=== PATIENT | female | born 1940 | race Caucasian/White ===

== ENCOUNTER 2016-09-07 16:53 | Emergency (ER) | payer MEDICAID ==
[2016-09-07 17:18] VITALS: BP 137/66
--- NOTE | 2016-09-07 18:09 | ED ---
GI/ HPI - HPI Summary HPI Summary: 75 yr old female who missed two appointment with Dr Kaur on Wednesday and one appointment missed today with her as well. She presents here with complaint of loose stool for a month. No blood or black stool. She denies abdominal pain, fever, chills. She denies weakness. The patient complains of also having chronic spine pain for 50 years and she wants me to prescribe percocet. She states non of her doctors will give her percocet. She states the place she lives is purposely mis informing her of appointments because they hate her. In discussing the case with Dr Matthew control panel operator crude unit for Dr Kaur, he states the patient has schizophrenia, and that they are aware of the patient coming here. - History of Current Complaint Chief Complaint: UCGI Time Seen by Provider: 09/07/16 17:29 Stated Complaint: DIARRHEA - Allergy/Home Medications Allergies/Adverse Reactions: Allergies Allergy/AdvReac Type Severity Reaction Status Date / Time No Known Allergies Allergy Verified 09/07/16 17:06 Home Medications: Home Medications Acetaminophen TAB* [Tylenol TAB*] 2 tab PO BID 09/07/16 [History Confirmed 09/07] Amlodipine Besylate [Norvasc 2.5 mg tab] 1 tab PO DAILY 09/07/16 [History Confirmed 09/07/16] Amlodipine Besylate [Norvasc 2.5 mg tab] 1 tab PO QPM 09/07/16 [History Confirmed 09/07/16] Amlodipine Besylate [Norvasc 5 mg tab] 1 tab PO QPM 09/07/16 [History Confirmed 09/07/16] Aspirin [Aspirin 81 MG TAB] 1 tab PO DAILY 09/07/16 [History Confirmed 09/07/16] Atorvastatin* [Lipitor 20 MG*] 1 tab PO QAM 09/07/16 [History Confirmed 09/07/16 ] Dextromethorphan-Guaifenesin [Mucinex Dm Maximum Streng 60-1200 mg] 1 tab PO BID PRN 09/07/16 [History Confirmed 09/07/16] Divalproex ER TAB(*) [Depakote ER TAB(*)] 1 tab PO QPM 09/07/16 [History Confirmed 09/07/16] Escitalopram Oxalate [Lexapro] 1 tab PO QAM 09/07/16 [History Confirmed 09/07/16 ] Gabapentin CAP(*) [Neurontin 100 mg CAP(*)] 1 tab PO TID 09/07/16 [History Confirmed 09/07/16] Incontinence Supplies Disposab [Prevail Brief/Small] 1 udc TRANSDERM DAILY PRN 09/07/16 [History Confirmed 09/07/16] Incontinence Supplies Disposab [Underpads Extra Large] 1 pad TRANSDERM TID PRN 09/07/16 [History Confirmed 09/07/16] Latanoprost 0.005% OPTH (NF) [Xalatan 0.005% OPTH*] 1 drop BOTH EYES BEDTIME [History Confirmed 09/07/16] Magnesium Oxide TAB* [MagOx 400 TAB*] 1 tab PO QAM 09/07/16 [History Confirmed 09/07/16] Meloxicam(NF) [Mobic(NF)] 1 tab PO QAM 09/07/16 [History Confirmed 09/07/16] Nicotine PATCH 7 MG/24 HR* 1 patch TRANSDERM DAILY 09/07/16 [History Confirmed 09/07/16] Olanzapine [Zyprexa] 1 tab PO BEDTIME 09/07/16 [History Confirmed 09/07/16] Sennosides-Docusate Sodium [Isa-Colace 8.6-50 mg] 1 tab PO BID 09/07/16 [ History Confirmed 09/07/16] Timolol 0.25% OPHTH.SOLN* [Timoptic Ophth.soln 0.25%*] 1 drop BOTH EYES DAILY [History Confirmed 09/07/16] Tiotropium CAP.INH* [Spiriva CAP.INH*] 1 cap INH DAILY 09/07/16 [History Confirmed 09/07/16] Tolterodine Tartrate [Detrol LA] 1 tab PO QAM 09/07/16 [History Confirmed ] Venlafaxine EXT RELEASE CAP* [Effexor Xr CAP*] 1 tab PO DAILY 09/07/16 [History Confirmed 09/07/16] busPIRone TAB* [Buspar TAB*] 1 tab PO TID 09/07/16 [History Confirmed 09/07/16] PMH/Surg Hx/FS Hx/Imm Hx Previously Healthy: Yes Endocrine/Hematology History: Denies: Hx Diabetes, Hx Thyroid Disease Cardiovascular History: Denies: Hx Hypertension Respiratory History: Reports: Hx Chronic Obstructive Pulmonary Disease (COPD) Denies: Hx Asthma GI History: Denies: Hx Ulcer - Cancer History Cancer Type, Location and Year: BREAST CANCER 2016 - RIGHT SIDE MASTECTOMY - Surgical History Surgery Procedure, Year, and Place: 2016 MASTECTOMY Infectious Disease History: No Infectious Disease History: Reports: Hx Shingles - AT AGE 35 Denies: Hx Clostridium Difficile, Hx Hepatitis, Hx Human Immunodeficiency Virus (HIV), Hx of Known/Suspected MRSA, Hx Tuberculosis, Hx Known/Suspected VRE , Hx Known/Suspected VRSA, History Other Infectious Disease, Traveled Outside the [place] in Last 30 Days - Family History Known Family History: Positive: Unknown - patient does not know - Social History Alcohol Use: None Substance Use Type: Reports: None Smoking Status (MU): Heavy Every Day Tobacco Smoker Type: Cigarettes Amount Used/How Often: SMOKING SINCE AGE 23 YOA. SMOKES 1 PPD Review of Systems Constitutional: Negative Eyes: Negative ENT: Negative Cardiovascular: Negative Respiratory: Negative Positive: Diarrhea Positive: Other - chronic back pain Skin: Negative Neurological: Negative Psychological: Normal All Other Systems Reviewed And Are Negative: Yes Physical Exam Triage Information Reviewed: Yes Vital Signs On Initial Exam: Initial Vitals Temp Pulse Resp BP Pulse Ox 98.2 F 77 16 137/66 99 09/07/16 17:08 09/07/16 17:08 09/07/16 17:08 09/07/16 17:08 09/07/16 17:08 Vital Signs Reviewed: Yes Appearance: Positive: Well-Appearing, No Pain Distress, Well-Nourished Skin: Positive: Warm Head/Face: Positive: Normal Head/Face Inspection Eyes: Positive: Normal, EOMI ENT: Positive: Pharynx normal Neck: Positive: Supple Respiratory/Lung Sounds: Positive: Clear to Auscultation, Breath Sounds Present Cardiovascular: Positive: Normal, RRR. Negative: Murmur Abdomen Description: Positive: Nontender Musculoskeletal: Positive: Normal, Strength/ROM Intact Neurological: Positive: Normal, Sensory/Motor Intact, Alert, Oriented to Person Place, Time, CN Intact II-III Psychiatric: Positive: Normal Diagnostics - Vital Signs Vital Signs Temp Pulse Resp BP Pulse Ox 09/07/16 17:08 98.2 F 77 16 137/66 99 - Laboratory Lab Statement: Any lab studies that have been ordered have been reviewed, and results considered in the medical decision making process. GIGU Course/Dx - Course Course Of Treatment: 75 yr old female with schizophrenia and multiple complaints. Her PMD will call the patient and the place where she lives and arrange transport for the patient to their office for a follow up visit. - Diagnoses Provider Diagnoses: Diarrhea Discharge - Discharge Plan Condition: Good Disposition: HOME Patient Education Materials: Chronic Diarrhea (ED) Referrals: Non Staff,Doctor [Primary Care Provider] - Beverly Kaur MD [Medical Doctor] -
== END 2016-09-07 18:33 | disposition home or self-care (01) ==
LOC: UCCORT 16:53
DX: R19.7 Diarrhea, unspecified (principal); F20.9 Schizophrenia, unspecified; F17.210 Nicotine dependence, cigarettes, uncomplicated; Z79.82 Long term (current) use of aspirin; Z85.3 Personal history of malignant neoplasm of breast; M54.9 Dorsalgia, unspecified; G89.29 Other chronic pain
CPT/HCPCS: 99202; G0463

== ENCOUNTER 2017-08-29 18:06 | Inpatient (IN) | payer MEDICARE, MEDICAID ==
[2017-08-29] MEDS ORDERED: Acetaminophen TAB* 325 MG PO ONE (19:43)
[2017-08-29] MEDS ORDERED: LORazepam TAB(*) 1 MG PO ONE (19:46)
[2017-08-29] MEDS ORDERED: Haloperidol TAB* 5 MG PO ONE (19:47)
[2017-08-29] MEDS ORDERED: diPHENhydraMINE PO* 50 MG PO ONE (19:47)
--- OUTSIDE RECORDS SUMMARY | 2017-08-29 19:50 | XMS REPORT ---
:1940 External Reference #:[id number] Author Organization [facility] Address [address] [place] [id number] Phone [phone] Care Team Providers Name Role Phone Beverly Kaur M.D. Care Team Information Tube Test Technician Unavailable Jocelin Kern MD Primary Care Physician Unavailable Payers Type Date Identification Numbers Payment Provider Subscriber Medicare Primary Effective: Policy Number: [id number] Medicare Bernadette Trotter 2007 PayID: [id number] [address] [place] [address] Medigap Part B Policy Number: [id number] Medicaid Bernadette Trotter Group Name: 1 1 [address] PayID: [id number] [place] [address] Problems Date Description Provider Status Onset: 10/23/2011 Urinary incontinence Maribel Angeles M.D Active Onset: 06/15/2017 Incompetent urethral closure Muna Pierce M.D. Active mechanism Onset: 06/15/2017 Microscopic hematuria Muna Pierce M.D. Active Onset: 06/15/2017 Retention of urine Muna Pierce M.D. Active Onset: 06/15/2017 Mixed urinary incontinence Muna Pierce M.D. Active Onset: 07/29/2017 Female stress incontinence Muna Pierce M.D. Active Onset: 07/29/2017 Uninhibited neurogenic bladder Muna Pierce M.D. Active Onset: 06/15/2017 Nocturia Muna Pierce M.D. Active Onset: 06/15/2017 Atrophic vaginitis Muna Pierce M.D. Active Onset: 06/15/2017 Urge incontinence of urine Muna Pierce M.D. Active Onset: 06/15/2017 Nocturnal enuresis Muna Pierce M.D. 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 Hyperkalemia Active Onset: 01/28/2016 Obsessive-compulsive disorder Active Onset: 01/28/2016 Schizoaffective disorder, manic Active type Onset: 01/28/2016 Chronic obstructive lung disease Active Onset: 01/28/2016 Hypoxia Active Onset: 03/12/2016 History of right mastectomy Active Family History Date Family Member(s) Problem(s) Comments First Brother Prostate Cancer First Sister Breast Cancer Social History Type Date Description Comments Marital Status Occupation Patient is retired Cigarette Use 03/18/2017 currently smokes 1/2 Pack Daily Cigars Never Smoked Cigars Pipe Never Smoked A Pipe ETOH Use Patient denies alcohol use Allergies, Adverse Reactions, Alerts Date Description Reaction Status Severity Comments 10/23/2011 Navane active 10/23/2011 Naproxen active 10/23/2011 Propoxyphene active 12/27/2015 Hydrocodone Nausea And Vomiting active 10/23/2011 Apap active 12/27/2015 Methadone active 10/23/2011 Tetanus active 12/27/2015 Oxycodone active 12/27/2015 Tetanus Toxoids active Medications Medication Date Status Form Strength Qnty SIG Indications Ordering Provider Myrbetriq 06/15 Active Tablets ER 50mg 30tab 1 po qd R35.1 24HR s Muna Delarosa M.D. Estrace 06/15 Active Cream 0.1mg/GM 42.5u 1/4 Gram To N95.2 nits Periurethra Muna Delarosa M.D. Daily Tolterodine 12/04 Active Caps ER 4mg 30cap 1 by mouth Herson-Sha Tartrate ER 24HR s every day Maribel foster M.D Amlodipine 08/27 Active Tablets 5mg Take 5 mg Unknown Besylate by mouth daily Calcium 600 Active Tablets 600mg daily Unknown / Depakote ER Active Tablets ER 500mg bid Unknown 24HR Docusate Sodium Active Capsules 100mg 60cap 1 po bid Unknown /0000 s Buspirone HCL Active Unknown / Magnesium Oxide Active Unknown -MG Supplement Nicotine Active Unknown Transdermal / System Spiriva Active Unknown Respimat / Trazodone HCL Active Tablets 50mg Unknown / Aspirin Ec Low Active Tablets DR 81mg Take 81 mg Unknown Dose / by mouth daily Latanoprost Active Solution 0.005% Administer Unknown / 1 drop to both eyes nightly Olanzapine Active Tablets 5mg Take 5 mg Unknown /0000 by mouth nightly Oxybutynin Active Tablets 5mg Take 5 mg Unknown Chloride / by mouth 3 (three) times a day Lorazepam Active Tablets 0.5mg Take 0.5 mg Unknown /0000 by mouth every 4 (four) hours as needed for anxiety Atorvastatin Active Tablets 20mg Take 20 mg Unknown Calcium /0000 by mouth nightly Meloxicam Active Tablets 7.5mg Take 7.5 mg Unknown /0000 by mouth daily Nystatin Active Suspension [id number] Take Unknown /0000 t/ML 500,000 Units by mouth daily Sennosides-Docu Active Tablets 8.6-50mg Take 2 Unknown sate Sodium /0000 tablets by mouth nightly Timolol Maleate Active Solution 0.25% Administer Unknown /0000 1 drop to both eyes daily Venlafaxine HCL Active Caps ER 75mg Take 75 mg Unknown ER /0000 24HR by mouth daily Acetaminophen Active Tablets 500mg Take 2 Unknown Extra Strength /0000 tablets by mouth every 8 (eight) hours as needed for pain or fever Duloxetine HCL Active Caps DR 20mg Take 40 mg Unknown /0000 Part by mouth Gabapentin Active Capsules 300mg Take 300 mg Unknown /0000 by mouth Lactaid Fast Active Chewtabs 9000Unit Chew 1 Unknown Act /0000 tablet Pantoprazole Active Tablets DR 40mg Take 40 mg Unknown Sodium / by mouth Viibryd Active Tablets 20mg Take 1 Unknown tablet by mouth daily Polyethylene Active Powder 3350NF Take 17 g Unknown Glycol 3350 /0000 by mouth Albuterol Active Nebulizer (2.5mg/3M Inhale 2.5 Unknown Sulfate /0000 L) 0.083% mg Ventolin HFA Active Aerosol 108(90Bas Inhale 2 Unknown / e) puffs mcg/Act Ipratropium Active Solution 0.5-2.5(3 Inhale 3 mL Unknown [place]/Albuter /0000 )mg/3ML ol Sulfate Mirtazapine Active Tablets 7.5mg Take 7.5 mg Unknown / by mouth Nitrofurantoin 03/22 Hx Capsules 100mg 14cap 1 by mouth Simeon Monohyd Macro s twice a day Luzmaria foster M.D 06/15 Cephalexin 03/02 Hx Capsules 250mg 9caps 1 by mouth Simeon /2016 every 8 cristian, - hours for 3 Shaheen López Ciprofloxacin 11/16 Hx Tablets 250mg 2tabs 1 by mouth Rory, PO HCL /2016 after Jl Sherman - office 11/17 procedure and one in [address]. [address] Valadez Nystatin/Triamc 10/22 Hx Cream [id number]. 1tube apply twice Simeon inolone /2011 1Unit/GM- per day to cristian - % groin as Shaheen López 11/08 directed x 2 weeks Abilify Hx Tablets 30mg daily Unknown / - 11/08 Evista Hx Tablets 60mg Unknown - 11/08 Glucosamine/Cho Hx Capsules 500-400mg bid Unknown ndroitin / - 11/08 Inderal Hx Caps ER 10mg prn 24HR - 11/08 Lexapro Hx Tablets 20mg Unknown - 11/08 Lisinopril Hx Tablets 10mg Unknown - 11/08 Multi Vitamin Hx Capsules Unknown - 11/[address] 40mg Unknown - 11/08 Seroquel XR Hx Tablets ER 300mg Unknown 24HR - 11/08 Zocor Hx Tablets 40mg daily Unknown - 11/08 Olanzapine Hx - 01/15 Vital Signs Date Vital Result Comment 07/29/2017 BP Systolic 142 mmHg BP Diastolic 92 mmHg Post Void Residual ml 0 Bladder Scanner, Indication: med check 06/15/2017 Height 57 inches 4'9" Weight 180.00 lb Weight in kg's 81.648 BMI (Body Mass Index) 38.9 kg/m2 BP Systolic 130 mmHg BP Diastolic 82 mmHg Post Void Residual ml 0 Bladder Scan, Indication: incont 03/18/2017 Height 57 inches 4'9" BP Systolic 113 mmHg BP Diastolic 72 mmHg Heart Rate 79 /min Body Temperature 98.3 F PO Post Void Residual ml 54 Bladder Scan, Indication:frequency 03/02/2017 Height 57.01 inches 4'9.01" BMI (Body Mass Index) 35.49 kg/m2 03/02/2017 BP Systolic 152 mmHg BP Diastolic 83 mmHg Heart Rate 74 /min Respiratory Rate 16 /min Body Temperature 97.6 F 01/18/2017 Post Void Residual ml 63 Bladder Scan, Indication:frequency 11/09/2016 Height 57 inches 4'9" Weight 170.00 lb Weight in kg's 77.112 BMI (Body Mass Index) 36.8 kg/m2 BP Systolic 143 mmHg BP Diastolic 87 mmHg Heart Rate 81 /min Post Void Residual ml 14 Bladder Scan, Indication: retention 10/23/2011 Height 63 inches 5'3" Weight 170.00 lb Weight in kg's 77.112 BMI (Body Mass Index) 30.1 kg/m2 BP Systolic 155 mmHg BP Diastolic 92 mmHg Heart Rate 81 /min Results Test Date Test Result H/L Range Note 230 Ua Routine 07/29/2017 Ua Glucose Negative Ua Protein Negative Ua Nitrite Negative Ua Leuko Trace Ua Blood Negative Ua Color Not Entered Ua Ketones Trace Ua Clarity Not Entered Ua Specific [place] 1.025 1.003-1.030 Ua PH 6.0 5.0-7.5 Ua Bilirubin Negative Ua Urobilinogen 0.2 E.U./dL 0.0-1.0 230 Ua Routine 06/15/2017 Ua Glucose Negative Ua Protein Negative Ua Nitrite Negative Ua Leuko Small Ua Blood Negative Ua Color Not Entered Ua Ketones Negative Ua Clarity Not Entered Ua Specific [place] 1.015 1.003-1.030 Ua PH 6.5 5.0-7.5 Ua Bilirubin Negative Ua Urobilinogen 0.2 E.U./dL 0.0-1.0 Laboratory test finding 03/18/2017 Urine Culture SPECIMEN DESCRI> 1 230 Ua Routine 03/18/2017 Ua Glucose Negative Ua Protein Trace Ua Nitrite Negative Ua Leuko Trace Ua Blood Trace-intact Ua Color Not Entered Ua Ketones Trace Ua Clarity Not Entered Ua Specific [place] 1.015 1.003-1.030 Ua PH 6.0 5.0-7.5 Ua Bilirubin Small Ua Urobilinogen 0.2 E.U./dL 0.0-1.0 Ua RFX Micro & Culture II 02/25/2017 Urine Color YELLOW Yellow Urine Clarity CLEAR Clear Urine Glucose - Dipstick NEGATIVE mg/dL Negative Urine Bilirubin - Dipstick NEGATIVE Negative Urine Ketone TRACE mg/dL High Negative Urine Specific [place] <=1.005 Low 1.010-1.030 Urine Blood NEGATIVE Negative Urine PH 7.0 6.5-7.5 Urine Protein - Dipstick NEGATIVE mg/dL Negative Urine Urobilinogen - Dipstick 0.2 E.U./dL 0.2-1.0 Urine Nitrite - Dipstick NEGATIVE Negative Urine Leuk Esterase NEGATIVE Negative Urine Culture 02/25/2017 Urine Culture ENTEROCOCCUS CASE <SEE NOTE> 2 Quantity > 100,000 CFU/mL 3 Urine Culture URETHRAL DENIZ Quantity 10,000 - 50,000 <SEE NOTE> 4 Enterococcus Faecalis 02/25/2017 Penicillin G 8 Tetracycline >=16 Nitrofurantoin <=16 Ampicillin <=2 Amoxicillin <pending> Amoxicillin/Clavulanate <pending> Ampicillin/Sulbactam <pending> Ciprofloxacin >=8 Levofloxacin >=8 Piperacillin <pending> Vancomycin 1 CBC W/Diff 02/15/2017 Hemoglobin 12.4 Hematocrit 37.8 CMP 02/15/2017 BUN - Urea Nitrogen 26 Creatinine 0.9 Calcium 8.4 Alkaline Phosphatase 80 Ast (Sgot) 19 Potassium 5.0 Alt (SGPT) 28 230 Ua Routine 01/18/2017 Ua Glucose Negative Ua Protein Negative Ua Nitrite Negative Ua Leuko Small Ua Blood Negative Ua Color Not Entered Ua Ketones Trace Ua Clarity Not Entered Ua Specific [place] 1.020 1.003-1.030 Ua PH 5.5 5.0-7.5 Ua Bilirubin Small Ua Urobilinogen 1.0 E.U./dL 0.0-1.0 230 Ua Routine 12/04/2016 Ua Glucose Negative Ua Protein 30 mg/dL Ua Nitrite Negative Ua Leuko Small Ua Blood Negative Ua Color Not Entered Ua Ketones Negative Ua Clarity Not Entered Ua Specifici [place] >=1.030 1.003-1.030 Ua PH 5.0 5.0-7.5 Ua Bilirubin Negative Ua Urobilinogen 0.2 E.U./dL 0.0-1.0 230 Ua Routine 11/16/2016 Ua Glucose Negative Ua Protein Negative Ua Nitrite Negative Ua Leuko Moderate Ua Blood Trace-lysed Ua Color Not Entered Ua Ketones Negative Ua Clarity Not Entered Ua Specifici [place] <=1.005 1.003-1.030 Ua PH 6.0 5.0-7.5 Ua Bilirubin Negative Ua Urobilinogen 0.2 E.U./dL 0.0-1.0 Laboratory test finding 11/09/2016 Urine Culture SPECIMEN DESCRI> 5 230 Ua Routine 11/09/2016 Ua Glucose Negative Ua Protein 30 mg/dL Ua Nitrite Negative Ua Leuko Large Ua Blood Small Ua Color Not Entered Ua Ketones Trace Ua Clarity Not Entered Ua Specifici [place] 1.025 1.003-1.030 Ua PH 5.5 5.0-7.5 Ua Bilirubin Small Ua Urobilinogen 0.2 E.U./dL 0.0-1.0 Laboratory test finding 09/03/2016 Urine Culture Mixed Deniz CBC W/Diff 09/01/2016 Hemoglobin 13.7 Hematocrit 40.0 CMP 09/01/2016 BUN - Urea Nitrogen 21 Creatinine 0.9 #Ua Routine 11/02/2011 Ua Glucose Negative Ua Protein Negative Ua Nitrite Negative Ua Leuko Negative Ua Blood Trace-lysed Ua Color Not Entered Ua Ketones Negative Ua Clarity Not Entered Ua Specific [place] 1.010 Ua PH 7.0 Ua Bilirubin Negative Ua Urobilinogen 0.2 E.U./dL #Ua Routine 10/23/2011 Ua Glucose Negative Ua Protein Negative Ua Nitrite Negative Ua Leuko Negative Ua Blood Negative Ua Color Not Entered Ua Ketones Trace Ua Clarity Not Entered Ua Specific [place] 1.015 Ua PH >=9.0 Ua Bilirubin Negative Ua Urobilinogen 0.2 E.U./dL 1 SPECIMEN DESCRIPTION BLADDER URINE CULTURE RESULTS >100,000 CFU/ML ENTEROCOCCUS SPECIES >100,000 CFU/ML BETA HEMOLYTIC STREPTOCOCCI GROUP B ISOLATED NOTE: BETA HEMOLYTIC STREPTOCOCCI ARE STILL UNIFORMLY SUSCEPTIBLE TO PENICILLINS AND CEPHALOSPORINS. A SUSCEPTIBILITY WILL BE PERFORMED UPON REQUEST. REPORT STATUS FINAL 03/21/2017 ORGANISM ENTEROCOCCUS SPECIES METHOD MANISH AMPICILLIN <=2 SUSCEPTIBLE ISOLATES SUSCEPTIBLE TO AMPICILLIN ARE ALSO SUSCEPTIBLE TO AMOXICILLIN. CIPROFLOXACIN >=8 RESISTANT LEVOFLOXACIN >=8 RESISTANT NITROFURANTOIN <=16 SUSCEPTIBLE VANCOMYCIN 1 SUSCEPTIBLE ENTEROCOCCI ARE RESISTANT TO ALL CEPHALOSPORINS,CLINDAMYCIN, TRIMETHOPRIM/SULFA AND AMINOGLYCOSIDES (EXCEPT FOR HIGH-LEVEL RESISTANCE SCREENING), THESE ARE NOT REPORTED PER [facility] STANDARDS. 2 ENTEROCOCCUS FAECALIS 3 > 100,000 CFU/mL 4 10,000 - 50,000 CFU/mL 5 SPECIMEN DESCRIPTION BLADDER URINE CULTURE RESULTS MIXED UROGENITAL DENIZ; PLEASE SUBMIT A NEW SPEC IMEN IF CLINICALLY INDICATED. REPORT STATUS FINAL 11/10/2016 Procedures Date CPT Code Description Status Comment 07/29/2017 04425 Bladder Scan, Post Voiding Residual Urine Completed 06/15/2017 83531 Bladder Scan, Post Voiding Residual Urine Completed 03/18/2017 66021 Bladder Scan, Post Voiding Residual Urine Completed 03/02/2017 62309 Injection, Endoscopic Of Implant Material Into Completed The Submucosal-Hos 01/18/2017 02153 Bladder Scan, Post Voiding Residual Urine Completed 12/04/2016 43857 Cystourethroscopy, Separate Procedure Completed 12/04/2016 96127 Urodynamics, Voiding Pressure Studies Intra Completed Abdominal Prof Comp 12/04/2016 25902 Urodynamics, Electromyography Studies EMG Of Completed Anal Or Urethra pc 12/04/2016 83129 Complex Cystometrogram, With Voiding Pressure Completed Studies Prof Comp 11/16/2016 48054 Urodynamics, Voiding Pressure Studies Intra Completed Abdominal Tech Comp 11/16/2016 44030 Urodynamics, Electromyography Studies EMG Of Completed Anal Or Urethra TC 11/16/2016 54353 Complex Cystometrogram, With Voiding Pressure Completed Studies Tech Comp 11/09/2016 33936 Bladder Scan, Post Voiding Residual Urine Completed 11/09/2016 Colonoscopy Completed 2017 11/02/2011 61480 Cystourethroscopy, Separate Procedure Completed Encounters Type Date Location Provider CPT E/M Dx Office Visit 07/29/2017 1:15p [place]/ [place].M.Muna Alejandro, 20207 N39.3 Urology M.D. N36.42 N39.41 N31.0 Office Visit 06/15/2017 1:30p [place]/ [place].M.Muna Alejandro, [address]005 N36.42 Urology M.D. R31.29 R33.8 N39.41 N95.2 R35.1 Office Visit 03/18/2017 10:10a [facility] Maribel Baker, [address]/ A.M.P. M.D Urology R31.29 R33.8 Office Visit 01/18/2017 2:30p Maribel Liz, [address]/ A[facility]. M.D Urology N39.46 N39.44 Office Visit 11/09/2016 1:50p Maribel Liz, [address]/ A[facility]. M.D Urology N39.44 R31.29 R39.14 R33.8 Office Visit 11/02/2011 1:30p Maribel Liz, [address]/ A.M.P. M.D Urology 112.2 Office Visit 10/23/2011 11:10a Maribel Liz, [address]/ A.M.P. M.D Urology 788.0-1 112.2 Plan of Care Future Appointment(s):09/23/2017 1:00 pm - Shane Nurse at [place]/ A.M.PStefanie Sxmlwlv3309/30/2017 1:00 pm - Muna Pierce M.D. at [place]/ Kathrine Qgabjsg6207/29/2017 - Muna Pierce M.D.N39.3 Stress incontinence (female ) (male)Comments:We discussed UROD testing in detail and she was provided with literature to take home. She knows to stop all anticholinergics 5 days prior to the study and to come in with a 3 day bladder diary.Follow up:F/U at her convenience for UROD Since she comes a long distance I will see her the same day to discuss the dotacgphT38.42 Intrinsic sphincter deficiency (Isd)Comments: I am not comfortable treating her based on her previous urodynamic testing. It was documented that she had intrinsic sphincter deficiency however I could not get her to leak on exam. Her symptoms soundmuch more like urge incontinence and review of the urodynamics in my mind shows detrusor instability. She would be a good candidate for Botox if that's the case. I have told her we need to repeat her urodynamic testing before I can make any recommendations.N39.41 Urge incontinenceComments:I want to rule out DI on her URODN31.0 Uninhibited neuropathic bladder, not elsewhere classifiedComments:I believe she has NDO but want to document better with urodynamic testing.AllComments:Patient is instructed to contact us if any questions, concerns, or problems at any time prior to scheduled follow-up appointment.
[2017-08-29 20:08] LABS: ABS Basophils 0 10^3/ul (0-0.2); ABS Eosinophils 0.2 10^3/ul (0-0.6); ABS Lymphocytes 2.3 10^3/ul (1.0-4.8); ABS Monocytes 0.7 10^3/ul (0-0.8); ABS Neutrophils 4.1 10^3/ul (1.5-7.7); ABS Nucleated RBC 0 10^3/ul; Eosinophil % 2.8 % (0-6); Hematocrit 46 % (35-47); Hemoglobin 15.9 g/dl (12.0-16.0); Lymphocyte % 31.1 % (25-47); Mean Corpuscular HGB Conc 35 g/dl (31-36); Mean Corpuscular Hemoglobin 36 pg (27-31); Mean Corpuscular Volume 103 fL (80-97); Mean Platelet Volume 8.4 um3 (7.4-10.4); Nucleated Red Blood Cells % 0; Platelet Count 210 10^3/ul (150-450); Red Blood Count 4.41 10^6/ul (4.0-5.4); Red Cell Distribution Width 13 % (10.5-15); White Blood Count 7.3 10^3/ul (3.5-10.8)
[2017-08-29 20:24] LABS: EGFR Non-African American 71.1 (>60)
[2017-08-29] MEDS ORDERED: Nicotine Inhaler* 10 MG AMP ONE ×2 (20:30)
[2017-08-29] MEDS ORDERED: Mouth Piece, Nicotine* 1 EACH CARTRIDGE ONE (20:31)
[2017-08-29] MEDS: Nicotine Inhaler* 10 MG AMP INH PRN (20:35)
[2017-08-29] MEDS: Mouth Piece, Nicotine* 1 EACH CARTRIDGE INH PRN (20:35)
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
--- NOTE | 2017-08-30 05:32 | ED ---
Lexus Kevin Rebecca, scribed for Elisa Ang MD on 08/30/17 at 0116 . Progress - Progress Note Progress Note: Pt was signed out by Dr. Apple, pending dispo, awaiting MHE. - Consult/PCP Time Called: 23:30 Course/Dx - Course Course Of Treatment: Pt was signed out by Dr. Apple, pending dispo, awaiting MHE. Cleared for MHE at 2307. Upon completion of MHE and consultation with Dr. Roldan, it has been determined that the pt will be admitted with Dx of schizophrenia. - Diagnoses Provider Diagnoses: Schizophrenia Discharge - Sign-Out/Discharge Documenting (check all that apply): Discharge - Admitted, Receiving Sign-Out Receiving patient FROM: Aixa Apple - Discharge Plan Condition: Stable Disposition: [facility] Referrals: Non Staff,Doctor [Primary Care Provider] - The documentation as recorded by the Lexus christianson Rebecca accurately reflects the service I personally performed and the decisions made by , Elisa Ang MD.
[2017-08-30 10:14] LABS: Urine Appearance Clear; Urine Blood Negative (Negative); Urine Color Yellow; Urine Ketones Negative (Negative); Urine Protein Negative (Negative); Urine Specific Gravity 1.017 (1.010-1.030); Urine Urobilinogen Negative (Negative)
[2017-08-30] MEDS ORDERED: Haloperidol TAB* 5 MG PO PRN ×2 (16:44→16:47)
[2017-08-30] MEDS ORDERED: Albuterol HFA INHALER* 8 gm MDI INH PRN (17:13)
--- NOTE | 2017-08-30 17:22 | ED ---
Ilan Kevin Angela, scribed for Baldev Hoskins MD on 08/30/17 at 1713 . Progress - Progress Note Progress Note: This pt was signed out at shift change by Dr. Ang, pending disposition, awaiting MHE. Pt was evaluated by the mental health argon tester and her case was reviewed by Dr. Perry. Dr. Perry spoke with Dr. Roldan who states Dr. Rodlan never admitted the pt earlier. Dr. Perry recommends admission. Therefore pt will be admitted involuntarily, in stable condition, with schizoaffective disorder. Course/Dx - Diagnoses Provider Diagnoses: Schizoaffective disorder Discharge - Sign-Out/Discharge Documenting (check all that apply): Discharge - [place] [facility] [place] Discharge Plan Condition: Stable Disposition: [facility] Referrals: Non Staff,Doctor [Primary Care Provider] - The documentation as recorded by the Ilan christianson Angela accurately reflects the service I personally performed and the decisions made by , Baldev Hoskins MD.
[2017-08-30] MEDS: LORazepam TAB(*) 1 MG PO PRN (17:46)
[2017-08-30] MEDS: Latanoprost 0.005%* 2.5 ml BTL BOTH EYES SCH (22:01)
[2017-08-30] MEDS: QUEtiapine TAB* 100 MG PO SCH (22:01)
[2017-08-30] MEDS: Gabapentin CAP(*) 300 MG PO SCH (22:01)
[2017-08-30] MEDS: Atorvastatin* 20 MG TAB PO SCH (22:01)
[2017-08-30] MEDS: Nicotine Patch Removal NOTE PATCH OFF SCH (22:01)
[2017-08-30] MEDS: Divalproex DR TAB(*) 500 MG PO SCH (22:01)
[2017-08-30] MEDS: Estradiol VAG CM (NF) 1 APPLIC TUBE VAGINAL SCH (22:01)
[2017-08-30] MEDS: Timolol 0.5% OPTH.SOL* BTL BOTH EYES SCH (22:02)
[2017-08-30] MEDS: traZODone TAB* 50 MG TAB PO SCH (22:02)
[2017-08-31] MEDS: LORazepam TAB(*) 1 MG PO PRN (03:34)
[2017-08-31] MEDS ORDERED: Oxybutynin XL TAB* 5 MG PO SCH (09:00)
[2017-08-31] MEDS ORDERED: Spiriva Inhaler DEVICE* 1 EACH DEVICE INH ONE (09:00)
[2017-08-31] MEDS: Gabapentin CAP(*) 300 MG PO SCH ×3 (09:30→23:10)
[2017-08-31] MEDS: QUEtiapine TAB* 100 MG PO SCH ×3 (09:30→23:10)
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
[2017-08-31] MEDS: Nicotine PATCH 14 MG/24 HR* PATCH TRANSDERM SCH (13:14)
[2017-08-31] MEDS: Tiotropium CAP.INH* CAP.INH/18 MCG (USE ORDER SET !) INH SCH (13:16)
[2017-08-31] MEDS: Omeprazole CAP* 20 MG PO SCH (13:18)
[2017-08-31] MEDS: Magnesium Oxide TAB* 400 MG PO SCH (13:18)
[2017-08-31] MEDS: Aspirin EC TAB* 81 MG TAB.EC PO SCH (13:18)
[2017-08-31] MEDS: DULoxetine DR CAP* 60 MG CAP.DR PO SCH (13:19)
[2017-08-31] MEDS: amLODIPine TAB* 5 MG PO SCH (13:19)
[2017-08-31] MEDS ORDERED: oxyCODONE/Acetamin 5/325 MG* TAB PO ONE (17:01)
[2017-08-31] MEDS ORDERED: Acetaminophen TAB* 325 MG PO ONE (17:01)
[2017-08-31] MEDS: Nicotine Patch Removal NOTE PATCH OFF SCH (22:18)
[2017-08-31] MEDS ORDERED: Haloperidol TAB* 2 MG PO PRN (22:29)
[2017-08-31] MEDS: Divalproex DR TAB(*) 500 MG PO SCH (23:02)
[2017-08-31] MEDS: Latanoprost 0.005%* 2.5 ml BTL BOTH EYES SCH (23:02)
[2017-08-31] MEDS: Atorvastatin* 20 MG TAB PO SCH (23:02)
[2017-08-31] MEDS: Estradiol VAG CM (NF) 1 APPLIC TUBE VAGINAL SCH (23:02)
[2017-08-31] MEDS: Timolol 0.5% OPTH.SOL* BTL BOTH EYES SCH (23:02)
[2017-08-31] MEDS: traZODone TAB* 50 MG TAB PO SCH (23:03)
[2017-09-01] MEDS: Tiotropium CAP.INH* CAP.INH/18 MCG (USE ORDER SET !) INH SCH (08:17)
[2017-09-01] MEDS: Gabapentin CAP(*) 100 MG PO SCH ×3 (08:20→22:05)
[2017-09-01] MEDS: DULoxetine DR CAP* 60 MG CAP.DR PO SCH (08:20)
[2017-09-01] MEDS: Magnesium Oxide TAB* 400 MG PO SCH (08:20)
[2017-09-01] MEDS: Omeprazole CAP* 20 MG PO SCH (08:20)
[2017-09-01] MEDS: Aspirin EC TAB* 81 MG TAB.EC PO SCH (08:20)
[2017-09-01] MEDS: Oxybutynin XL TAB* 5 MG PO SCH (08:21)
[2017-09-01] MEDS: amLODIPine TAB* 5 MG PO SCH (08:21)
[2017-09-01] MEDS: Nicotine PATCH 14 MG/24 HR* PATCH TRANSDERM SCH (08:23)
[2017-09-01] MEDS ORDERED: ALPRAZolam TAB* 0.5 MG PO ONE (09:00)
--- NOTE | 2017-09-01 10:39 | PN ---
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 Patient's family would like her to return to [facility] where she has family supports. I also wonder whether separation from her brothers and daughter may have been causative factor in patient's mood dysregulation over past couple of years. Patient continues to have difficulty with bladder incontinence intermittently. Nursing staff notes reviewed. Patient has not been a behavioral management problem since admission to our unit. She is pleasant enough. tends to be highly anxious and worries about multiple issues. fairly impulsive and will interrupt conversation in order to ask a question of staff. has great difficlty delaying immediate gratification. Patient has good appetite. She does complain of lower back pain and does appear uncomfortable when ambulating. SHe relies on walker to ambulate which diminishes pain when she walks. Patient refused MRI of the head today she told me that she doesnt need it because she didnt have a stroke. SHe told me that the forgetfulness, and inability to retain or remember information is related to her being worried about so many things and feeling alot of stress. She tells me that certain days are better than others. She reports that she is sleeping wello She is not agitated. thought process reveals racing thoughts which is evident from her speech. she has grandiose delusons that she is wrting a book which is going to win an award. Patient is alert but not oriented at all today. she cannot tell me day, date, month, year, name of place. she knows that I am a doctor. Labs: none drawn yesterday Impression: schizoaffective disorder bipolar type. currently hypomanic rule out superimposed Major neurocognitive Disorder. etiology not yet clear. patient refused MRI. will try again tomorrow. Plan - Plan Medications: Current Medications Al Hydrox/Mg Hydrox/Simethicone (Maalox Plus*) 30 ml PO Q4H PRN PRN Reason: INDIGESTION Albuterol (Ventolin Hfa Inhaler*) 2 puff INH Q4H PRN PRN Reason: SOB/WHEEZING Amlodipine Besylate (Norvasc Tab*) 7.5 mg PO DAILY [facility] Last Admin: 09/01/17 08:21 Dose: 7.5 mg Aspirin (Aspirin Ec Tab*) 81 mg PO DAILY [facility] Last Admin: 09/01/17 08:20 Dose: 81 mg Atorvastatin Calcium (Lipitor*) 20 mg PO BEDTIME [facility] Last Admin: 08/31/17 23:02 Dose: 20 mg Device (Nicotine Mouth Piece*) 1 each INH .USE WITH NICOTROL PRN PRN Reason: CRAVING Last Admin: 09/01/17 14:44 Dose: 1 each Divalproex Sodium (Depakote Dr Tab(*)) 500 mg PO BEDTIME [facility] Last Admin: 08/31/17 23:02 Dose: 500 mg Duloxetine HCl (Cymbalta Cap*) 60 mg PO DAILY [facility] Last Admin: 09/01/17 08:20 Dose: 60 mg Estradiol (Estrace Vag Cm (Nf)) 1 applic VAGINAL BEDTIME [facility] Last Admin: 08/31/17 23:02 Dose: Not Given Gabapentin (Neurontin Cap(*)) 200 mg PO TID [facility] Last Admin: 09/01/17 14:17 Dose: 200 mg Haloperidol (Haldol Tab*) 2 mg PO Q4H PRN PRN Reason: agitation/psychosis Latanoprost (Xalatan 0.005%*) 1 drop BOTH EYES BEDTIME [facility] Last Admin: 08/31/17 23:02 Dose: Not Given Magnesium Oxide (Magox 400 Tab*) 400 mg PO DAILY [facility] Last Admin: 09/01/17 08:20 Dose: 400 mg Nicotine (Nicotine Inhaler*) 10 mg INH Q2H PRN PRN Reason: CRAVING Last Admin: 09/01/17 15:03 Dose: 10 mg Nicotine (Nicotine Patch 14 Mg/24 Hr*) 1 patch TRANSDERM DAILY [facility] Last Admin: 09/01/17 08:23 Dose: Not Given Omeprazole (Prilosec Cap*) 20 mg PO DAILY [facility] Last Admin: 09/01/17 08:20 Dose: 20 mg Oxybutynin Chloride (Ditropan Xl Tab*) 10 mg PO DAILY [facility] Last Admin: 09/01/17 08:21 Dose: 10 mg Pharmacy Profile Note (Nicotine Patch Removal Note*) 1 note PATCH OFF 2100 [facility] Last Admin: 08/31/17 22:18 Dose: Not Given Quetiapine Fumarate (Seroquel Xr Tab*) 200 mg PO DAILY@17 [facility] Timolol Maleate (Timoptic 0.5% Opth*) 1 drop BOTH EYES BEDTIME [facility] Last Admin: 08/31/17 23:02 Dose: Not Given Tiotropium [place] (Spiriva Cap.Inh*) 1 cap INH DAILY [facility] Last Admin: 09/01/17 08:17 Dose: 1 cap Trazodone HCl (Desyrel Tab*) 50 mg PO BEDTIME [facility] Last Admin: 08/31/17 23:03 Dose: 50 mg
--- NOTE | 2017-09-01 12:27 | RAD ---
INDICATION: Hypoxia COMPARISON: None TECHNIQUE: PA and lateral dual-energy views were obtained. FINDINGS: Bones/Soft Tissues: There are no acute bony findings. There is right chest wall surgery with right chest wall and axillary clips Cardiomediastinal: The cardiomediastinal silhouette is normal. Lungs: There are no infiltrates. Minimal linear change left lung base most consistent with platelike atelectasis or scarring Pleura: There are no pleural effusions. Other: There is partial eventration right hemidiaphragm IMPRESSION: NO ACTIVE CARDIOPULMONARY DISEASE.
[2017-09-01] MEDS: Mouth Piece, Nicotine* 1 EACH CARTRIDGE INH PRN (14:44)
[2017-09-01] MEDS: Nicotine Inhaler* 10 MG AMP INH PRN (15:03)
[2017-09-01] MEDS: Nicotine Patch Removal NOTE PATCH OFF SCH (19:43)
[2017-09-01] MEDS: QUEtiapine XR TAB* 200 MG PO SCH (21:52)
[2017-09-01] MEDS: traZODone TAB* 50 MG TAB PO SCH (21:52)
[2017-09-01] MEDS: Divalproex DR TAB(*) 500 MG PO SCH (21:52)
[2017-09-01] MEDS: Atorvastatin* 20 MG TAB PO SCH (21:52)
[2017-09-01] MEDS: Estradiol VAG CM (NF) 1 APPLIC TUBE VAGINAL SCH (22:00)
[2017-09-01] MEDS: Latanoprost 0.005%* 2.5 ml BTL BOTH EYES SCH (22:04)
[2017-09-01] MEDS: Timolol 0.5% OPTH.SOL* BTL BOTH EYES SCH (22:05)
[2017-09-02] MEDS: DULoxetine DR CAP* 60 MG CAP.DR PO SCH (07:47)
[2017-09-02] MEDS: Aspirin EC TAB* 81 MG TAB.EC PO SCH (07:47)
[2017-09-02] MEDS: Oxybutynin XL TAB* 5 MG PO SCH (07:47)
[2017-09-02] MEDS: Magnesium Oxide TAB* 400 MG PO SCH (07:47)
[2017-09-02] MEDS: Omeprazole CAP* 20 MG PO SCH (07:47)
[2017-09-02] MEDS: amLODIPine TAB* 5 MG PO SCH (07:48)
[2017-09-02] MEDS: Gabapentin CAP(*) 100 MG PO SCH ×3 (07:48→20:41)
[2017-09-02] MEDS: Tiotropium CAP.INH* CAP.INH/18 MCG (USE ORDER SET !) INH SCH (07:50)
[2017-09-02] MEDS: Nicotine PATCH 14 MG/24 HR* PATCH TRANSDERM SCH (07:51)
--- NOTE | 2017-09-02 11:28 | PN ---
Subjective - Subjective Subjective: Psychiatric Attending Progress Note: pleasant. attends groups. No evidence of aggression, agitation mood remains euthymic per nursing. once in a while makes an inflated statement about writing a book about mental illness. no evidence of perceptual disturbance or paranoia. Patient is not fully oriented, has impaired concentration and impaired short term memory. She requires assistance and supervision for self care. She is excessively talkative and occasionally a little giddy. She requires adult diapers for chronic urinary incontinence. She has fairly good insight Her judgment is impaired from chronic psychotic illness. She is adamant that she does not want to return to the longterm that sent her to ER. She [place] She eats and drinks independently and adequately. BP low tonight secondary to seroquel XR Vital Signs: Temp Pulse Resp BP Pulse Ox 97.3 F 97 14 96/62 93 09/02/17 20:00 09/02/17 20:00 09/02/17 20:41 09/02/17 20:00 09/02/17 20:00 Impression: SAD bipolar type currently with mild hypomania. patient's mental status is fairly stable. no evidence of homicidal or suicidal ideation or agitation since being admitted to [facility] Plan: lower SEroquel XR to 50 mg and change time from 5 pm to 9pm all other meds unchanged discharge plan is for patient to go to longterm/assisted living facility in [facility] which is where her family is located. Plan - Plan Treatment Plan: Name: ZAKIYA LESTER Birthdate: 1940 [id number] Medications: Current Medications Al Hydrox/Mg Hydrox/Simethicone (Maalox Plus*) 30 ml PO Q4H PRN PRN Reason: INDIGESTION Albuterol (Ventolin Hfa Inhaler*) 2 puff INH Q4H PRN PRN Reason: SOB/WHEEZING Amlodipine Besylate (Norvasc Tab*) 7.5 mg PO DAILY [facility] Last Admin: 09/02/17 07:48 Dose: 7.5 mg Aspirin (Aspirin Ec Tab*) 81 mg PO DAILY [facility] Last Admin: 09/02/17 07:47 Dose: 81 mg Atorvastatin Calcium (Lipitor*) 20 mg PO BEDTIME [facility] Last Admin: 09/02/17 20:41 Dose: 20 mg Device (Nicotine Mouth Piece*) 1 each INH .USE WITH NICOTROL PRN PRN Reason: CRAVING Last Admin: 09/02/17 16:38 Dose: 1 each Divalproex Sodium (Depakote Dr Tab(*)) 500 mg PO BEDTIME [facility] Last Admin: 09/02/17 20:42 Dose: 500 mg Duloxetine HCl (Cymbalta Cap*) 60 mg PO DAILY [facility] Last Admin: 09/02/17 07:47 Dose: 60 mg Estradiol (Estrace Vag Cm (Nf)) 1 applic VAGINAL BEDTIME [facility] Last Admin: 09/02/17 20:42 Dose: Not Given Gabapentin (Neurontin Cap(*)) 200 mg PO TID [facility] Last Admin: 09/02/17 20:41 Dose: 200 mg Haloperidol (Haldol Tab*) 2 mg PO Q4H PRN PRN Reason: agitation/psychosis Latanoprost (Xalatan 0.005%*) 1 drop BOTH EYES BEDTIME [facility] Last Admin: 09/02/17 21:05 Dose: Not Given Magnesium Oxide (Magox 400 Tab*) 400 mg PO DAILY [facility] Last Admin: 09/02/17 07:47 Dose: 400 mg Nicotine (Nicotine Inhaler*) 10 mg INH Q2H PRN PRN Reason: CRAVING Last Admin: 09/02/17 16:38 Dose: 10 mg Nicotine (Nicotine Patch 14 Mg/24 Hr*) 1 patch TRANSDERM DAILY [facility] Last Admin: 09/02/17 07:51 Dose: Not Given Omeprazole (Prilosec Cap*) 20 mg PO DAILY [facility] Last Admin: 09/02/17 07:47 Dose: 20 mg Oxybutynin Chloride (Ditropan Xl Tab*) 10 mg PO DAILY [facility] Last Admin: 09/02/17 07:47 Dose: 10 mg Pharmacy Profile Note (Nicotine Patch Removal Note*) 1 note PATCH OFF 2100 [facility] Last Admin: 09/02/17 20:42 Dose: Not Given Quetiapine Fumarate (Seroquel Xr Tab*) 50 mg PO DAILY@21 [facility] Timolol Maleate (Timoptic 0.5% Opth*) 1 drop BOTH EYES BEDTIME [facility] Last Admin: 09/02/17 21:06 Dose: Not Given Tiotropium [place] (Spiriva Cap.Inh*) 1 cap INH DAILY [facility] Last Admin: 09/02/17 07:50 Dose: 1 cap Trazodone HCl (Desyrel Tab*) 50 mg PO BEDTIME [facility] Last Admin: 09/02/17 21:06 Dose: 50 mg
[2017-09-02] MEDS: Nicotine Inhaler* 10 MG AMP INH PRN (16:38)
[2017-09-02] MEDS: Mouth Piece, Nicotine* 1 EACH CARTRIDGE INH PRN (16:38)
[2017-09-02] MEDS: QUEtiapine XR TAB* 200 MG PO SCH (17:35)
[2017-09-02] MEDS: Atorvastatin* 20 MG TAB PO SCH (20:41)
[2017-09-02] MEDS: Estradiol VAG CM (NF) 1 APPLIC TUBE VAGINAL SCH (20:42)
[2017-09-02] MEDS: Divalproex DR TAB(*) 500 MG PO SCH (20:42)
[2017-09-02] MEDS: Nicotine Patch Removal NOTE PATCH OFF SCH (20:42)
[2017-09-02] MEDS: Timolol 0.5% OPTH.SOL* BTL BOTH EYES SCH ×2 (20:43→21:06)
[2017-09-02] MEDS: Latanoprost 0.005%* 2.5 ml BTL BOTH EYES SCH ×2 (20:43→21:05)
[2017-09-02] MEDS: traZODone TAB* 50 MG TAB PO SCH (21:06)
[2017-09-03 07:17] LABS: EGFR Non-African American 61.2 (>60)
[2017-09-03] MEDS: Aspirin EC TAB* 81 MG TAB.EC PO SCH (09:08)
[2017-09-03] MEDS: Gabapentin CAP(*) 100 MG PO SCH ×3 (09:09→20:40)
[2017-09-03] MEDS: amLODIPine TAB* 5 MG PO SCH (09:10)
[2017-09-03] MEDS: Omeprazole CAP* 20 MG PO SCH (09:10)
[2017-09-03] MEDS: DULoxetine DR CAP* 60 MG CAP.DR PO SCH (09:10)
[2017-09-03] MEDS: Magnesium Oxide TAB* 400 MG PO SCH (09:10)
[2017-09-03] MEDS: Oxybutynin XL TAB* 5 MG PO SCH (09:12)
[2017-09-03] MEDS: Nicotine PATCH 14 MG/24 HR* PATCH TRANSDERM SCH (09:12)
[2017-09-03] MEDS: Nicotine Inhaler* 10 MG AMP INH PRN ×2 (09:17→16:24)
[2017-09-03] MEDS: Tiotropium CAP.INH* CAP.INH/18 MCG (USE ORDER SET !) INH SCH (09:18)
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
[2017-09-03] MEDS: Atorvastatin* 20 MG TAB PO SCH (20:39)
[2017-09-03] MEDS: Divalproex DR TAB(*) 500 MG PO SCH (20:40)
[2017-09-03] MEDS: Estradiol VAG CM (NF) 1 APPLIC TUBE VAGINAL SCH (20:40)
[2017-09-03] MEDS: Nicotine Patch Removal NOTE PATCH OFF SCH (20:41)
[2017-09-03] MEDS: Latanoprost 0.005%* 2.5 ml BTL BOTH EYES SCH (20:41)
[2017-09-03] MEDS: Timolol 0.5% OPTH.SOL* BTL BOTH EYES SCH (20:42)
[2017-09-03] MEDS: traZODone TAB* 50 MG TAB PO SCH (20:42)
[2017-09-03] MEDS ORDERED: QUEtiapine XR TAB* 50 MG PO SCH (21:00)
[2017-09-04] MEDS: Tiotropium CAP.INH* CAP.INH/18 MCG (USE ORDER SET !) INH SCH (09:34)
[2017-09-04] MEDS: Oxybutynin XL TAB* 5 MG PO SCH (09:36)
[2017-09-04] MEDS: Nicotine PATCH 14 MG/24 HR* PATCH TRANSDERM SCH (09:36)
[2017-09-04] MEDS: Omeprazole CAP* 20 MG PO SCH (09:37)
[2017-09-04] MEDS: DULoxetine DR CAP* 60 MG CAP.DR PO SCH (09:37)
[2017-09-04] MEDS: amLODIPine TAB* 5 MG PO SCH (09:37)
[2017-09-04] MEDS: Magnesium Oxide TAB* 400 MG PO SCH (09:37)
[2017-09-04] MEDS: Aspirin EC TAB* 81 MG TAB.EC PO SCH (09:37)
[2017-09-04] MEDS: Gabapentin CAP(*) 100 MG PO SCH ×3 (09:38→21:22)
[2017-09-04] MEDS: Nicotine Inhaler* 10 MG AMP INH PRN (10:42)
[2017-09-04 17:26] LABS: ABS Basophils 0.1 10^3/ul (0-0.2); ABS Eosinophils 0.2 10^3/ul (0-0.6); ABS Lymphocytes 2.5 10^3/ul (1.0-4.8); ABS Monocytes 0.6 10^3/ul (0-0.8); ABS Neutrophils 3.4 10^3/ul (1.5-7.7); ABS Nucleated RBC 0 10^3/ul; Eosinophil % 3.2 % (0-6); Hematocrit 43 % (35-47); Hemoglobin 14.5 g/dl (12.0-16.0); Lymphocyte % 37.1 % (25-47); Mean Corpuscular HGB Conc 34 g/dl (31-36); Mean Corpuscular Hemoglobin 35 pg (27-31); Mean Corpuscular Volume 104 fL (80-97); Mean Platelet Volume 9.3 um3 (7.4-10.4); Nucleated Red Blood Cells % 0.1; Platelet Count 183 10^3/ul (150-450); Red Blood Count 4.12 10^6/ul (4.0-5.4); Red Cell Distribution Width 13 % (10.5-15); White Blood Count 6.9 10^3/ul (3.5-10.8)
[2017-09-04 17:43] LABS: EGFR Non-African American 66.3 (>60)
[2017-09-04] MEDS: Atorvastatin* 20 MG TAB PO SCH (21:22)
[2017-09-04] MEDS: Divalproex DR TAB(*) 500 MG PO SCH (21:22)
[2017-09-04] MEDS: QUEtiapine XR TAB* 50 MG PO SCH (21:23)
[2017-09-04] MEDS: Latanoprost 0.005%* 2.5 ml BTL BOTH EYES SCH (21:23)
[2017-09-04] MEDS: Nicotine Patch Removal NOTE PATCH OFF SCH (21:23)
[2017-09-04] MEDS: Timolol 0.5% OPTH.SOL* BTL BOTH EYES SCH (21:23)
[2017-09-04] MEDS: Estradiol VAG CM (NF) 1 APPLIC TUBE VAGINAL SCH (21:24)
[2017-09-05] MEDS: amLODIPine TAB* 5 MG PO SCH (10:12)
[2017-09-05] MEDS: Oxybutynin XL TAB* 5 MG PO SCH (10:12)
[2017-09-05] MEDS: Aspirin EC TAB* 81 MG TAB.EC PO SCH (10:12)
[2017-09-05] MEDS: Gabapentin CAP(*) 100 MG PO SCH ×3 (10:13→21:54)
[2017-09-05] MEDS: Omeprazole CAP* 20 MG PO SCH (10:13)
[2017-09-05] MEDS: Tiotropium CAP.INH* CAP.INH/18 MCG (USE ORDER SET !) INH SCH (10:13)
[2017-09-05] MEDS: DULoxetine DR CAP* 60 MG CAP.DR PO SCH (10:14)
[2017-09-05] MEDS: Magnesium Oxide TAB* 400 MG PO SCH (10:14)
[2017-09-05] MEDS: Nicotine PATCH 14 MG/24 HR* PATCH TRANSDERM SCH (10:14)
--- NOTE | 2017-09-05 20:50 | PN ---
Subjective - Subjective Date of Service: 09/05/17 Service Type: 03675 Hosp care 15 min low complexity Subjective: Was in bed asleep but woke up easily. Then talked with pressured speech. Somewhat grandiose wit a plan to write a book. Was having mild issues with one of the peers she say but unable to identify who that person was. She wanted to continue the conversation about her plans. Denies SI, HI or psychosis. Tolerated her med adjustment well. Objective - Appearance Appearance: Obese Dysmorphic Features: No Hygiene: Mal-odorous Grooming: Disheveled - Behavior Psychomotor Activities: Abnormal-Increased Exhibits Abnormal Movement: No - Attitude and Relatedness Attitude and Relatedness: Cooperative Eye Contact: Good - Speech Quality: Pressured Latencies: Short Quantity: Appropriate - Mood Patient's Decription of Mood: "Good" - Affect Observed Affect: Euphoric Affect Consistent with: Euphoria - Thought Process Patient's Thought Process: Coherent, Loose Associations Thought Content: No Passive Wish, No Suicidal Planning, No Homicidal Ideation, No Paranoid Ideation - Sensorium Experiencing Hallucinations: No, Sensorium is Clear Type of Hallucinations: Visual: No, Auditory: No, Command: No - Level of Consciousness Level of Consciousness: Alert Orientation: Yes Intact, Yes Orientated to Time, Yes Orientated to Place, Yes Orientated to Person - Impulse Control Impulse Control: Intact - Insight and Judgement Insight and Judgement: Fair - Group Participation Particating in Group Activities: No - Medication Management Medication Management Adherence: Yes Assessment - Assessment Merits Inpatient Hospitalization: For Immediate Safety, For Stabilization, Pending Safe DC Plan Clinical Impression: Still hypomanic and will need more time on the unit. Plan - Plan Treatment Plan: Name: ZAKIYA LESTER Birthdate: 1940 [id number] Continued Medication Management: Continue Outpt Medication Medications: Current Medications Al Hydrox/Mg Hydrox/Simethicone (Maalox Plus*) 30 ml PO Q4H PRN PRN Reason: INDIGESTION Albuterol (Ventolin Hfa Inhaler*) 2 puff INH Q4H PRN PRN Reason: SOB/WHEEZING Amlodipine Besylate (Norvasc Tab*) 7.5 mg PO DAILY [facility] Last Admin: 09/05/17 10:12 Dose: 7.5 mg Aspirin (Aspirin Ec Tab*) 81 mg PO DAILY [facility] Last Admin: 09/05/17 10:12 Dose: 81 mg Atorvastatin Calcium (Lipitor*) 20 mg PO BEDTIME [facility] Last Admin: 09/04/17 21:22 Dose: 20 mg Device (Nicotine Mouth Piece*) 1 each INH .USE WITH NICOTROL PRN PRN Reason: CRAVING Last Admin: 09/02/17 16:38 Dose: 1 each Divalproex Sodium (Depakote Dr Tab(*)) 500 mg PO BEDTIME [facility] Last Admin: 09/04/17 21:22 Dose: 500 mg Duloxetine HCl (Cymbalta Cap*) 60 mg PO DAILY [facility] Last Admin: 09/05/17 10:14 Dose: 60 mg Estradiol (Estrace Vag Cm (Nf)) 1 applic VAGINAL BEDTIME [facility] Last Admin: 09/04/17 21:24 Dose: Not Given Gabapentin (Neurontin Cap(*)) 200 mg PO TID [facility] Last Admin: 09/05/17 14:02 Dose: 200 mg Haloperidol (Haldol Tab*) 2 mg PO Q4H PRN PRN Reason: agitation/psychosis Last Admin: 09/03/17 23:55 Dose: 2 mg Latanoprost (Xalatan 0.005%*) 1 drop BOTH EYES BEDTIME [facility] Last Admin: 09/04/17 21:23 Dose: Not Given Magnesium Oxide (Magox 400 Tab*) 400 mg PO DAILY [facility] Last Admin: 09/05/17 10:14 Dose: 400 mg Nicotine (Nicotine Inhaler*) 10 mg INH Q2H PRN PRN Reason: CRAVING Last Admin: 09/04/17 10:42 Dose: 10 mg Nicotine (Nicotine Patch 14 Mg/24 Hr*) 1 patch TRANSDERM DAILY [facility] Last Admin: 09/05/17 10:14 Dose: Not Given Omeprazole (Prilosec Cap*) 20 mg PO DAILY [facility] Last Admin: 09/05/17 10:13 Dose: 20 mg Oxybutynin Chloride (Ditropan Xl Tab*) 10 mg PO DAILY [facility] Last Admin: 09/05/17 10:12 Dose: 10 mg Pharmacy Profile Note (Nicotine Patch Removal Note*) 1 note PATCH OFF 2100 [facility] Last Admin: 09/04/17 21:23 Dose: Not Given Quetiapine Fumarate (Seroquel Xr Tab*) 100 mg PO DAILY@21 [facility] Last Admin: 09/04/17 21:23 Dose: 100 mg Timolol Maleate (Timoptic 0.5% Opth*) 1 drop BOTH EYES BEDTIME [facility] Last Admin: 09/04/17 21:23 Dose: Not Given Tiotropium [place] (Spiriva Cap.Inh*) 1 cap INH DAILY [facility] Last Admin: 09/05/17 10:13 Dose: 1 cap Trazodone HCl (Desyrel Tab*) 50 mg PO BEDTIME PRN PRN Reason: SLEEP - Discharge Plan Discharge Plan: Outpatient Follow Up Outpatient Program: [facility]
[2017-09-05] MEDS: Divalproex DR TAB(*) 500 MG PO SCH (21:53)
[2017-09-05] MEDS: Atorvastatin* 20 MG TAB PO SCH (21:53)
[2017-09-05] MEDS: Estradiol VAG CM (NF) 1 APPLIC TUBE VAGINAL SCH (21:54)
[2017-09-05] MEDS: Timolol 0.5% OPTH.SOL* BTL BOTH EYES SCH ×2 (21:56→22:50)
[2017-09-05] MEDS: Latanoprost 0.005%* 2.5 ml BTL BOTH EYES SCH ×2 (21:56→22:50)
[2017-09-05] MEDS: Nicotine Patch Removal NOTE PATCH OFF SCH (21:57)
[2017-09-05] MEDS: QUEtiapine XR TAB* 50 MG PO SCH (22:01)
[2017-09-06] MEDS: traZODone TAB* 50 MG TAB PO PRN (00:40)
[2017-09-06] MEDS: Magnesium Oxide TAB* 400 MG PO SCH (11:22)
[2017-09-06] MEDS: Gabapentin CAP(*) 100 MG PO SCH ×3 (11:22→20:43)
[2017-09-06] MEDS: Oxybutynin XL TAB* 5 MG PO SCH (11:22)
[2017-09-06] MEDS: Aspirin EC TAB* 81 MG TAB.EC PO SCH (11:23)
[2017-09-06] MEDS: amLODIPine TAB* 5 MG PO SCH (11:23)
[2017-09-06] MEDS: DULoxetine DR CAP* 60 MG CAP.DR PO SCH (11:24)
[2017-09-06] MEDS: Omeprazole CAP* 20 MG PO SCH (11:24)
[2017-09-06] MEDS: Tiotropium CAP.INH* CAP.INH/18 MCG (USE ORDER SET !) INH SCH (11:24)
[2017-09-06] MEDS: Nicotine PATCH 14 MG/24 HR* PATCH TRANSDERM SCH (11:25)
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
[2017-09-06] MEDS: QUEtiapine XR TAB* 50 MG PO SCH (20:42)
[2017-09-06] MEDS: Divalproex DR TAB(*) 500 MG PO SCH (20:42)
[2017-09-06] MEDS: Atorvastatin* 20 MG TAB PO SCH (20:42)
[2017-09-06] MEDS: Nicotine Patch Removal NOTE PATCH OFF SCH (20:46)
[2017-09-06] MEDS: Latanoprost 0.005%* 2.5 ml BTL BOTH EYES SCH (21:18)
[2017-09-06] MEDS: Estradiol VAG CM (NF) 1 APPLIC TUBE VAGINAL SCH (21:18)
[2017-09-06] MEDS: Timolol 0.5% OPTH.SOL* BTL BOTH EYES SCH (21:19)
[2017-09-07] MEDS: amLODIPine TAB* 5 MG PO SCH (09:33)
[2017-09-07] MEDS: Aspirin EC TAB* 81 MG TAB.EC PO SCH (09:33)
[2017-09-07] MEDS: Oxybutynin XL TAB* 5 MG PO SCH (09:33)
[2017-09-07] MEDS: Gabapentin CAP(*) 100 MG PO SCH ×3 (09:34→20:05)
[2017-09-07] MEDS: Magnesium Oxide TAB* 400 MG PO SCH (09:34)
[2017-09-07] MEDS: DULoxetine DR CAP* 60 MG CAP.DR PO SCH (09:34)
[2017-09-07] MEDS: Omeprazole CAP* 20 MG PO SCH (09:34)
[2017-09-07] MEDS: Tiotropium CAP.INH* CAP.INH/18 MCG (USE ORDER SET !) INH SCH (09:35)
[2017-09-07] MEDS: Nicotine PATCH 14 MG/24 HR* PATCH TRANSDERM SCH (09:36)
--- NOTE | 2017-09-07 11:11 | PN ---
Subjective - Subjective Date of Service: 09/07/17 Service Type: [id number] Hosp care 15 min low complexity Subjective: Bernadette remains somewhat irritable, mostly because she is eager to return to the [place] area to be near family. I checked her VPA level, which was subtherapeutic at 41, and she is agreeable with increasing the Depakote dose to 1000mg nightly. She continues to deny SI or HI and shows no evidence of agitated behavior. Objective - Appearance Appearance: Obese Dysmorphic Features: No Hygiene: Mal-odorous Grooming: Fairly Well Kept - Behavior Psychomotor Activities: Normal Exhibits Abnormal Movement: No - Attitude and Relatedness Attitude and Relatedness: Cooperative Eye Contact: Fair - Speech Quality: Unpressured Latencies: Normal Quantity: Appropriate - Mood Patient's Decription of Mood: "Irritable" - Affect Observed Affect: Fair Affect Consistent with: Euthymia - Thought Process Patient's Thought Process: Coherent Thought Content: No Passive Wish, No Suicidal Planning, No Homicidal Ideation, No Paranoid Ideation - Sensorium Experiencing Hallucinations: No, Sensorium is Clear Type of Hallucinations: Visual: No, Auditory: No, Command: No - Level of Consciousness Level of Consciousness: Alert Orientation: Yes Intact, Yes Orientated to Time, Yes Orientated to Place, Yes Orientated to Person - Impulse Control Impulse Control: Tenuous - Insight and Judgement Insight and Judgement: Fair - Group Participation Particating in Group Activities: Yes - Medication Management Medication Management Adherence: Yes Assessment - Assessment Merits Inpatient Hospitalization: Consolidate Improvements, Pending Safe DC Plan Inpatient DSM-V Dx: F25.0 Clinical Impression: 76 y.o. single, white female with a history of schizoaffective disorder, bipolar type, sent by [facility] due to assaultive and agitated behavior towards staff. Plan - Plan Treatment Plan: Name: BERNADETTE LESTER Birthdate: 1940 [id number] The patient is improving on a regimen of Depakote, duloxetine, gabapentin, quetiapine and prn trazodone. PT and OT assessments have been completed and she is pending placement in an assisted living facility somewhere near her family in [place], [place]. Since her VPA level is low (41), we will increase depakote to 1000mg PO qhs. Continued Medication Management: Different Medication Medications: Current Medications Al Hydrox/Mg Hydrox/Simethicone (Maalox Plus*) 30 ml PO Q4H PRN PRN Reason: INDIGESTION Albuterol (Ventolin Hfa Inhaler*) 2 puff INH Q4H PRN PRN Reason: SOB/WHEEZING Amlodipine Besylate (Norvasc Tab*) 7.5 mg PO DAILY [facility] Last Admin: 09/07/17 09:33 Dose: 7.5 mg Aspirin (Aspirin Ec Tab*) 81 mg PO DAILY [facility] Last Admin: 09/07/17 09:33 Dose: 81 mg Atorvastatin Calcium (Lipitor*) 20 mg PO BEDTIME [facility] Last Admin: 09/06/17 20:42 Dose: 20 mg Device (Nicotine Mouth Piece*) 1 each INH .USE WITH NICOTROL PRN PRN Reason: CRAVING Last Admin: 09/02/17 16:38 Dose: 1 each Divalproex Sodium (Depakote Dr Tab(*)) 1,000 mg PO BEDTIME [facility] Duloxetine HCl (Cymbalta Cap*) 60 mg PO DAILY [facility] Last Admin: 09/07/17 09:34 Dose: 60 mg Estradiol (Estrace Vag Cm (Nf)) 1 applic VAGINAL BEDTIME [facility] Last Admin: 09/06/17 21:18 Dose: Not Given Gabapentin (Neurontin Cap(*)) 200 mg PO TID [facility] Last Admin: 09/07/17 09:34 Dose: 200 mg Haloperidol (Haldol Tab*) 2 mg PO Q4H PRN PRN Reason: agitation/psychosis Last Admin: 09/03/17 23:55 Dose: 2 mg Latanoprost (Xalatan 0.005%*) 1 drop BOTH EYES BEDTIME [facility] Last Admin: 09/06/17 21:18 Dose: Not Given Magnesium Oxide (Magox 400 Tab*) 400 mg PO DAILY [facility] Last Admin: 09/07/17 09:34 Dose: 400 mg Nicotine (Nicotine Inhaler*) 10 mg INH Q2H PRN PRN Reason: CRAVING Last Admin: 09/04/17 10:42 Dose: 10 mg Nicotine (Nicotine Patch 14 Mg/24 Hr*) 1 patch TRANSDERM DAILY [facility] Last Admin: 09/07/17 09:36 Dose: Not Given Omeprazole (Prilosec Cap*) 20 mg PO DAILY [facility] Last Admin: 04/17/18 09:34 Dose: 20 mg Oxybutynin Chloride (Ditropan Xl Tab*) 10 mg PO DAILY [facility] Last Admin: 09/07/17 09:33 Dose: 10 mg Pharmacy Profile Note (Nicotine Patch Removal Note*) 1 note PATCH OFF 2100 [facility] Last Admin: 09/06/17 20:46 Dose: 1 note Quetiapine Fumarate (Seroquel Xr Tab*) 100 mg PO DAILY@21 [facility] Last Admin: 09/06/17 20:42 Dose: 100 mg Timolol Maleate (Timoptic 0.5% Opth*) 1 drop BOTH EYES BEDTIME [facility] Last Admin: 09/06/17 21:19 Dose: Not Given Tiotropium [place] (Spiriva Cap.Inh*) 1 cap INH DAILY [facility] Last Admin: 09/07/17 09:35 Dose: 1 cap Trazodone HCl (Desyrel Tab*) 50 mg PO BEDTIME PRN PRN Reason: SLEEP Last Admin: 09/06/17 00:40 Dose: 50 mg - Discharge Plan Discharge Plan: Outpatient Follow Up Lab Results - Lab Results Lab Results: 09/04/17 09/04/17 17:14 17:14 WBC 6.9 RBC 4.12 Hgb 14.5 Hct 43 MCV 104 H MCH 35 H MCHC 34 RDW 13 Plt Count 183 MPV 9.3 Neut % (Auto) 49.4 Lymph % (Auto) 37.1 [place] % (Auto) 9.3 H Eos % (Auto) 3.2 Baso % (Auto) 1.0 Absolute Neuts (auto) 3.4 Absolute Lymphs (auto) 2.5 Absolute Monos (auto) 0.6 Absolute Eos (auto) 0.2 Absolute Basos (auto) 0.1 Absolute Nucleated RBC 0 Nucleated RBC % 0.1 Sodium 137 L Potassium 5.2 H Chloride 100 L Carbon Dioxide 34 H Anion Gap 3 BUN 25 H Creatinine 0.84 Est GFR ( Amer) 85.2 Est GFR (Non-Af Amer) 66.3 BUN/Creatinine Ratio 29.8 H Glucose 153 H Calcium 9.4 Total Bilirubin 0.30 AST 21 ALT 18 Alkaline Phosphatase 105 H Total Protein 6.7 Albumin 3.8 Globulin 2.9 Albumin/Globulin Ratio 1.3 Valproic Acid 41.0 L
[2017-09-07] MEDS: Divalproex DR TAB(*) 500 MG PO SCH (20:04)
[2017-09-07] MEDS: QUEtiapine XR TAB* 50 MG PO SCH (20:05)
[2017-09-07] MEDS: Atorvastatin* 20 MG TAB PO SCH (20:05)
[2017-09-07] MEDS: Estradiol VAG CM (NF) 1 APPLIC TUBE VAGINAL SCH (20:06)
[2017-09-07] MEDS: Latanoprost 0.005%* 2.5 ml BTL BOTH EYES SCH (20:06)
[2017-09-07] MEDS: Timolol 0.5% OPTH.SOL* BTL BOTH EYES SCH (20:07)
[2017-09-07] MEDS: Nicotine Patch Removal NOTE PATCH OFF SCH (20:07)
[2017-09-08] MEDS: Gabapentin CAP(*) 100 MG PO SCH ×3 (09:27→20:02)
[2017-09-08] MEDS: Oxybutynin XL TAB* 5 MG PO SCH (09:27)
[2017-09-08] MEDS: DULoxetine DR CAP* 60 MG CAP.DR PO SCH (09:27)
[2017-09-08] MEDS: amLODIPine TAB* 5 MG PO SCH (09:28)
[2017-09-08] MEDS: Tiotropium CAP.INH* CAP.INH/18 MCG (USE ORDER SET !) INH SCH (09:28)
[2017-09-08] MEDS: Omeprazole CAP* 20 MG PO SCH (09:28)
[2017-09-08] MEDS: Magnesium Oxide TAB* 400 MG PO SCH (09:28)
[2017-09-08] MEDS: Aspirin EC TAB* 81 MG TAB.EC PO SCH (09:28)
[2017-09-08] MEDS: Nicotine PATCH 14 MG/24 HR* PATCH TRANSDERM SCH (09:29)
--- NOTE | 2017-09-08 12:21 | PN ---
Subjective - Subjective Date of Service: 09/08/17 Service Type: [id number] Hosp care 15 min low complexity Subjective: Bernadette remains irritable, but in control. She is frustrated with the process of finding placement for her in her preferred community of [place], [place]. "I'm not going anywhere I can't smoke." She declines the offer of multiple different forms of nicotine replacement. She denies SI or HI. Objective - Appearance Appearance: Obese Dysmorphic Features: No Hygiene: Normal Grooming: Fairly Well Kept - Behavior Psychomotor Activities: Normal Exhibits Abnormal Movement: No - Attitude and Relatedness Attitude and Relatedness: Irritable Eye Contact: Fair - Speech Quality: Unpressured Latencies: Normal Quantity: Appropriate - Mood Patient's Decription of Mood: "Irritable" - Affect Observed Affect: Fair Affect Consistent with: Euthymia - Thought Process Patient's Thought Process: Coherent Thought Content: No Passive Wish, No Suicidal Planning, No Homicidal Ideation, No Paranoid Ideation - Sensorium Experiencing Hallucinations: No, Sensorium is Clear Type of Hallucinations: Visual: No, Auditory: No, Command: No - Level of Consciousness Level of Consciousness: Alert Orientation: Yes Intact, Yes Orientated to Time, Yes Orientated to Place, Yes Orientated to Person - Impulse Control Impulse Control: Tenuous - Insight and Judgement Insight and Judgement: Fair - Group Participation Particating in Group Activities: No - Medication Management Medication Management Adherence: Yes Assessment - Assessment Merits Inpatient Hospitalization: Consolidate Improvements, Pending Safe DC Plan Inpatient DSM-V Dx: F25.0 Clinical Impression: 76 y.o. single, white female with a history of schizoaffective disorder, bipolar type, sent by [facility] due to assaultive and agitated behavior towards staff. Plan - Plan Treatment Plan: Name: BERNADETTE LESTER Birthdate: 1940 [id number] The patient is improving on a regimen of Depakote, duloxetine, gabapentin, quetiapine and prn trazodone. PT and OT assessments have been completed and she is pending placement in an assisted living facility somewhere near her family in [place], [place]. Since her VPA level is low (41), we have increased her depakote to 1000mg PO qhs. Continued Medication Management: Different Medication Medications: Current Medications Al Hydrox/Mg Hydrox/Simethicone (Maalox Plus*) 30 ml PO Q4H PRN PRN Reason: INDIGESTION Albuterol (Ventolin Hfa Inhaler*) 2 puff INH Q4H PRN PRN Reason: SOB/WHEEZING Amlodipine Besylate (Norvasc Tab*) 7.5 mg PO DAILY [facility] Last Admin: 09/08/17 09:28 Dose: 7.5 mg Aspirin (Aspirin Ec Tab*) 81 mg PO DAILY [facility] Last Admin: 09/08/17 09:28 Dose: 81 mg Atorvastatin Calcium (Lipitor*) 20 mg PO BEDTIME [facility] Last Admin: 09/07/17 20:05 Dose: 20 mg Device (Nicotine Mouth Piece*) 1 each INH .USE WITH NICOTROL PRN PRN Reason: CRAVING Last Admin: 09/02/17 16:38 Dose: 1 each Divalproex Sodium (Depakote Dr Tab(*)) 1,000 mg PO BEDTIME [facility] Last Admin: 09/07/17 20:04 Dose: 1,000 mg Duloxetine HCl (Cymbalta Cap*) 60 mg PO DAILY [facility] Last Admin: 09/08/17 09:27 Dose: 60 mg Estradiol (Estrace Vag Cm (Nf)) 1 applic VAGINAL BEDTIME [facility] Last Admin: 09/07/17 20:06 Dose: Not Given Gabapentin (Neurontin Cap(*)) 200 mg PO TID [facility] Last Admin: 09/08/17 09:27 Dose: 200 mg Haloperidol (Haldol Tab*) 2 mg PO Q4H PRN PRN Reason: agitation/psychosis Last Admin: 09/03/17 23:55 Dose: 2 mg Latanoprost (Xalatan 0.005%*) 1 drop BOTH EYES BEDTIME [facility] Last Admin: 09/07/17 20:06 Dose: Not Given Magnesium Oxide (Magox 400 Tab*) 400 mg PO DAILY [facility] Last Admin: 09/08/17 09:28 Dose: 400 mg Nicotine (Nicotine Inhaler*) 10 mg INH Q2H PRN PRN Reason: CRAVING Last Admin: 09/04/17 10:42 Dose: 10 mg Nicotine (Nicotine Patch 14 Mg/24 Hr*) 1 patch TRANSDERM DAILY [facility] Last Admin: 09/08/17 09:29 Dose: Not Given Omeprazole (Prilosec Cap*) 20 mg PO DAILY [facility] Last Admin: 09/08/17 09:28 Dose: 20 mg Oxybutynin Chloride (Ditropan Xl Tab*) 10 mg PO DAILY [facility] Last Admin: 09/08/17 09:27 Dose: 10 mg Pharmacy Profile Note (Nicotine Patch Removal Note*) 1 note PATCH OFF 2100 [facility] Last Admin: 09/07/17 20:07 Dose: Not Given Quetiapine Fumarate (Seroquel Xr Tab*) 100 mg PO DAILY@21 [facility] Last Admin: 09/07/17 20:05 Dose: 100 mg Timolol Maleate (Timoptic 0.5% Opth*) 1 drop BOTH EYES BEDTIME [facility] Last Admin: 09/07/17 20:07 Dose: Not Given Tiotropium [place] (Spiriva Cap.Inh*) 1 cap INH DAILY [facility] Last Admin: 09/08/17 09:28 Dose: 1 cap Trazodone HCl (Desyrel Tab*) 50 mg PO BEDTIME PRN PRN Reason: SLEEP Last Admin: 09/06/17 00:40 Dose: 50 mg - Discharge Plan Discharge Plan: Inpatient Hospitalization
[2017-09-08] MEDS: Divalproex DR TAB(*) 500 MG PO SCH (20:01)
[2017-09-08] MEDS: QUEtiapine XR TAB* 50 MG PO SCH (20:02)
[2017-09-08] MEDS: Atorvastatin* 20 MG TAB PO SCH (20:03)
[2017-09-08] MEDS: Latanoprost 0.005%* 2.5 ml BTL BOTH EYES SCH (21:31)
[2017-09-08] MEDS: Estradiol VAG CM (NF) 1 APPLIC TUBE VAGINAL SCH (21:31)
[2017-09-08] MEDS: Timolol 0.5% OPTH.SOL* BTL BOTH EYES SCH (21:32)
[2017-09-08] MEDS: Nicotine Patch Removal NOTE PATCH OFF SCH (21:32)
[2017-09-09] MEDS: Gabapentin CAP(*) 100 MG PO SCH ×3 (10:29→20:09)
[2017-09-09] MEDS: Oxybutynin XL TAB* 5 MG PO SCH (10:29)
[2017-09-09] MEDS: Omeprazole CAP* 20 MG PO SCH (10:29)
[2017-09-09] MEDS: amLODIPine TAB* 5 MG PO SCH (10:30)
[2017-09-09] MEDS: Magnesium Oxide TAB* 400 MG PO SCH (10:30)
[2017-09-09] MEDS: DULoxetine DR CAP* 60 MG CAP.DR PO SCH (10:30)
[2017-09-09] MEDS: Aspirin EC TAB* 81 MG TAB.EC PO SCH (10:30)
[2017-09-09] MEDS: Tiotropium CAP.INH* CAP.INH/18 MCG (USE ORDER SET !) INH SCH (10:32)
[2017-09-09] MEDS: Nicotine PATCH 14 MG/24 HR* PATCH TRANSDERM SCH (10:33)
[2017-09-09] MEDS: Atorvastatin* 20 MG TAB PO SCH (20:09)
[2017-09-09] MEDS: Divalproex DR TAB(*) 500 MG PO SCH (20:09)
[2017-09-09] MEDS: Latanoprost 0.005%* 2.5 ml BTL BOTH EYES SCH (20:11)
[2017-09-09] MEDS: Nicotine Patch Removal NOTE PATCH OFF SCH (20:11)
[2017-09-09] MEDS: Timolol 0.5% OPTH.SOL* BTL BOTH EYES SCH (20:12)
[2017-09-09] MEDS: QUEtiapine XR TAB* 50 MG PO SCH (20:13)
[2017-09-10] MEDS: traZODone TAB* 50 MG TAB PO PRN (00:25)
[2017-09-10] MEDS: amLODIPine TAB* 5 MG PO SCH (09:41)
[2017-09-10] MEDS: Gabapentin CAP(*) 100 MG PO SCH ×3 (09:42→20:55)
[2017-09-10] MEDS: DULoxetine DR CAP* 60 MG CAP.DR PO SCH (09:42)
[2017-09-10] MEDS: Aspirin EC TAB* 81 MG TAB.EC PO SCH (09:42)
[2017-09-10] MEDS: Magnesium Oxide TAB* 400 MG PO SCH (09:43)
[2017-09-10] MEDS: Omeprazole CAP* 20 MG PO SCH (09:43)
[2017-09-10] MEDS: Nicotine PATCH 14 MG/24 HR* PATCH TRANSDERM SCH (09:44)
[2017-09-10] MEDS: Tiotropium CAP.INH* CAP.INH/18 MCG (USE ORDER SET !) INH SCH (09:44)
[2017-09-10] MEDS: Oxybutynin XL TAB* 5 MG PO SCH (09:44)
--- NOTE | 2017-09-10 14:03 | PN ---
Subjective - Subjective Date of Service: 09/10/17 Service Type: 10592 Hosp care 15 min low complexity Subjective: Bernadette has no new complaints today and denies SI or HI. She remains fixated on leaving to a new housing arrangement in [place], [place]. Objective - Appearance Appearance: Obese Dysmorphic Features: No Hygiene: Normal Grooming: Fairly Well Kept - Behavior Psychomotor Activities: Normal Exhibits Abnormal Movement: No - Attitude and Relatedness Attitude and Relatedness: Cooperative Eye Contact: Fair - Speech Quality: Unpressured Latencies: Normal Quantity: Appropriate - Mood Patient's Decription of Mood: "Okay" - Affect Observed Affect: Fair Affect Consistent with: Euthymia - Thought Process Patient's Thought Process: Coherent Thought Content: No Passive Wish, No Suicidal Planning, No Homicidal Ideation, No Paranoid Ideation - Sensorium Experiencing Hallucinations: No, Sensorium is Clear Type of Hallucinations: Visual: No, Auditory: No, Command: No - Level of Consciousness Level of Consciousness: Alert Orientation: Yes Intact, Yes Orientated to Time, Yes Orientated to Place, Yes Orientated to Person - Impulse Control Impulse Control: Tenuous - Insight and Judgement Insight and Judgement: Fair - Group Participation Particating in Group Activities: No - Medication Management Medication Management Adherence: Yes Assessment - Assessment Merits Inpatient Hospitalization: Consolidate Improvements, Pending Safe DC Plan Inpatient DSM-V Dx: F25.0 Clinical Impression: 76 y.o. single, white female with a history of schizoaffective disorder, bipolar type, sent by [facility] due to assaultive and agitated behavior towards staff. Plan - Plan Treatment Plan: Name: BERNADETTE LESTER Birthdate: 1940 [id number] The patient is improving on a regimen of Depakote, duloxetine, gabapentin, quetiapine and prn trazodone. PT and OT assessments have been completed and she is pending placement in an assisted living facility somewhere near her family in [place], [place]. Since her VPA level is low (41), we have increased her depakote to 1000mg PO qhs. Continued Medication Management: Different Medication Medications: Current Medications Al Hydrox/Mg Hydrox/Simethicone (Maalox Plus*) 30 ml PO Q4H PRN PRN Reason: INDIGESTION Albuterol (Ventolin Hfa Inhaler*) 2 puff INH Q4H PRN PRN Reason: SOB/WHEEZING Amlodipine Besylate (Norvasc Tab*) 7.5 mg PO DAILY [facility] Last Admin: 09/10/17 09:41 Dose: 7.5 mg Aspirin (Aspirin Ec Tab*) 81 mg PO DAILY [facility] Last Admin: 09/10/17 09:42 Dose: 81 mg Atorvastatin Calcium (Lipitor*) 20 mg PO BEDTIME [facility] Last Admin: 09/09/17 20:09 Dose: 20 mg Device (Nicotine Mouth Piece*) 1 each INH .USE WITH NICOTROL PRN PRN Reason: CRAVING Last Admin: 09/02/17 16:38 Dose: 1 each Divalproex Sodium (Depakote Dr Tab(*)) 1,000 mg PO BEDTIME [facility] Last Admin: 09/09/17 20:09 Dose: 1,000 mg Duloxetine HCl (Cymbalta Cap*) 60 mg PO DAILY [facility] Last Admin: 09/10/17 09:42 Dose: 60 mg Gabapentin (Neurontin Cap(*)) 200 mg PO TID [facility] Last Admin: 09/10/17 13:52 Dose: 200 mg Haloperidol (Haldol Tab*) 2 mg PO Q4H PRN PRN Reason: agitation/psychosis Last Admin: 09/03/17 23:55 Dose: 2 mg Latanoprost (Xalatan 0.005%*) 1 drop BOTH EYES BEDTIME [facility] Last Admin: 09/09/17 20:11 Dose: Not Given Magnesium Oxide (Magox 400 Tab*) 400 mg PO DAILY [facility] Last Admin: 09/10/17 09:43 Dose: 400 mg Nicotine (Nicotine Inhaler*) 10 mg INH Q2H PRN PRN Reason: CRAVING Last Admin: 09/04/17 10:42 Dose: 10 mg Nicotine (Nicotine Patch 14 Mg/24 Hr*) 1 patch TRANSDERM DAILY [facility] Last Admin: 09/10/17 09:44 Dose: Not Given Omeprazole (Prilosec Cap*) 20 mg PO DAILY [facility] Last Admin: 09/10/17 09:43 Dose: 20 mg Oxybutynin Chloride (Ditropan Xl Tab*) 10 mg PO DAILY [facility] Last Admin: 09/10/17 09:44 Dose: 10 mg Pharmacy Profile Note (Nicotine Patch Removal Note*) 1 note PATCH OFF 2100 [facility] Last Admin: 09/09/17 20:11 Dose: Not Given Quetiapine Fumarate (Seroquel Xr Tab*) 100 mg PO DAILY@21 [facility] Last Admin: 09/09/17 20:13 Dose: 100 mg Timolol Maleate (Timoptic 0.5% Opth*) 1 drop BOTH EYES BEDTIME [facility] Last Admin: 09/09/17 20:12 Dose: Not Given Tiotropium [place] (Spiriva Cap.Inh*) 1 cap INH DAILY [facility] Last Admin: 09/10/17 09:44 Dose: 1 cap Trazodone HCl (Desyrel Tab*) 50 mg PO BEDTIME PRN PRN Reason: SLEEP Last Admin: 09/10/17 00:25 Dose: 50 mg - Discharge Plan Discharge Plan: Inpatient Hospitalization
[2017-09-10] MEDS: Divalproex DR TAB(*) 500 MG PO SCH (20:55)
[2017-09-10] MEDS: Atorvastatin* 20 MG TAB PO SCH (20:55)
[2017-09-10] MEDS: Latanoprost 0.005%* 2.5 ml BTL BOTH EYES SCH (20:56)
[2017-09-10] MEDS: QUEtiapine XR TAB* 50 MG PO SCH (20:57)
[2017-09-10] MEDS: Timolol 0.5% OPTH.SOL* BTL BOTH EYES SCH (20:58)
[2017-09-10] MEDS: Nicotine Patch Removal NOTE PATCH OFF SCH (23:30)
[2017-09-11] MEDS: traZODone TAB* 50 MG TAB PO PRN
[2017-09-11] MEDS: amLODIPine TAB* 5 MG PO SCH (10:30)
[2017-09-11] MEDS: DULoxetine DR CAP* 60 MG CAP.DR PO SCH (10:30)
[2017-09-11] MEDS: Gabapentin CAP(*) 100 MG PO SCH ×3 (10:31→20:27)
[2017-09-11] MEDS: Aspirin EC TAB* 81 MG TAB.EC PO SCH (10:31)
[2017-09-11] MEDS: Magnesium Oxide TAB* 400 MG PO SCH (10:31)
[2017-09-11] MEDS: Omeprazole CAP* 20 MG PO SCH (10:32)
[2017-09-11] MEDS: Tiotropium CAP.INH* CAP.INH/18 MCG (USE ORDER SET !) INH SCH (10:33)
[2017-09-11] MEDS: Oxybutynin XL TAB* 5 MG PO SCH (10:33)
[2017-09-11] MEDS: Nicotine PATCH 14 MG/24 HR* PATCH TRANSDERM SCH (10:35)
[2017-09-11] MEDS: Atorvastatin* 20 MG TAB PO SCH (20:28)
[2017-09-11] MEDS: Timolol 0.5% OPTH.SOL* BTL BOTH EYES SCH (20:28)
[2017-09-11] MEDS: Divalproex DR TAB(*) 500 MG PO SCH (20:28)
[2017-09-11] MEDS: Latanoprost 0.005%* 2.5 ml BTL BOTH EYES SCH (20:29)
[2017-09-11] MEDS: Nicotine Patch Removal NOTE PATCH OFF SCH (20:29)
[2017-09-11] MEDS: QUEtiapine XR TAB* 50 MG PO SCH (20:30)
[2017-09-12] MEDS: Oxybutynin XL TAB* 5 MG PO SCH (10:24)
[2017-09-12] MEDS: amLODIPine TAB* 5 MG PO SCH (10:24)
[2017-09-12] MEDS: Gabapentin CAP(*) 100 MG PO SCH ×3 (10:25→20:51)
[2017-09-12] MEDS: Omeprazole CAP* 20 MG PO SCH (10:26)
[2017-09-12] MEDS: Magnesium Oxide TAB* 400 MG PO SCH (10:26)
[2017-09-12] MEDS: Aspirin EC TAB* 81 MG TAB.EC PO SCH (10:26)
[2017-09-12] MEDS: DULoxetine DR CAP* 60 MG CAP.DR PO SCH (10:26)
[2017-09-12] MEDS: Nicotine PATCH 14 MG/24 HR* PATCH TRANSDERM SCH (10:27)
[2017-09-12] MEDS: Tiotropium CAP.INH* CAP.INH/18 MCG (USE ORDER SET !) INH SCH (10:28)
[2017-09-12 14:57] LABS: Urine Appearance Clear; Urine Blood Negative (Negative); Urine Color Yellow; Urine Ketones Trace (Negative); Urine Protein Negative (Negative); Urine Urobilinogen Negative (Negative)
[2017-09-12] MEDS: Divalproex DR TAB(*) 500 MG PO SCH (20:51)
[2017-09-12] MEDS: Atorvastatin* 20 MG TAB PO SCH (20:51)
[2017-09-12] MEDS: traZODone TAB* 50 MG TAB PO PRN (20:52)
[2017-09-12] MEDS: QUEtiapine XR TAB* 50 MG PO SCH (20:54)
[2017-09-12] MEDS: Latanoprost 0.005%* 2.5 ml BTL BOTH EYES SCH (20:56)
[2017-09-12] MEDS: Timolol 0.5% OPTH.SOL* BTL BOTH EYES SCH (20:57)
[2017-09-12] MEDS: Nicotine Patch Removal NOTE PATCH OFF SCH (20:57)
[2017-09-12] MEDS: Ciprofloxacin TAB* 500 MG PO SCH (22:52)
[2017-09-12] MEDS: Al Hydrox/Mg Hydrox/Simet LIQ* 30 ML UDC PO PRN (22:52)
[2017-09-12] MEDS: Phenazopyridine TAB* 100 MG PO PRN (22:52)
--- NOTE | 2017-09-13 10:09 | PN ---
Subjective - Subjective Subjective: Psychiatric Attending Progress note: Met with patient for 25 minute interview today. She tells me that she has lower back pain which is chronic. It was reported by nursing that she was complaining of urinary frequency and dysuria yesterday. patient denies today that she is having burning either today or yesterday. she also reports that she has chronic urinary frequency. urine culture taken last night prior to starting antibiotics was negative for growth. MSE: patient was well related, calm, without agitation or slowing speech was normal rate and volume. not pressured. thought process was goal directed. thought content showed no evidence of delusions, hallucinations, paranoia or thought disorder today. alert and oriented to month, year, person and place. patient remembered my name after having not seen me in 10 full days. insight and judgment improved since seeing her 10 days ago. mood euthymic affect full range today. Impression: schizoaffective bipolar type current unspecified Plan: d/c ciprofloxacin and pyridium as c and s is negative. continue psych. meds unchanged VPA level in AM awaiting placement Assessment - Assessment Inpatient DSM-V Dx: F25.0 Plan - Plan Treatment Plan: Name: ZAKIYA LESTER Birthdate: 1940 [id number] Medications: Current Medications Al Hydrox/Mg Hydrox/Simethicone (Maalox Plus*) 30 ml PO Q4H PRN PRN Reason: INDIGESTION Last Admin: 09/12/17 22:52 Dose: 30 ml Albuterol (Ventolin Hfa Inhaler*) 2 puff INH Q4H PRN PRN Reason: SOB/WHEEZING Amlodipine Besylate (Norvasc Tab*) 7.5 mg PO DAILY [facility] Last Admin: 09/13/17 10:49 Dose: 7.5 mg Aspirin (Aspirin Ec Tab*) 81 mg PO DAILY [facility] Last Admin: 09/13/17 10:50 Dose: 81 mg Atorvastatin Calcium (Lipitor*) 20 mg PO BEDTIME [facility] Last Admin: 09/12/17 20:51 Dose: 20 mg Device (Nicotine Mouth Piece*) 1 each INH .USE WITH NICOTROL PRN PRN Reason: CRAVING Last Admin: 09/02/17 16:38 Dose: 1 each Divalproex Sodium (Depakote Dr Tab(*)) 1,000 mg PO BEDTIME [facility] Last Admin: 09/12/17 20:51 Dose: 1,000 mg Duloxetine HCl (Cymbalta Cap*) 60 mg PO DAILY [facility] Last Admin: 09/13/17 10:50 Dose: 60 mg Gabapentin (Neurontin Cap(*)) 200 mg PO TID [facility] Last Admin: 09/13/17 14:31 Dose: 200 mg Haloperidol (Haldol Tab*) 2 mg PO Q4H PRN PRN Reason: agitation/psychosis Last Admin: 09/03/17 23:55 Dose: 2 mg Latanoprost (Xalatan 0.005%*) 1 drop BOTH EYES BEDTIME [facility] Last Admin: 09/12/17 20:56 Dose: Not Given Magnesium Oxide (Magox 400 Tab*) 400 mg PO DAILY [facility] Last Admin: 09/13/17 10:50 Dose: 400 mg Nicotine (Nicotine Inhaler*) 10 mg INH Q2H PRN PRN Reason: CRAVING Last Admin: 09/04/17 10:42 Dose: 10 mg Nicotine (Nicotine Patch 14 Mg/24 Hr*) 1 patch TRANSDERM DAILY [facility] Last Admin: 09/13/17 10:48 Dose: Not Given Omeprazole (Prilosec Cap*) 20 mg PO DAILY [facility] Last Admin: 09/13/17 10:48 Dose: 20 mg Oxybutynin Chloride (Ditropan Xl Tab*) 10 mg PO DAILY [facility] Last Admin: 09/13/17 10:58 Dose: 10 mg Pharmacy Profile Note (Nicotine Patch Removal Note*) 1 note PATCH OFF 2100 [facility] Last Admin: 09/12/17 20:57 Dose: Not Given Quetiapine Fumarate (Seroquel Xr Tab*) 100 mg PO DAILY@21 [facility] Last Admin: 09/12/17 20:54 Dose: 100 mg Timolol Maleate (Timoptic 0.5% Opth*) 1 drop BOTH EYES BEDTIME [facility] Last Admin: 09/12/17 20:57 Dose: Not Given Tiotropium [place] (Spiriva Cap.Inh*) 1 cap INH DAILY [facility] Last Admin: 09/13/17 10:37 Dose: 1 cap Trazodone HCl (Desyrel Tab*) 50 mg PO BEDTIME PRN PRN Reason: SLEEP Last Admin: 09/12/17 20:52 Dose: 50 mg
[2017-09-13] MEDS: Tiotropium CAP.INH* CAP.INH/18 MCG (USE ORDER SET !) INH SCH (10:37)
[2017-09-13] MEDS: Gabapentin CAP(*) 100 MG PO SCH ×3 (10:47→20:35)
[2017-09-13] MEDS: Ciprofloxacin TAB* 500 MG PO SCH (10:48)
[2017-09-13] MEDS: Nicotine PATCH 14 MG/24 HR* PATCH TRANSDERM SCH (10:48)
[2017-09-13] MEDS: Omeprazole CAP* 20 MG PO SCH (10:48)
[2017-09-13] MEDS: amLODIPine TAB* 5 MG PO SCH (10:49)
[2017-09-13] MEDS: Magnesium Oxide TAB* 400 MG PO SCH (10:50)
[2017-09-13] MEDS: DULoxetine DR CAP* 60 MG CAP.DR PO SCH (10:50)
[2017-09-13] MEDS: Aspirin EC TAB* 81 MG TAB.EC PO SCH (10:50)
[2017-09-13] MEDS: Oxybutynin XL TAB* 5 MG PO SCH (10:58)
[2017-09-13] MEDS: Phenazopyridine TAB* 100 MG PO PRN (17:12)
[2017-09-13] MEDS: Atorvastatin* 20 MG TAB PO SCH (20:35)
[2017-09-13] MEDS: QUEtiapine XR TAB* 50 MG PO SCH (20:36)
[2017-09-13] MEDS: Divalproex DR TAB(*) 500 MG PO SCH (20:36)
[2017-09-13] MEDS: Latanoprost 0.005%* 2.5 ml BTL BOTH EYES SCH (22:13)
[2017-09-13] MEDS: Nicotine Patch Removal NOTE PATCH OFF SCH (22:13)
[2017-09-13] MEDS: Timolol 0.5% OPTH.SOL* BTL BOTH EYES SCH (22:13)
[2017-09-14] MEDS: Omeprazole CAP* 20 MG PO SCH (09:48)
[2017-09-14] MEDS: Oxybutynin XL TAB* 5 MG PO SCH (09:48)
[2017-09-14] MEDS: Magnesium Oxide TAB* 400 MG PO SCH (09:49)
[2017-09-14] MEDS: amLODIPine TAB* 5 MG PO SCH (09:49)
[2017-09-14] MEDS: DULoxetine DR CAP* 60 MG CAP.DR PO SCH (09:49)
[2017-09-14] MEDS: Gabapentin CAP(*) 100 MG PO SCH ×3 (09:49→20:54)
[2017-09-14] MEDS: Tiotropium CAP.INH* CAP.INH/18 MCG (USE ORDER SET !) INH SCH (09:50)
[2017-09-14] MEDS: Aspirin EC TAB* 81 MG TAB.EC PO SCH (09:50)
[2017-09-14] MEDS: Nicotine PATCH 14 MG/24 HR* PATCH TRANSDERM SCH (09:50)
[2017-09-14] MEDS ORDERED: Fluconazole 100 MG TAB* TAB PO ONE (17:00)
[2017-09-14] MEDS: LACTASE ENZYME 3000 UNIT PO SCH (18:24)
[2017-09-14] MEDS: Nystatin CREAM* 15 GM TUBE TOPICAL PRN (18:26)
[2017-09-14] MEDS: Atorvastatin* 20 MG TAB PO SCH (20:54)
[2017-09-14] MEDS: QUEtiapine XR TAB* 50 MG PO SCH (20:55)
[2017-09-14] MEDS: Divalproex DR TAB(*) 500 MG PO SCH (20:55)
[2017-09-14] MEDS: Timolol 0.5% OPTH.SOL* BTL BOTH EYES SCH (21:01)
[2017-09-14] MEDS: Latanoprost 0.005%* 2.5 ml BTL BOTH EYES SCH (21:01)
[2017-09-14] MEDS: Nicotine Patch Removal NOTE PATCH OFF SCH (21:02)
[2017-09-15] MEDS: traZODone TAB* 50 MG TAB PO PRN ×2 (00:45→20:41)
[2017-09-15] MEDS: Tiotropium CAP.INH* CAP.INH/18 MCG (USE ORDER SET !) INH SCH (08:19)
[2017-09-15] MEDS: Nicotine PATCH 14 MG/24 HR* PATCH TRANSDERM SCH (09:50)
[2017-09-15] MEDS: Omeprazole CAP* 20 MG PO SCH (09:50)
[2017-09-15] MEDS: Aspirin EC TAB* 81 MG TAB.EC PO SCH (09:50)
[2017-09-15] MEDS: Magnesium Oxide TAB* 400 MG PO SCH (09:50)
[2017-09-15] MEDS: Oxybutynin XL TAB* 5 MG PO SCH (09:50)
[2017-09-15] MEDS: DULoxetine DR CAP* 60 MG CAP.DR PO SCH (09:50)
[2017-09-15] MEDS: amLODIPine TAB* 5 MG PO SCH (09:50)
[2017-09-15] MEDS: LACTASE ENZYME 3000 UNIT PO SCH ×3 (09:50→16:41)
[2017-09-15] MEDS: Gabapentin CAP(*) 100 MG PO SCH ×3 (09:51→20:38)
--- NOTE | 2017-09-15 10:07 | PN ---
Subjective - Subjective Subjective: Psychiatric Attending Progress Note: appears to more tired during the day. attending fewer groups and more seclusive. 02 saturation was in 70 to 80 range while napping earlier today but when awoken and fully alert sitting up, 02 sat went up to 95 %. patient continues to be intermittently irritable, expressing that she is inpatient to be discharged to community placement closer to her family. Objective - Appearance Appearance: Obese Dysmorphic Features: No Hygiene: Normal Grooming: Fairly Well Kept - Behavior Psychomotor Activities: Normal Exhibits Abnormal Movement: No - Attitude and Relatedness Attitude and Relatedness: Needy Eye Contact: Fair - Speech Quality: Unpressured Latencies: Normal Quantity: Copious - Mood Patient's Decription of Mood: "Irritable" - Affect Observed Affect: Labile Affect Consistent with: Euphoria - Thought Process Patient's Thought Process: Circumstantial, Over Inclusive Thought Content: No Passive Wish, No Suicidal Planning, No Homicidal Ideation, No Paranoid Ideation - not presently - Sensorium Experiencing Hallucinations: Yes - intermittently can be seen responding to internal stimuli (not daily) Type of Hallucinations: Visual: No, Auditory: Yes, Command: No - Level of Consciousness Level of Consciousness: Alert Orientation: Yes Orientated to Time, Yes Orientated to Place, Yes Orientated to Person, No Intact - oriented to month, year, person and place only - Impulse Control Impulse Control: Impaired - Insight and Judgement Insight and Judgement: Fair - Group Participation Particating in Group Activities: Yes - Medication Management Medication Management Adherence: Yes Assessment - Assessment Clinical Impression: schizoaffective disorder bipolar type. current episode unspecified patient may be experiencing increased sedation possibly related to increase in depakote DR to 1000 mg recently Plan - Plan Treatment Plan: will d/c Depakote DR 1000 mg qhs Start Depakote ER 750 mg QHS Get VPA tonight prior to evening dose all other meds unchanged. awaiting placement
[2017-09-15] MEDS: Nystatin CREAM* 15 GM TUBE TOPICAL PRN ×2 (16:44→21:12)
[2017-09-15] MEDS: Atorvastatin* 20 MG TAB PO SCH (20:37)
[2017-09-15] MEDS: Divalproex ER TAB(*) 250 MG PO SCH (20:37)
[2017-09-15] MEDS: Nicotine Patch Removal NOTE PATCH OFF SCH (21:02)
[2017-09-15] MEDS: Latanoprost 0.005%* 2.5 ml BTL BOTH EYES SCH (21:02)
[2017-09-15] MEDS: Timolol 0.5% OPTH.SOL* BTL BOTH EYES SCH (21:02)
[2017-09-15] MEDS: QUEtiapine XR TAB* 50 MG PO SCH (21:58)
[2017-09-16] MEDS: Magnesium Oxide TAB* 400 MG PO SCH (09:26)
[2017-09-16] MEDS: Tiotropium CAP.INH* CAP.INH/18 MCG (USE ORDER SET !) INH SCH (09:26)
[2017-09-16] MEDS: amLODIPine TAB* 5 MG PO SCH (09:27)
[2017-09-16] MEDS: DULoxetine DR CAP* 60 MG CAP.DR PO SCH (09:27)
[2017-09-16] MEDS: Gabapentin CAP(*) 100 MG PO SCH ×3 (09:27→20:02)
[2017-09-16] MEDS: Omeprazole CAP* 20 MG PO SCH (09:27)
[2017-09-16] MEDS: Oxybutynin XL TAB* 5 MG PO SCH (09:27)
[2017-09-16] MEDS: Aspirin EC TAB* 81 MG TAB.EC PO SCH (09:27)
[2017-09-16] MEDS: LACTASE ENZYME 3000 UNIT PO SCH ×3 (09:27→17:04)
[2017-09-16] MEDS: Nicotine PATCH 14 MG/24 HR* PATCH TRANSDERM SCH (09:31)
[2017-09-16] MEDS ORDERED: Albuterol HFA INHALER* 8 gm MDI INH PRN (15:14)
[2017-09-16] MEDS: Albuterol HFA INHALER* 8 gm MDI INH SCH (20:01)
[2017-09-16] MEDS: Atorvastatin* 20 MG TAB PO SCH (20:01)
[2017-09-16] MEDS: QUEtiapine XR TAB* 50 MG PO SCH ×2 (20:02→20:07)
[2017-09-16] MEDS: Divalproex ER TAB(*) 250 MG PO SCH (20:02)
[2017-09-16] MEDS: Nystatin CREAM* 15 GM TUBE TOPICAL PRN (20:04)
[2017-09-16] MEDS: Latanoprost 0.005%* 2.5 ml BTL BOTH EYES SCH (20:45)
[2017-09-16] MEDS: Timolol 0.5% OPTH.SOL* BTL BOTH EYES SCH (20:45)
[2017-09-16] MEDS: Nicotine Patch Removal NOTE PATCH OFF SCH (20:45)
[2017-09-17] MEDS: Nicotine PATCH 14 MG/24 HR* PATCH TRANSDERM SCH (09:28)
[2017-09-17] MEDS: amLODIPine TAB* 5 MG PO SCH (09:29)
[2017-09-17] MEDS: LACTASE ENZYME 3000 UNIT PO SCH ×3 (09:29→16:50)
[2017-09-17] MEDS: Aspirin EC TAB* 81 MG TAB.EC PO SCH (09:30)
[2017-09-17] MEDS: Gabapentin CAP(*) 100 MG PO SCH ×3 (09:30→21:07)
[2017-09-17] MEDS: Magnesium Oxide TAB* 400 MG PO SCH (09:30)
[2017-09-17] MEDS: DULoxetine DR CAP* 60 MG CAP.DR PO SCH (09:30)
[2017-09-17] MEDS: Omeprazole CAP* 20 MG PO SCH (09:32)
[2017-09-17] MEDS: Oxybutynin XL TAB* 5 MG PO SCH (09:32)
[2017-09-17] MEDS: Tiotropium CAP.INH* CAP.INH/18 MCG (USE ORDER SET !) INH SCH (09:32)
--- NOTE | 2017-09-17 11:10 | PN ---
Subjective - Subjective Subjective: Psychiatric Attending progress note: Bernadette is attending groups. Patient is performing her ADL's inclulding showering on her own. she has good appetite and is sleeping through the night Patient complained to nurses earlier of burning with urination and buring in the area of introitus unrelated to micturition. Patient had single dose of diflucan on 09/14/2017 which would treat fungal infection. Urine C and S completed several days ago showed no growth. likelihood is that patient has urethritis rather than urinary track infection. patient denies vaginal discharge. Per nursing patient's mood has been much more stable this week no verbal agression, irritability or signs of tatiana evident. Start Pyridium 200 mg TID x 3 days for probable urethritis. Objective - Appearance Appearance: Obese Dysmorphic Features: No Hygiene: Normal Grooming: Fairly Well Kept - Behavior Psychomotor Activities: Normal Exhibits Abnormal Movement: No - Attitude and Relatedness Attitude and Relatedness: Needy Eye Contact: Good - Speech Quality: Unpressured Latencies: Normal Quantity: Copious - Mood Patient's Decription of Mood: "Fine" - Affect Observed Affect: Expansive Affect Consistent with: Euthymia - Thought Process Patient's Thought Process: Coherent Thought Content: No Passive Wish, No Suicidal Planning, No Homicidal Ideation - Sensorium Experiencing Hallucinations: No, Sensorium is Clear Type of Hallucinations: Visual: No, Auditory: No, Command: No - Level of Consciousness Level of Consciousness: Alert Orientation: Yes Intact, Yes Orientated to Time, Yes Orientated to Place, Yes Orientated to Person - Impulse Control Impulse Control: Impaired - Insight and Judgement Insight and Judgement: Poor - Group Participation Particating in Group Activities: Yes - Medication Management Medication Management Adherence: Yes Assessment - Assessment Inpatient DSM-V Dx: F25.0 Clinical Impression: schizoaffective disorder bipolar type. current episode unspecified patient is currently euthymic with very low frequency of grandiose thought and some degree of lability. she is mostly however stable. she is not danger to self or others. She is medication compliant Plan - Plan Treatment Plan: Valproic acid level currently at 64 on 750 mg QHS of depakote ER. this is therpeutic and patient is no longer experiencing excessive sedation She is sleeping through the night. 02 saturation has consistently been in mid 90's for past several days parameters written for nursing with regard to steps to be taken if patient desaturates below 85% continue medicaitons unchanged several post discharge placement options are being explored by nursing home social worker Almaz Delcid
[2017-09-17] MEDS: Phenazopyridine TAB* 100 MG PO SCH ×2 (16:50→21:11)
[2017-09-17] MEDS: Atorvastatin* 20 MG TAB PO SCH (21:09)
[2017-09-17] MEDS: Divalproex ER TAB(*) 250 MG PO SCH (21:10)
[2017-09-17] MEDS: QUEtiapine XR TAB* 50 MG PO SCH (21:11)
[2017-09-17] MEDS: Latanoprost 0.005%* 2.5 ml BTL BOTH EYES SCH (21:12)
[2017-09-17] MEDS: Timolol 0.5% OPTH.SOL* BTL BOTH EYES SCH (21:12)
[2017-09-17] MEDS: Albuterol HFA INHALER* 8 gm MDI INH SCH (21:13)
[2017-09-17] MEDS: Nicotine Patch Removal NOTE PATCH OFF SCH (23:02)
[2017-09-18] MEDS: LACTASE ENZYME 3000 UNIT PO SCH ×3 (09:22→16:59)
[2017-09-18] MEDS: amLODIPine TAB* 5 MG PO SCH (09:22)
[2017-09-18] MEDS: Omeprazole CAP* 20 MG PO SCH (09:23)
[2017-09-18] MEDS: Magnesium Oxide TAB* 400 MG PO SCH (09:23)
[2017-09-18] MEDS: DULoxetine DR CAP* 60 MG CAP.DR PO SCH (09:23)
[2017-09-18] MEDS: Gabapentin CAP(*) 100 MG PO SCH ×3 (09:24→20:03)
[2017-09-18] MEDS: Aspirin EC TAB* 81 MG TAB.EC PO SCH (09:24)
[2017-09-18] MEDS: Oxybutynin XL TAB* 5 MG PO SCH (09:25)
[2017-09-18] MEDS: Nicotine PATCH 14 MG/24 HR* PATCH TRANSDERM SCH (09:25)
[2017-09-18] MEDS: Phenazopyridine TAB* 100 MG PO SCH ×3 (09:27→21:03)
[2017-09-18] MEDS: Tiotropium CAP.INH* CAP.INH/18 MCG (USE ORDER SET !) INH SCH (09:28)
[2017-09-18] MEDS: Albuterol HFA INHALER* 8 gm MDI INH SCH (20:02)
[2017-09-18] MEDS: Divalproex ER TAB(*) 250 MG PO SCH (20:02)
[2017-09-18] MEDS: Atorvastatin* 20 MG TAB PO SCH (20:02)
[2017-09-18] MEDS: QUEtiapine XR TAB* 50 MG PO SCH (20:03)
[2017-09-18] MEDS: Latanoprost 0.005%* 2.5 ml BTL BOTH EYES SCH (21:01)
[2017-09-18] MEDS: Timolol 0.5% OPTH.SOL* BTL BOTH EYES SCH (21:01)
[2017-09-18] MEDS: Nicotine Patch Removal NOTE PATCH OFF SCH (21:01)
[2017-09-19] MEDS: traZODone TAB* 50 MG TAB PO PRN ×2 (00:15→23:25)
[2017-09-19] MEDS: Nystatin CREAM* 15 GM TUBE TOPICAL PRN ×2 (00:15→23:30)
[2017-09-19] MEDS: LACTASE ENZYME 3000 UNIT PO SCH ×3 (09:23→16:52)
[2017-09-19] MEDS: Omeprazole CAP* 20 MG PO SCH (09:24)
[2017-09-19] MEDS: amLODIPine TAB* 5 MG PO SCH (09:24)
[2017-09-19] MEDS: DULoxetine DR CAP* 60 MG CAP.DR PO SCH (09:25)
[2017-09-19] MEDS: Gabapentin CAP(*) 100 MG PO SCH ×3 (09:25→20:33)
[2017-09-19] MEDS: Aspirin EC TAB* 81 MG TAB.EC PO SCH (09:25)
[2017-09-19] MEDS: Oxybutynin XL TAB* 5 MG PO SCH (09:26)
[2017-09-19] MEDS: Nicotine PATCH 14 MG/24 HR* PATCH TRANSDERM SCH (09:26)
[2017-09-19] MEDS: Phenazopyridine TAB* 100 MG PO SCH ×3 (09:26→20:33)
[2017-09-19] MEDS: Magnesium Oxide TAB* 400 MG PO SCH (09:26)
[2017-09-19] MEDS: Tiotropium CAP.INH* CAP.INH/18 MCG (USE ORDER SET !) INH SCH (09:27)
[2017-09-19] MEDS: Divalproex ER TAB(*) 250 MG PO SCH (20:32)
[2017-09-19] MEDS: Albuterol HFA INHALER* 8 gm MDI INH SCH (20:32)
[2017-09-19] MEDS: Atorvastatin* 20 MG TAB PO SCH (20:34)
[2017-09-19] MEDS: QUEtiapine XR TAB* 50 MG PO SCH ×2 (20:48→23:25)
[2017-09-19] MEDS: Nicotine Patch Removal NOTE PATCH OFF SCH (20:48)
[2017-09-19] MEDS: Timolol 0.5% OPTH.SOL* BTL BOTH EYES SCH (20:48)
[2017-09-19] MEDS: Latanoprost 0.005%* 2.5 ml BTL BOTH EYES SCH (20:48)
[2017-09-20] MEDS: DULoxetine DR CAP* 60 MG CAP.DR PO SCH (09:34)
[2017-09-20] MEDS: Omeprazole CAP* 20 MG PO SCH (09:34)
[2017-09-20] MEDS: Aspirin EC TAB* 81 MG TAB.EC PO SCH (09:35)
[2017-09-20] MEDS: amLODIPine TAB* 5 MG PO SCH (09:35)
[2017-09-20] MEDS: Magnesium Oxide TAB* 400 MG PO SCH (09:36)
[2017-09-20] MEDS: Nicotine PATCH 14 MG/24 HR* PATCH TRANSDERM SCH (09:36)
[2017-09-20] MEDS: Phenazopyridine TAB* 100 MG PO SCH (09:37)
[2017-09-20] MEDS: Oxybutynin XL TAB* 5 MG PO SCH (09:37)
[2017-09-20] MEDS: Tiotropium CAP.INH* CAP.INH/18 MCG (USE ORDER SET !) INH SCH (09:37)
[2017-09-20] MEDS: Gabapentin CAP(*) 100 MG PO SCH ×3 (09:38→22:08)
--- NOTE | 2017-09-20 10:13 | PN ---
Subjective - Subjective Subjective: Psychiatric attending Progress Note patient reports that urinary burning and vaginal discomfort has resolved since taking 3 day course of Pyridium. tends to sleep later in morning. attends groups. no behavioral managment issues for the most part cooperative with staff. Patient sleeps through the night and she is tolerating current dosage of Seroquel. Her depakote is now therapeutic. currently on 750 mg QHS. bilingual patient support caseworker has been in touch with family and has been calling various programs. She is very close to solidifying housing for Bernadette. Objective - Appearance Appearance: Obese Dysmorphic Features: No Hygiene: Normal Grooming: Fairly Well Kept - Behavior Psychomotor Activities: Normal Exhibits Abnormal Movement: No - Attitude and Relatedness Attitude and Relatedness: Superficially Cooperative Eye Contact: Fair - Speech Quality: Unpressured Latencies: Normal Quantity: Copious - Mood Patient's Decription of Mood: "Okay" - Affect Observed Affect: Labile Affect Consistent with: Euthymia - Thought Process Patient's Thought Process: Coherent, Circumstantial Thought Content: No Passive Wish, No Suicidal Planning, No Homicidal Ideation, No Paranoid Ideation - Sensorium Experiencing Hallucinations: No, Sensorium is Clear Type of Hallucinations: Visual: No, Auditory: No, Command: No - Level of Consciousness Level of Consciousness: Alert Orientation: Yes Orientated to Time, Yes Orientated to Place, Yes Orientated to Person, No Intact - not to date or day of the week - Impulse Control Impulse Control: Tenuous - Insight and Judgement Insight and Judgement: Poor - Group Participation Particating in Group Activities: Yes - Medication Management Medication Management Adherence: Yes Assessment - Assessment Inpatient DSM-V Dx: F25.0 Clinical Impression: schizoaffective disorder bipolar type. current episode unspecified patient is currently euthymic with very low frequency of grandiose thought and some degree of lability. she is mostly however stable. she is not danger to self or others. She is medication compliant Plan - Plan Treatment Plan: Valproic acid level currently at 64 on 750 mg QHS of depakote ER. this is therpeutic and patient is no longer experiencing excessive sedation She is sleeping through the night. 02 saturation has consistently been in mid 90's for past several days parameters written for nursing with regard to steps to be taken if patient desaturates below 85% continue medicaitons unchanged several post discharge placement options are being explored by outreach and education social worker Almaz Delcid Medications: Current Medications Acetaminophen (Tylenol Tab*) 650 mg PO Q4H PRN PRN Reason: PAIN Al Hydrox/Mg Hydrox/Simethicone (Maalox Plus*) 30 ml PO Q4H PRN PRN Reason: INDIGESTION Last Admin: 09/12/17 22:52 Dose: 30 ml Albuterol (Ventolin Hfa Inhaler*) 2 puff INH BEDTIME [facility] Last Admin: 09/19/17 20:32 Dose: 2 puff Albuterol (Ventolin Hfa Inhaler*) 2 puff INH Q4H PRN PRN Reason: SOB/WHEEZING Amlodipine Besylate (Norvasc Tab*) 7.5 mg PO DAILY [facility] Last Admin: 09/20/17 09:35 Dose: 7.5 mg Aspirin (Aspirin Ec Tab*) 81 mg PO DAILY [facility] Last Admin: 09/20/17 09:35 Dose: 81 mg Atorvastatin Calcium (Lipitor*) 20 mg PO BEDTIME [facility] Last Admin: 09/19/17 20:34 Dose: 20 mg Device (Nicotine Mouth Piece*) 1 each INH .USE WITH NICOTROL PRN PRN Reason: CRAVING Last Admin: 09/02/17 16:38 Dose: 1 each Divalproex Sodium (Depakote Er Tab(*)) 750 mg PO BEDTIME [facility] Last Admin: 09/19/17 20:32 Dose: 750 mg Duloxetine HCl (Cymbalta Cap*) 60 mg PO DAILY [facility] Last Admin: 09/20/17 09:34 Dose: 60 mg Gabapentin (Neurontin Cap(*)) 200 mg PO TID [facility] Last Admin: 09/20/17 09:38 Dose: 200 mg Haloperidol (Haldol Tab*) 2 mg PO Q4H PRN PRN Reason: agitation/psychosis Last Admin: 09/03/17 23:55 Dose: 2 mg Lactase (Lactaid Fast Act (Nf)) 3,000 unit PO TID WITH MEALS [facility] Last Admin: 09/19/17 16:52 Dose: 3,000 unit Latanoprost (Xalatan 0.005%*) 1 drop BOTH EYES BEDTIME [facility] Last Admin: 09/19/17 20:48 Dose: Not Given Magnesium Oxide (Magox 400 Tab*) 400 mg PO DAILY [facility] Last Admin: 09/20/17 09:36 Dose: 400 mg Nicotine (Nicotine Inhaler*) 10 mg INH Q2H PRN PRN Reason: CRAVING Last Admin: 09/04/17 10:42 Dose: 10 mg Nicotine (Nicotine Patch 14 Mg/24 Hr*) 1 patch TRANSDERM DAILY [facility] Last Admin: 09/20/17 09:36 Dose: Not Given Nystatin (Nystatin Cream*) 1 applic TOPICAL BID PRN PRN Reason: YEAST INFECTION Last Admin: 09/19/17 23:30 Dose: 1 apply Omeprazole (Prilosec Cap*) 20 mg PO DAILY [facility] Last Admin: 09/20/17 09:34 Dose: 20 mg Oxybutynin Chloride (Ditropan Xl Tab*) 10 mg PO DAILY [facility] Last Admin: 09/20/17 09:37 Dose: 10 mg Pharmacy Profile Note (Nicotine Patch Removal Note*) 1 note PATCH OFF 2100 [facility] Last Admin: 09/19/17 20:48 Dose: Not Given Quetiapine Fumarate (Seroquel Xr Tab*) 100 mg PO DAILY@21 [facility] Last Admin: 09/19/17 23:25 Dose: 100 mg Timolol Maleate (Timoptic 0.5% Opth*) 1 drop BOTH EYES BEDTIME [facility] Last Admin: 09/19/17 20:48 Dose: Not Given Tiotropium [place] (Spiriva Cap.Inh*) 1 cap INH DAILY [facility] Last Admin: 09/20/17 09:37 Dose: 1 cap Trazodone HCl (Desyrel Tab*) 50 mg PO BEDTIME PRN PRN Reason: SLEEP Last Admin: 09/19/17 23:25 Dose: 50 mg
[2017-09-20] MEDS: LACTASE ENZYME 3000 UNIT PO SCH ×3 (10:35→19:02)
[2017-09-20] MEDS: Nicotine Patch Removal NOTE PATCH OFF SCH (21:43)
[2017-09-20] MEDS: Latanoprost 0.005%* 2.5 ml BTL BOTH EYES SCH (22:01)
[2017-09-20] MEDS: Timolol 0.5% OPTH.SOL* BTL BOTH EYES SCH (22:01)
[2017-09-20] MEDS: Atorvastatin* 20 MG TAB PO SCH (22:08)
[2017-09-20] MEDS: QUEtiapine XR TAB* 50 MG PO SCH (22:08)
[2017-09-20] MEDS: Albuterol HFA INHALER* 8 gm MDI INH SCH (22:08)
[2017-09-20] MEDS: Divalproex ER TAB(*) 250 MG PO SCH (22:08)
[2017-09-21] MEDS: Tiotropium CAP.INH* CAP.INH/18 MCG (USE ORDER SET !) INH SCH (09:54)
[2017-09-21] MEDS: Aspirin EC TAB* 81 MG TAB.EC PO SCH (09:54)
[2017-09-21] MEDS: DULoxetine DR CAP* 60 MG CAP.DR PO SCH (09:54)
[2017-09-21] MEDS: Gabapentin CAP(*) 100 MG PO SCH ×3 (09:54→20:14)
[2017-09-21] MEDS: amLODIPine TAB* 5 MG PO SCH (09:54)
[2017-09-21] MEDS: Magnesium Oxide TAB* 400 MG PO SCH (09:55)
[2017-09-21] MEDS: Omeprazole CAP* 20 MG PO SCH (09:55)
[2017-09-21] MEDS: Oxybutynin XL TAB* 5 MG PO SCH (09:56)
[2017-09-21] MEDS: Nicotine PATCH 14 MG/24 HR* PATCH TRANSDERM SCH (09:57)
[2017-09-21] MEDS: LACTASE ENZYME 3000 UNIT PO SCH ×3 (09:58→16:59)
[2017-09-21] MEDS: Albuterol HFA INHALER* 8 gm MDI INH SCH (20:14)
[2017-09-21] MEDS: Divalproex ER TAB(*) 250 MG PO SCH (20:15)
[2017-09-21] MEDS: Atorvastatin* 20 MG TAB PO SCH (20:15)
[2017-09-21] MEDS: Nicotine Patch Removal NOTE PATCH OFF SCH (20:45)
[2017-09-21] MEDS: Latanoprost 0.005%* 2.5 ml BTL BOTH EYES SCH (20:45)
[2017-09-21] MEDS: Timolol 0.5% OPTH.SOL* BTL BOTH EYES SCH (20:45)
[2017-09-21] MEDS: QUEtiapine XR TAB* 50 MG PO SCH (20:45)
[2017-09-22] MEDS: Acetaminophen TAB* 325 MG PO PRN
[2017-09-22] MEDS: Omeprazole CAP* 20 MG PO SCH (08:32)
[2017-09-22] MEDS: Tiotropium CAP.INH* CAP.INH/18 MCG (USE ORDER SET !) INH SCH (08:32)
[2017-09-22] MEDS: Magnesium Oxide TAB* 400 MG PO SCH (08:32)
[2017-09-22] MEDS: Aspirin EC TAB* 81 MG TAB.EC PO SCH (08:32)
[2017-09-22] MEDS: LACTASE ENZYME 3000 UNIT PO SCH ×3 (08:33→16:53)
[2017-09-22] MEDS: Gabapentin CAP(*) 100 MG PO SCH ×3 (08:33→21:04)
[2017-09-22] MEDS: DULoxetine DR CAP* 60 MG CAP.DR PO SCH (08:33)
[2017-09-22] MEDS: Oxybutynin XL TAB* 5 MG PO SCH (08:33)
[2017-09-22] MEDS: amLODIPine TAB* 5 MG PO SCH (08:33)
[2017-09-22] MEDS: Nicotine PATCH 14 MG/24 HR* PATCH TRANSDERM SCH (08:35)
--- NOTE | 2017-09-22 12:16 | PN ---
Subjective - Subjective Subjective: Psychiatric progress note: patient offers no complaints. cooperative with nursing attending selected groups. has not been agressive. mood has been stable. no signs of tatiana at present. patiently awaiting placement Objective - Appearance Appearance: Well Developed/Nourished Dysmorphic Features: No Hygiene: Normal Grooming: Fairly Well Kept - Behavior Psychomotor Activities: Normal Exhibits Abnormal Movement: No - Attitude and Relatedness Attitude and Relatedness: Cooperative - Speech Quality: Unpressured Latencies: Normal Quantity: Appropriate - Mood Patient's Decription of Mood: "Good" - Affect Observed Affect: Labile - Thought Process Patient's Thought Process: Tangential, Circumstantial Thought Content: No Passive Wish, No Suicidal Planning, No Homicidal Ideation, No Paranoid Ideation - Sensorium Type of Hallucinations: Visual: No, Auditory: No - Level of Consciousness Level of Consciousness: Alert Orientation: Yes Orientated to Time, Yes Orientated to Place, Yes Orientated to Person, No Intact - Impulse Control Impulse Control: Tenuous - Insight and Judgement Insight and Judgement: Poor - Group Participation Particating in Group Activities: Yes - Medication Management Medication Management Adherence: Yes Assessment - Assessment Clinical Impression: schizoaffective disorder bipolar type. current episode unspecified patient is currently euthymic with very low frequency of grandiose thought and some degree of lability. she is not danger to self or others. She is medication compliant. she is awaiting placement Plan - Plan Treatment Plan: Valproic acid level currently at 64 on 750 mg QHS of depakote ER. this is therpeutic and patient is no longer experiencing excessive sedation She is sleeping through the night. continue medicaitons unchanged several post discharge placement options are being explored by social service agency director Almaz Delcid Medications: Current Medications Acetaminophen (Tylenol Tab*) 650 mg PO Q4H PRN PRN Reason: PAIN Last Admin: 09/22/17 00:00 Dose: 650 mg Al Hydrox/Mg Hydrox/Simethicone (Maalox Plus*) 30 ml PO Q4H PRN PRN Reason: INDIGESTION Last Admin: 09/12/17 22:52 Dose: 30 ml Albuterol (Ventolin Hfa Inhaler*) 2 puff INH BEDTIME [facility] Last Admin: 09/21/17 20:14 Dose: 2 puff Albuterol (Ventolin Hfa Inhaler*) 2 puff INH Q4H PRN PRN Reason: SOB/WHEEZING Amlodipine Besylate (Norvasc Tab*) 7.5 mg PO DAILY [facility] Last Admin: 09/22/17 08:33 Dose: 7.5 mg Aspirin (Aspirin Ec Tab*) 81 mg PO DAILY [facility] Last Admin: 09/22/17 08:32 Dose: 81 mg Atorvastatin Calcium (Lipitor*) 20 mg PO BEDTIME [facility] Last Admin: 09/21/17 20:15 Dose: 20 mg Device (Nicotine Mouth Piece*) 1 each INH .USE WITH NICOTROL PRN PRN Reason: CRAVING Last Admin: 09/02/17 16:38 Dose: 1 each Divalproex Sodium (Depakote Er Tab(*)) 750 mg PO BEDTIME [facility] Last Admin: 09/21/17 20:15 Dose: 750 mg Duloxetine HCl (Cymbalta Cap*) 60 mg PO DAILY [facility] Last Admin: 09/22/17 08:33 Dose: 60 mg Gabapentin (Neurontin Cap(*)) 200 mg PO TID [facility] Last Admin: 09/22/17 08:33 Dose: 200 mg Haloperidol (Haldol Tab*) 2 mg PO Q4H PRN PRN Reason: agitation/psychosis Last Admin: 09/03/17 23:55 Dose: 2 mg Lactase (Lactaid Fast Act (Nf)) 3,000 unit PO TID WITH MEALS [facility] Last Admin: 09/22/17 08:33 Dose: 3,000 unit Latanoprost (Xalatan 0.005%*) 1 drop BOTH EYES BEDTIME [facility] Last Admin: 09/21/17 20:45 Dose: Not Given Magnesium Oxide (Magox 400 Tab*) 400 mg PO DAILY [facility] Last Admin: 09/22/17 08:32 Dose: 400 mg Nicotine (Nicotine Inhaler*) 10 mg INH Q2H PRN PRN Reason: CRAVING Last Admin: 09/04/17 10:42 Dose: 10 mg Nicotine (Nicotine Patch 14 Mg/24 Hr*) 1 patch TRANSDERM DAILY [facility] Last Admin: 09/22/17 08:35 Dose: Not Given Nystatin (Nystatin Cream*) 1 applic TOPICAL BID PRN PRN Reason: YEAST INFECTION Last Admin: 09/19/17 23:30 Dose: 1 apply Omeprazole (Prilosec Cap*) 20 mg PO DAILY [facility] Last Admin: 09/22/17 08:32 Dose: 20 mg Oxybutynin Chloride (Ditropan Xl Tab*) 10 mg PO DAILY [facility] Last Admin: 09/22/17 08:33 Dose: 10 mg Pharmacy Profile Note (Nicotine Patch Removal Note*) 1 note PATCH OFF 2100 [facility] Last Admin: 09/21/17 20:45 Dose: Not Given Quetiapine Fumarate (Seroquel Xr Tab*) 100 mg PO DAILY@21 [facility] Last Admin: 09/21/17 20:45 Dose: Not Given Timolol Maleate (Timoptic 0.5% Opth*) 1 drop BOTH EYES BEDTIME [facility] Last Admin: 09/21/17 20:45 Dose: Not Given Tiotropium [place] (Spiriva Cap.Inh*) 1 cap INH DAILY [facility] Last Admin: 09/22/17 08:32 Dose: 1 cap Trazodone HCl (Desyrel Tab*) 50 mg PO BEDTIME PRN PRN Reason: SLEEP Last Admin: 09/22/17 00:00 Dose: 50 mg
[2017-09-22] MEDS: Albuterol HFA INHALER* 8 gm MDI INH SCH (21:04)
[2017-09-22] MEDS: Atorvastatin* 20 MG TAB PO SCH (21:04)
[2017-09-22] MEDS: Divalproex ER TAB(*) 250 MG PO SCH (21:05)
[2017-09-22] MEDS: QUEtiapine XR TAB* 50 MG PO SCH (21:07)
[2017-09-22] MEDS: traZODone TAB* 50 MG TAB PO PRN ×2 (21:07)
[2017-09-22] MEDS: Latanoprost 0.005%* 2.5 ml BTL BOTH EYES SCH (21:10)
[2017-09-22] MEDS: Nicotine Patch Removal NOTE PATCH OFF SCH (21:10)
[2017-09-22] MEDS: Timolol 0.5% OPTH.SOL* BTL BOTH EYES SCH (21:10)
[2017-09-23] MEDS: Acetaminophen TAB* 325 MG PO PRN (00:48)
[2017-09-23] MEDS: Nystatin CREAM* 15 GM TUBE TOPICAL PRN (00:50)
[2017-09-23] MEDS: Omeprazole CAP* 20 MG PO SCH (08:10)
[2017-09-23] MEDS: DULoxetine DR CAP* 60 MG CAP.DR PO SCH (08:10)
[2017-09-23] MEDS: amLODIPine TAB* 5 MG PO SCH (08:11)
[2017-09-23] MEDS: Aspirin EC TAB* 81 MG TAB.EC PO SCH (08:11)
[2017-09-23] MEDS: Gabapentin CAP(*) 100 MG PO SCH ×3 (08:11→20:04)
[2017-09-23] MEDS: Magnesium Oxide TAB* 400 MG PO SCH (08:12)
[2017-09-23] MEDS: Nicotine PATCH 14 MG/24 HR* PATCH TRANSDERM SCH (08:12)
[2017-09-23] MEDS: Oxybutynin XL TAB* 5 MG PO SCH (08:13)
[2017-09-23] MEDS: Tiotropium CAP.INH* CAP.INH/18 MCG (USE ORDER SET !) INH SCH (08:13)
[2017-09-23] MEDS: LACTASE ENZYME 3000 UNIT PO SCH ×3 (08:14→19:09)
[2017-09-23] MEDS: Atorvastatin* 20 MG TAB PO SCH (20:04)
[2017-09-23] MEDS: Divalproex ER TAB(*) 250 MG PO SCH (20:04)
[2017-09-23] MEDS: traZODone TAB* 50 MG TAB PO PRN (20:06)
[2017-09-23] MEDS: Timolol 0.5% OPTH.SOL* BTL BOTH EYES SCH (20:07)
[2017-09-23] MEDS: Nicotine Patch Removal NOTE PATCH OFF SCH (20:07)
[2017-09-23] MEDS: Latanoprost 0.005%* 2.5 ml BTL BOTH EYES SCH (20:07)
[2017-09-23] MEDS: Albuterol HFA INHALER* 8 gm MDI INH SCH (20:07)
[2017-09-23] MEDS: QUEtiapine XR TAB* 50 MG PO SCH ×2 (21:04→23:40)
[2017-09-24] MEDS: Nystatin CREAM* 15 GM TUBE TOPICAL PRN (00:40)
[2017-09-24] MEDS: LACTASE ENZYME 3000 UNIT PO SCH ×3 (10:20→17:04)
[2017-09-24] MEDS: Gabapentin CAP(*) 100 MG PO SCH ×3 (10:20→20:26)
--- NOTE | 2017-09-24 10:29 | PN ---
Subjective - Subjective Subjective: Psychiatric Attending Progress Note: Patient remains fairly stable from psychiatric standpoint. She continues to perseverate about discharge. She receives updates daily from social work with regard to application status at various facilities. patient does not meet shelter level of care criteria and qualifies only for assisted living. She is able to perform ADL's. She ambulates independently although she often uses walker due to back pain which is exacerbated by ambulation. She is forgetful and has mild thought disroder. she could not prepare her own meals and rquires suervised medication due to her cognitive impairments. Objective - Appearance Appearance: Obese Dysmorphic Features: No Hygiene: Normal Grooming: Disheveled - Behavior Psychomotor Activities: Normal Exhibits Abnormal Movement: No - Attitude and Relatedness Attitude and Relatedness: Needy Eye Contact: Fair - Speech Quality: Unpressured Latencies: Normal Quantity: Copious - Mood Patient's Decription of Mood: "Anxious" - Affect Observed Affect: Labile Affect Consistent with: Euthymia - Thought Process Patient's Thought Process: Disorganized Thought Content: No Passive Wish, No Suicidal Planning, No Homicidal Ideation, No Paranoid Ideation - Sensorium Type of Hallucinations: Visual: No, Auditory: No, Command: No - Level of Consciousness Level of Consciousness: Alert Orientation: Yes Orientated to Time, Yes Orientated to Place, Yes Orientated to Person, No Intact - knows month and year but not date and day of week - Impulse Control Impulse Control: Tenuous - Insight and Judgement Insight and Judgement: Poor - Group Participation Particating in Group Activities: Yes - Medication Management Medication Management Adherence: Yes Assessment - Assessment Inpatient DSM-V Dx: F25.0 Clinical Impression: schizoaffective disorder bipolar type. current episode unspecified patient is currently euthymic with very low frequency of grandiose thought and some degree of lability. she is not danger to self or others. She is medication compliant. she is awaiting placement Plan - Plan Treatment Plan: Valproic acid level currently at 64 on 750 mg QHS of depakote ER. this is therpeutic and patient is no longer experiencing excessive sedation She is sleeping through the night. continue medicaitons unchanged several post discharge placement options are being explored by public health social worker Almaz Delcid Medications: Current Medications Acetaminophen (Tylenol Tab*) 650 mg PO Q4H PRN PRN Reason: PAIN Last Admin: 09/23/17 00:48 Dose: 650 mg Al Hydrox/Mg Hydrox/Simethicone (Maalox Plus*) 30 ml PO Q4H PRN PRN Reason: INDIGESTION Last Admin: 09/12/17 22:52 Dose: 30 ml Albuterol (Ventolin Hfa Inhaler*) 2 puff INH BEDTIME [facility] Last Admin: 09/23/17 20:07 Dose: Not Given Albuterol (Ventolin Hfa Inhaler*) 2 puff INH Q4H PRN PRN Reason: SOB/WHEEZING Amlodipine Besylate (Norvasc Tab*) 7.5 mg PO DAILY [facility] Last Admin: 09/23/17 08:11 Dose: 7.5 mg Aspirin (Aspirin Ec Tab*) 81 mg PO DAILY [facility] Last Admin: 09/23/17 08:11 Dose: 81 mg Atorvastatin Calcium (Lipitor*) 20 mg PO BEDTIME [facility] Last Admin: 09/23/17 20:04 Dose: 20 mg Device (Nicotine Mouth Piece*) 1 each INH .USE WITH NICOTROL PRN PRN Reason: CRAVING Last Admin: 09/02/17 16:38 Dose: 1 each Divalproex Sodium (Depakote Er Tab(*)) 750 mg PO BEDTIME [facility] Last Admin: 09/23/17 20:04 Dose: 750 mg Duloxetine HCl (Cymbalta Cap*) 60 mg PO DAILY [facility] Last Admin: 09/23/17 08:10 Dose: 60 mg Gabapentin (Neurontin Cap(*)) 200 mg PO TID [facility] Last Admin: 09/24/17 10:20 Dose: Not Given Haloperidol (Haldol Tab*) 2 mg PO Q4H PRN PRN Reason: agitation/psychosis Last Admin: 09/03/17 23:55 Dose: 2 mg Lactase (Lactaid Fast Act (Nf)) 3,000 unit PO TID WITH MEALS [facility] Last Admin: 09/24/17 10:20 Dose: Not Given Latanoprost (Xalatan 0.005%*) 1 drop BOTH EYES BEDTIME [facility] Last Admin: 09/23/17 20:07 Dose: Not Given Magnesium Oxide (Magox 400 Tab*) 400 mg PO DAILY [facility] Last Admin: 09/23/17 08:12 Dose: 400 mg Nicotine (Nicotine Inhaler*) 10 mg INH Q2H PRN PRN Reason: CRAVING Last Admin: 09/04/17 10:42 Dose: 10 mg Nicotine (Nicotine Patch 14 Mg/24 Hr*) 1 patch TRANSDERM DAILY [facility] Last Admin: 09/23/17 08:12 Dose: Not Given Nystatin (Nystatin Cream*) 1 applic TOPICAL BID PRN PRN Reason: YEAST INFECTION Last Admin: 09/24/17 00:40 Dose: 1 apply Omeprazole (Prilosec Cap*) 20 mg PO DAILY [facility] Last Admin: 09/23/17 08:10 Dose: 20 mg Oxybutynin Chloride (Ditropan Xl Tab*) 10 mg PO DAILY [facility] Last Admin: 09/23/17 08:13 Dose: 10 mg Pharmacy Profile Note (Nicotine Patch Removal Note*) 1 note PATCH OFF 2100 [facility] Last Admin: 09/23/17 20:07 Dose: Not Given Quetiapine Fumarate (Seroquel Xr Tab*) 100 mg PO DAILY@21 [facility] Last Admin: 09/23/17 23:40 Dose: 100 mg Timolol Maleate (Timoptic 0.5% Opth*) 1 drop BOTH EYES BEDTIME [facility] Last Admin: 09/23/17 20:07 Dose: Not Given Tiotropium [place] (Spiriva Cap.Inh*) 1 cap INH DAILY [facility] Last Admin: 09/23/17 08:13 Dose: 1 cap Trazodone HCl (Desyrel Tab*) 50 mg PO BEDTIME PRN PRN Reason: SLEEP Last Admin: 09/23/17 20:06 Dose: 50 mg
[2017-09-24] MEDS: amLODIPine TAB* 5 MG PO SCH (10:30)
[2017-09-24] MEDS: DULoxetine DR CAP* 60 MG CAP.DR PO SCH (10:31)
[2017-09-24] MEDS: Nicotine PATCH 14 MG/24 HR* PATCH TRANSDERM SCH (10:31)
[2017-09-24] MEDS: Aspirin EC TAB* 81 MG TAB.EC PO SCH (10:31)
[2017-09-24] MEDS: Magnesium Oxide TAB* 400 MG PO SCH (10:31)
[2017-09-24] MEDS: Oxybutynin XL TAB* 5 MG PO SCH (10:32)
[2017-09-24] MEDS: Omeprazole CAP* 20 MG PO SCH (10:32)
[2017-09-24] MEDS: Tiotropium CAP.INH* CAP.INH/18 MCG (USE ORDER SET !) INH SCH (10:33)
[2017-09-24] MEDS: Albuterol HFA INHALER* 8 gm MDI INH SCH (20:25)
[2017-09-24] MEDS: Divalproex ER TAB(*) 250 MG PO SCH (20:26)
[2017-09-24] MEDS: Atorvastatin* 20 MG TAB PO SCH (20:26)
[2017-09-24] MEDS: Latanoprost 0.005%* 2.5 ml BTL BOTH EYES SCH (22:10)
[2017-09-24] MEDS: QUEtiapine XR TAB* 50 MG PO SCH (22:10)
[2017-09-24] MEDS: Nicotine Patch Removal NOTE PATCH OFF SCH (22:10)
[2017-09-24] MEDS: Timolol 0.5% OPTH.SOL* BTL BOTH EYES SCH (22:10)
[2017-09-25] MEDS: LACTASE ENZYME 3000 UNIT PO SCH ×3 (08:12→16:55)
[2017-09-25] MEDS: DULoxetine DR CAP* 60 MG CAP.DR PO SCH (09:34)
[2017-09-25] MEDS: amLODIPine TAB* 5 MG PO SCH (09:34)
[2017-09-25] MEDS: Tiotropium CAP.INH* CAP.INH/18 MCG (USE ORDER SET !) INH SCH (09:35)
[2017-09-25] MEDS: Aspirin EC TAB* 81 MG TAB.EC PO SCH (09:36)
[2017-09-25] MEDS: Gabapentin CAP(*) 100 MG PO SCH ×3 (09:37→20:59)
[2017-09-25] MEDS: Omeprazole CAP* 20 MG PO SCH (09:38)
[2017-09-25] MEDS: Magnesium Oxide TAB* 400 MG PO SCH (09:38)
[2017-09-25] MEDS: Nicotine PATCH 14 MG/24 HR* PATCH TRANSDERM SCH (09:38)
[2017-09-25] MEDS: Oxybutynin XL TAB* 5 MG PO SCH (09:39)
[2017-09-25] MEDS: Albuterol HFA INHALER* 8 gm MDI INH SCH (20:58)
[2017-09-25] MEDS: Atorvastatin* 20 MG TAB PO SCH (20:59)
[2017-09-25] MEDS: Divalproex ER TAB(*) 250 MG PO SCH (21:00)
[2017-09-25] MEDS: Timolol 0.5% OPTH.SOL* BTL BOTH EYES SCH (21:05)
[2017-09-25] MEDS: Latanoprost 0.005%* 2.5 ml BTL BOTH EYES SCH (21:05)
[2017-09-25] MEDS: Nicotine Patch Removal NOTE PATCH OFF SCH (21:05)
[2017-09-25] MEDS: QUEtiapine XR TAB* 50 MG PO SCH (21:05)
[2017-09-26] MEDS: LACTASE ENZYME 3000 UNIT PO SCH ×3 (08:43→16:56)
[2017-09-26] MEDS: Nicotine PATCH 14 MG/24 HR* PATCH TRANSDERM SCH (09:37)
[2017-09-26] MEDS: Tiotropium CAP.INH* CAP.INH/18 MCG (USE ORDER SET !) INH SCH (09:38)
[2017-09-26] MEDS: DULoxetine DR CAP* 60 MG CAP.DR PO SCH (09:48)
[2017-09-26] MEDS: Gabapentin CAP(*) 100 MG PO SCH ×3 (09:48→20:08)
[2017-09-26] MEDS: Aspirin EC TAB* 81 MG TAB.EC PO SCH (09:49)
[2017-09-26] MEDS: Magnesium Oxide TAB* 400 MG PO SCH (09:49)
[2017-09-26] MEDS: Omeprazole CAP* 20 MG PO SCH (09:49)
[2017-09-26] MEDS: amLODIPine TAB* 5 MG PO SCH (09:50)
[2017-09-26] MEDS: Oxybutynin XL TAB* 5 MG PO SCH (09:51)
[2017-09-26] MEDS: Albuterol HFA INHALER* 8 gm MDI INH SCH (20:08)
[2017-09-26] MEDS: Atorvastatin* 20 MG TAB PO SCH (20:08)
[2017-09-26] MEDS: Divalproex ER TAB(*) 250 MG PO SCH (20:08)
[2017-09-26] MEDS: Nicotine Patch Removal NOTE PATCH OFF SCH (20:09)
[2017-09-26] MEDS: traZODone TAB* 50 MG TAB PO PRN (20:10)
[2017-09-26] MEDS: QUEtiapine XR TAB* 50 MG PO SCH (20:11)
[2017-09-26] MEDS: Latanoprost 0.005%* 2.5 ml BTL BOTH EYES SCH (20:11)
[2017-09-26] MEDS: Timolol 0.5% OPTH.SOL* BTL BOTH EYES SCH (20:12)
[2017-09-27] MEDS: LACTASE ENZYME 3000 UNIT PO SCH ×3 (08:38→16:54)
[2017-09-27] MEDS: amLODIPine TAB* 5 MG PO SCH (10:35)
[2017-09-27] MEDS: Magnesium Oxide TAB* 400 MG PO SCH (10:35)
[2017-09-27] MEDS: Oxybutynin XL TAB* 5 MG PO SCH (10:36)
[2017-09-27] MEDS: DULoxetine DR CAP* 60 MG CAP.DR PO SCH (10:36)
[2017-09-27] MEDS: Omeprazole CAP* 20 MG PO SCH (10:37)
[2017-09-27] MEDS: Aspirin EC TAB* 81 MG TAB.EC PO SCH (10:37)
[2017-09-27] MEDS: Gabapentin CAP(*) 100 MG PO SCH ×3 (10:37→20:22)
[2017-09-27] MEDS: Tiotropium CAP.INH* CAP.INH/18 MCG (USE ORDER SET !) INH SCH (10:38)
[2017-09-27] MEDS: Nicotine PATCH 14 MG/24 HR* PATCH TRANSDERM SCH (10:45)
--- NOTE | 2017-09-27 11:31 | PN ---
Subjective - Subjective Subjective: Psychiatric Attending Progress Note: Patient had uneventful weekend on the unit. She has been sleeping and eating normally. She is highly focused on discharge and returning to "[place]" so she can be near her family Vitals: Vital Signs: Temp Pulse Resp BP Pulse Ox 97.7 F 79 16 143/72 96 09/27/17 07:35 09/27/17 07:35 09/27/17 14:20 09/27/17 07:35 09/27/17 07:35 Objective - Appearance Appearance: Obese Dysmorphic Features: No Hygiene: Normal Grooming: Disheveled - Behavior Psychomotor Activities: Abnormal-Increased Exhibits Abnormal Movement: No - Attitude and Relatedness Attitude and Relatedness: Needy Eye Contact: Fair - Speech Quality: Unpressured Latencies: Normal Quantity: Copious - Mood Patient's Decription of Mood: sad because I miss my daughter - Affect Observed Affect: Labile - Thought Process Patient's Thought Process: Coherent Thought Content: No Passive Wish, No Suicidal Planning, No Homicidal Ideation - Sensorium Experiencing Hallucinations: No, Sensorium is Clear Type of Hallucinations: Visual: No, Auditory: No, Command: No - Level of Consciousness Level of Consciousness: Alert Orientation: Yes Orientated to Time, Yes Orientated to Place, Yes Orientated to Person, No Intact - not to day of week or date, knows month and y ear - Impulse Control Impulse Control: Intact - Insight and Judgement Insight and Judgement: Fair - Group Participation Particating in Group Activities: Yes - Medication Management Medication Management Adherence: Yes Assessment - Assessment Inpatient DSM-V Dx: F25.0 Clinical Impression: schizoaffective disorder bipolar type. current episode unspecified patient is currently euthymic with very low frequency of grandiose thought and some degree of lability. she is not danger to self or others. She is medication compliant. she is awaiting placement Plan - Plan Treatment Plan: Valproic acid level currently at 64 on 750 mg QHS of depakote ER. this is therpeutic and patient is no longer experiencing excessive sedation She is sleeping through the night. continue medicaitons unchanged several post discharge placement options are being explored by social worker psychiatric Almaz Delcid Medications: Current Medications Acetaminophen (Tylenol Tab*) 650 mg PO Q4H PRN PRN Reason: PAIN Last Admin: 09/23/17 00:48 Dose: 650 mg Al Hydrox/Mg Hydrox/Simethicone (Maalox Plus*) 30 ml PO Q4H PRN PRN Reason: INDIGESTION Last Admin: 09/12/17 22:52 Dose: 30 ml Albuterol (Ventolin Hfa Inhaler*) 2 puff INH BEDTIME [facility] Last Admin: 09/26/17 20:08 Dose: 2 puff Albuterol (Ventolin Hfa Inhaler*) 2 puff INH Q4H PRN PRN Reason: SOB/WHEEZING Amlodipine Besylate (Norvasc Tab*) 7.5 mg PO DAILY [facility] Last Admin: 09/27/17 10:35 Dose: 7.5 mg Aspirin (Aspirin Ec Tab*) 81 mg PO DAILY [facility] Last Admin: 09/27/17 10:37 Dose: 81 mg Atorvastatin Calcium (Lipitor*) 20 mg PO BEDTIME [facility] Last Admin: 09/26/17 20:08 Dose: 20 mg Device (Nicotine Mouth Piece*) 1 each INH .USE WITH NICOTROL PRN PRN Reason: CRAVING Last Admin: 09/02/17 16:38 Dose: 1 each Divalproex Sodium (Depakote Er Tab(*)) 750 mg PO BEDTIME [facility] Last Admin: 09/26/17 20:08 Dose: 750 mg Duloxetine HCl (Cymbalta Cap*) 60 mg PO DAILY [facility] Last Admin: 09/27/17 10:36 Dose: 60 mg Gabapentin (Neurontin Cap(*)) 200 mg PO TID [facility] Last Admin: 09/27/17 10:37 Dose: 200 mg Haloperidol (Haldol Tab*) 2 mg PO Q4H PRN PRN Reason: agitation/psychosis Last Admin: 09/03/17 23:55 Dose: 2 mg Lactase (Lactaid Fast Act (Nf)) 3,000 unit PO TID WITH MEALS [facility] Last Admin: 09/27/17 08:38 Dose: Not Given Latanoprost (Xalatan 0.005%*) 1 drop BOTH EYES BEDTIME [facility] Last Admin: 09/26/17 20:11 Dose: Not Given Magnesium Oxide (Magox 400 Tab*) 400 mg PO DAILY [facility] Last Admin: 09/27/17 10:35 Dose: 400 mg Nicotine (Nicotine Inhaler*) 10 mg INH Q2H PRN PRN Reason: CRAVING Last Admin: 09/04/17 10:42 Dose: 10 mg Nicotine (Nicotine Patch 14 Mg/24 Hr*) 1 patch TRANSDERM DAILY [facility] Last Admin: 09/27/17 10:45 Dose: Not Given Nystatin (Nystatin Cream*) 1 applic TOPICAL BID PRN PRN Reason: YEAST INFECTION Last Admin: 09/24/17 00:40 Dose: 1 apply Omeprazole (Prilosec Cap*) 20 mg PO DAILY [facility] Last Admin: 09/27/17 10:37 Dose: 20 mg Oxybutynin Chloride (Ditropan Xl Tab*) 10 mg PO DAILY [facility] Last Admin: 09/27/17 10:36 Dose: 10 mg Pharmacy Profile Note (Nicotine Patch Removal Note*) 1 note PATCH OFF 2100 [facility] Last Admin: 09/26/17 20:09 Dose: Not Given Quetiapine Fumarate (Seroquel Xr Tab*) 100 mg PO DAILY@21 [facility] Last Admin: 09/26/17 20:11 Dose: Not Given Timolol Maleate (Timoptic 0.5% Opth*) 1 drop BOTH EYES BEDTIME [facility] Last Admin: 09/26/17 20:12 Dose: Not Given Tiotropium [place] (Spiriva Cap.Inh*) 1 cap INH DAILY [facility] Last Admin: 09/27/17 10:38 Dose: 1 cap Trazodone HCl (Desyrel Tab*) 50 mg PO BEDTIME PRN PRN Reason: SLEEP Last Admin: 09/26/17 20:10 Dose: 50 mg
[2017-09-27] MEDS: Nystatin CREAM* 15 GM TUBE TOPICAL PRN (17:19)
[2017-09-27] MEDS: Atorvastatin* 20 MG TAB PO SCH (20:22)
[2017-09-27] MEDS: Albuterol HFA INHALER* 8 gm MDI INH SCH (20:22)
[2017-09-27] MEDS: Divalproex ER TAB(*) 250 MG PO SCH (20:23)
[2017-09-27] MEDS: QUEtiapine XR TAB* 50 MG PO SCH (20:24)
[2017-09-27] MEDS: Timolol 0.5% OPTH.SOL* BTL BOTH EYES SCH (21:08)
[2017-09-27] MEDS: Nicotine Patch Removal NOTE PATCH OFF SCH (21:08)
[2017-09-27] MEDS: Latanoprost 0.005%* 2.5 ml BTL BOTH EYES SCH (21:08)
[2017-09-28] MEDS: Oxybutynin XL TAB* 5 MG PO SCH (09:34)
[2017-09-28] MEDS: Tiotropium CAP.INH* CAP.INH/18 MCG (USE ORDER SET !) INH SCH (09:35)
[2017-09-28] MEDS: LACTASE ENZYME 3000 UNIT PO SCH ×3 (09:35→17:02)
[2017-09-28] MEDS: Gabapentin CAP(*) 100 MG PO SCH ×3 (09:35→20:16)
[2017-09-28] MEDS: Omeprazole CAP* 20 MG PO SCH (09:35)
[2017-09-28] MEDS: Aspirin EC TAB* 81 MG TAB.EC PO SCH (09:35)
[2017-09-28] MEDS: amLODIPine TAB* 5 MG PO SCH (09:37)
[2017-09-28] MEDS: Magnesium Oxide TAB* 400 MG PO SCH (09:37)
[2017-09-28] MEDS: DULoxetine DR CAP* 60 MG CAP.DR PO SCH (10:13)
[2017-09-28] MEDS: Nicotine PATCH 14 MG/24 HR* PATCH TRANSDERM SCH (10:46)
[2017-09-28] MEDS: Albuterol HFA INHALER* 8 gm MDI INH SCH (20:15)
[2017-09-28] MEDS: Divalproex ER TAB(*) 250 MG PO SCH (20:16)
[2017-09-28] MEDS: Atorvastatin* 20 MG TAB PO SCH (20:16)
[2017-09-28] MEDS: QUEtiapine XR TAB* 50 MG PO SCH (20:16)
[2017-09-28] MEDS: traZODone TAB* 50 MG TAB PO PRN (20:19)
[2017-09-28] MEDS: Latanoprost 0.005%* 2.5 ml BTL BOTH EYES SCH (21:12)
[2017-09-28] MEDS: Timolol 0.5% OPTH.SOL* BTL BOTH EYES SCH (21:12)
[2017-09-28] MEDS: Nicotine Patch Removal NOTE PATCH OFF SCH (21:12)
[2017-09-29] MEDS: Aspirin EC TAB* 81 MG TAB.EC PO SCH (09:24)
[2017-09-29] MEDS: amLODIPine TAB* 5 MG PO SCH (09:24)
[2017-09-29] MEDS: Oxybutynin XL TAB* 5 MG PO SCH (09:24)
[2017-09-29] MEDS: Omeprazole CAP* 20 MG PO SCH (09:26)
[2017-09-29] MEDS: DULoxetine DR CAP* 60 MG CAP.DR PO SCH (09:26)
[2017-09-29] MEDS: Gabapentin CAP(*) 100 MG PO SCH ×3 (09:26→23:29)
[2017-09-29] MEDS: LACTASE ENZYME 3000 UNIT PO SCH ×3 (09:27→17:30)
[2017-09-29] MEDS: Tiotropium CAP.INH* CAP.INH/18 MCG (USE ORDER SET !) INH SCH (09:27)
[2017-09-29] MEDS: Magnesium Oxide TAB* 400 MG PO SCH (09:27)
[2017-09-29] MEDS: Nicotine PATCH 14 MG/24 HR* PATCH TRANSDERM SCH (09:28)
--- NOTE | 2017-09-29 10:33 | PN ---
Subjective - Subjective Subjective: Psychiatric Attending Progress Note: patient was encouraged to go on staff pass yesterday. She went out for first time and enjoyed being outside and reported that she intends to go again. Patient continues to voice wanting discharge. she misses her daughter and brothers who live in [facility]. color drum worker has been working diligently to solidify housing for patient. unfortunately patient has reputation of being disruptive at multiple past placements. these facilities are therefore reticent to take her as a client. patient is otherwise doing well. She does tend to isolate in room and sleep during the day. Her mood is at times labile. She does interact with clients and when she attends groups she is appropriate in her interactions. She is eating and sleeping fine. MSE: disheveled speech: loud volume. otherwise normal mood: variable. tearful to euthymic to hypomanic affect labile at times, odd TP: tangential at times but mostly coherent and goal directed and linear TC: has not been talking to herself past week or so. denies AH,VH, delusons, no evidence of paranoia. Alert and Oriented to month, year, person, place. not to date or day of week insight limited judgment: fair to poor Impression: Schizoaffective Disorder Bipolar Type currently unspecified Plan: awaiting placement in assisted living in [facility] continue medication regimen unchanged Assessment - Assessment Inpatient DSM-V Dx: F25.0 Clinical Impression: schizoaffective disorder bipolar type. current episode unspecified patient is currently euthymic with very low frequency of grandiose thought and some degree of lability. she is not danger to self or others. She is medication compliant. she is awaiting placement Plan - Plan Treatment Plan: Valproic acid level currently at 64 on 750 mg QHS of depakote ER. this is therpeutic and patient is no longer experiencing excessive sedation She is sleeping through the night. continue medicaitons unchanged several post discharge placement options are being explored by vp digital marketing social media and crm Almaz Delcid Medications: Current Medications Acetaminophen (Tylenol Tab*) 650 mg PO Q4H PRN PRN Reason: PAIN Last Admin: 09/23/17 00:48 Dose: 650 mg Al Hydrox/Mg Hydrox/Simethicone (Maalox Plus*) 30 ml PO Q4H PRN PRN Reason: INDIGESTION Last Admin: 09/12/17 22:52 Dose: 30 ml Albuterol (Ventolin Hfa Inhaler*) 2 puff INH BEDTIME [facility] Last Admin: 09/28/17 20:15 Dose: 2 puff Albuterol (Ventolin Hfa Inhaler*) 2 puff INH Q4H PRN PRN Reason: SOB/WHEEZING Amlodipine Besylate (Norvasc Tab*) 7.5 mg PO DAILY [facility] Last Admin: 09/29/17 09:24 Dose: 7.5 mg Aspirin (Aspirin Ec Tab*) 81 mg PO DAILY [facility] Last Admin: 09/29/17 09:24 Dose: 81 mg Atorvastatin Calcium (Lipitor*) 20 mg PO BEDTIME [facility] Last Admin: 09/28/17 20:16 Dose: 20 mg Device (Nicotine Mouth Piece*) 1 each INH .USE WITH NICOTROL PRN PRN Reason: CRAVING Last Admin: 09/02/17 16:38 Dose: 1 each Divalproex Sodium (Depakote Er Tab(*)) 750 mg PO BEDTIME [facility] Last Admin: 09/28/17 20:16 Dose: 750 mg Duloxetine HCl (Cymbalta Cap*) 60 mg PO DAILY [facility] Last Admin: 09/29/17 09:26 Dose: 60 mg Gabapentin (Neurontin Cap(*)) 200 mg PO TID [facility] Last Admin: 09/29/17 09:26 Dose: 200 mg Haloperidol (Haldol Tab*) 2 mg PO Q4H PRN PRN Reason: agitation/psychosis Last Admin: 09/03/17 23:55 Dose: 2 mg Lactase (Lactaid Fast Act (Nf)) 3,000 unit PO TID WITH MEALS [facility] Last Admin: 09/29/17 09:27 Dose: 3,000 unit Latanoprost (Xalatan 0.005%*) 1 drop BOTH EYES BEDTIME [facility] Last Admin: 09/28/17 21:12 Dose: Not Given Magnesium Oxide (Magox 400 Tab*) 400 mg PO DAILY [facility] Last Admin: 09/29/17 09:27 Dose: 400 mg Nicotine (Nicotine Inhaler*) 10 mg INH Q2H PRN PRN Reason: CRAVING Last Admin: 09/04/17 10:42 Dose: 10 mg Nicotine (Nicotine Patch 14 Mg/24 Hr*) 1 patch TRANSDERM DAILY [facility] Last Admin: 09/29/17 09:28 Dose: Not Given Nystatin (Nystatin Cream*) 1 applic TOPICAL BID PRN PRN Reason: YEAST INFECTION Last Admin: 09/27/17 17:19 Dose: 1 apply Omeprazole (Prilosec Cap*) 20 mg PO DAILY [facility] Last Admin: 09/29/17 09:26 Dose: 20 mg Oxybutynin Chloride (Ditropan Xl Tab*) 10 mg PO DAILY [facility] Last Admin: 09/29/17 09:24 Dose: 10 mg Pharmacy Profile Note (Nicotine Patch Removal Note*) 1 note PATCH OFF 2100 [facility] Last Admin: 09/28/17 21:12 Dose: Not Given Quetiapine Fumarate (Seroquel Xr Tab*) 100 mg PO DAILY@21 [facility] Last Admin: 09/28/17 20:16 Dose: 100 mg Timolol Maleate (Timoptic 0.5% Opth*) 1 drop BOTH EYES BEDTIME [facility] Last Admin: 09/28/17 21:12 Dose: Not Given Tiotropium [place] (Spiriva Cap.Inh*) 1 cap INH DAILY [facility] Last Admin: 09/29/17 09:27 Dose: 1 cap Trazodone HCl (Desyrel Tab*) 50 mg PO BEDTIME PRN PRN Reason: SLEEP Last Admin: 09/28/17 20:19 Dose: 50 mg
[2017-09-29] MEDS: Latanoprost 0.005%* 2.5 ml BTL BOTH EYES SCH (23:26)
[2017-09-29] MEDS: Nicotine Patch Removal NOTE PATCH OFF SCH (23:27)
[2017-09-29] MEDS: Divalproex ER TAB(*) 250 MG PO SCH (23:28)
[2017-09-29] MEDS: Atorvastatin* 20 MG TAB PO SCH (23:29)
[2017-09-29] MEDS: QUEtiapine XR TAB* 50 MG PO SCH (23:29)
[2017-09-29] MEDS: Albuterol HFA INHALER* 8 gm MDI INH SCH (23:30)
[2017-09-29] MEDS: traZODone TAB* 50 MG TAB PO PRN (23:37)
[2017-09-30] MEDS: Timolol 0.5% OPTH.SOL* BTL BOTH EYES SCH ×2 (01:57→20:52)
[2017-09-30] MEDS: amLODIPine TAB* 5 MG PO SCH (10:21)
[2017-09-30] MEDS: Nicotine PATCH 14 MG/24 HR* PATCH TRANSDERM SCH (10:21)
[2017-09-30] MEDS: LACTASE ENZYME 3000 UNIT PO SCH ×3 (10:21→17:27)
[2017-09-30] MEDS: DULoxetine DR CAP* 60 MG CAP.DR PO SCH (10:22)
[2017-09-30] MEDS: Aspirin EC TAB* 81 MG TAB.EC PO SCH (10:22)
[2017-09-30] MEDS: Oxybutynin XL TAB* 5 MG PO SCH (10:22)
[2017-09-30] MEDS: Omeprazole CAP* 20 MG PO SCH (10:23)
[2017-09-30] MEDS: Gabapentin CAP(*) 100 MG PO SCH ×3 (10:23→20:46)
[2017-09-30] MEDS: Tiotropium CAP.INH* CAP.INH/18 MCG (USE ORDER SET !) INH SCH (10:23)
[2017-09-30] MEDS: Magnesium Oxide TAB* 400 MG PO SCH (10:23)
[2017-09-30] MEDS: Atorvastatin* 20 MG TAB PO SCH (20:47)
[2017-09-30] MEDS: QUEtiapine XR TAB* 50 MG PO SCH (20:48)
[2017-09-30] MEDS: Divalproex ER TAB(*) 250 MG PO SCH (20:48)
[2017-09-30] MEDS: Albuterol HFA INHALER* 8 gm MDI INH SCH (20:50)
[2017-09-30] MEDS: Nicotine Patch Removal NOTE PATCH OFF SCH (20:52)
[2017-09-30] MEDS: Latanoprost 0.005%* 2.5 ml BTL BOTH EYES SCH (20:52)
[2017-10-01] MEDS: DULoxetine DR CAP* 60 MG CAP.DR PO SCH (09:45)
[2017-10-01] MEDS: Gabapentin CAP(*) 100 MG PO SCH ×3 (09:46→20:13)
[2017-10-01] MEDS: Magnesium Oxide TAB* 400 MG PO SCH (09:47)
[2017-10-01] MEDS: amLODIPine TAB* 5 MG PO SCH (09:48)
[2017-10-01] MEDS: Omeprazole CAP* 20 MG PO SCH (09:50)
[2017-10-01] MEDS: Aspirin EC TAB* 81 MG TAB.EC PO SCH (09:50)
[2017-10-01] MEDS: Tiotropium CAP.INH* CAP.INH/18 MCG (USE ORDER SET !) INH SCH (09:53)
[2017-10-01] MEDS: Nicotine PATCH 14 MG/24 HR* PATCH TRANSDERM SCH (09:57)
[2017-10-01] MEDS: Oxybutynin XL TAB* 5 MG PO SCH (10:22)
[2017-10-01] MEDS: LACTASE ENZYME 3000 UNIT PO SCH ×3 (10:22→17:17)
--- NOTE | 2017-10-01 12:22 | PN ---
Subjective - Subjective Subjective: Psychiatric Progress NOte has been attending groups and going out for staff pass naps during day likely due to her age. otherwise is cooperative with staff and has set a goal of not losing control of her temper as she knows that her temper has resulted in her application being rejected or losing placements in the past. Objective - Appearance Appearance: Obese Dysmorphic Features: No Hygiene: Normal Grooming: Disheveled - Behavior Psychomotor Activities: Normal Exhibits Abnormal Movement: No - Attitude and Relatedness Attitude and Relatedness: Cooperative Eye Contact: Good - Speech Quality: Unpressured Latencies: Normal Quantity: Appropriate - Mood Patient's Decription of Mood: "Good" - Affect Observed Affect: Labile Affect Consistent with: Euthymia - Thought Process Patient's Thought Process: Coherent Thought Content: No Passive Wish, No Suicidal Planning, No Homicidal Ideation, No Paranoid Ideation - Sensorium Experiencing Hallucinations: No, Sensorium is Clear Type of Hallucinations: Visual: No, Auditory: No, Command: No - Level of Consciousness Level of Consciousness: Alert Orientation: Yes Intact, Yes Orientated to Time, Yes Orientated to Place, Yes Orientated to Person - Impulse Control Impulse Control: Intact - Insight and Judgement Insight and Judgement: Poor - Group Participation Particating in Group Activities: Yes - Medication Management Medication Management Adherence: Yes Assessment - Assessment Inpatient DSM-V Dx: F25.0 Clinical Impression: schizoaffective disorder bipolar type. current episode unspecified patient is currently euthymic with very low frequency of grandiose thought and some degree of lability. she is not danger to self or others. She is medication compliant. she is awaiting placement Plan - Plan Treatment Plan: Valproic acid level currently at 64 on 750 mg QHS of depakote ER. this is therpeutic and patient is no longer experiencing excessive sedation She is sleeping through the night. continue medicaitons unchanged several post discharge placement options are being explored by social work job titles Almaz Delcid Medications: Current Medications Acetaminophen (Tylenol Tab*) 650 mg PO Q4H PRN PRN Reason: PAIN Last Admin: 09/23/17 00:48 Dose: 650 mg Al Hydrox/Mg Hydrox/Simethicone (Maalox Plus*) 30 ml PO Q4H PRN PRN Reason: INDIGESTION Last Admin: 09/12/17 22:52 Dose: 30 ml Albuterol (Ventolin Hfa Inhaler*) 2 puff INH BEDTIME [facility] Last Admin: 09/30/17 20:50 Dose: 2 puff Albuterol (Ventolin Hfa Inhaler*) 2 puff INH Q4H PRN PRN Reason: SOB/WHEEZING Amlodipine Besylate (Norvasc Tab*) 7.5 mg PO DAILY [facility] Last Admin: 10/01/17 09:48 Dose: 7.5 mg Aspirin (Aspirin Ec Tab*) 81 mg PO DAILY [facility] Last Admin: 10/01/17 09:50 Dose: 81 mg Atorvastatin Calcium (Lipitor*) 20 mg PO BEDTIME [facility] Last Admin: 09/30/17 20:47 Dose: 20 mg Device (Nicotine Mouth Piece*) 1 each INH .USE WITH NICOTROL PRN PRN Reason: CRAVING Last Admin: 09/02/17 16:38 Dose: 1 each Divalproex Sodium (Depakote Er Tab(*)) 750 mg PO BEDTIME [facility] Last Admin: 09/30/17 20:48 Dose: 750 mg Duloxetine HCl (Cymbalta Cap*) 60 mg PO DAILY [facility] Last Admin: 10/01/17 09:45 Dose: 60 mg Gabapentin (Neurontin Cap(*)) 200 mg PO TID [facility] Last Admin: 10/01/17 09:46 Dose: 200 mg Haloperidol (Haldol Tab*) 2 mg PO Q4H PRN PRN Reason: agitation/psychosis Last Admin: 09/03/17 23:55 Dose: 2 mg Lactase (Lactaid Fast Act (Nf)) 3,000 unit PO TID WITH MEALS [facility] Last Admin: 10/01/17 10:22 Dose: 3,000 unit Latanoprost (Xalatan 0.005%*) 1 drop BOTH EYES BEDTIME [facility] Last Admin: 09/30/17 20:52 Dose: Not Given Magnesium Oxide (Magox 400 Tab*) 400 mg PO DAILY [facility] Last Admin: 10/01/17 09:47 Dose: 400 mg Nicotine (Nicotine Inhaler*) 10 mg INH Q2H PRN PRN Reason: CRAVING Last Admin: 09/04/17 10:42 Dose: 10 mg Nicotine (Nicotine Patch 14 Mg/24 Hr*) 1 patch TRANSDERM DAILY [facility] Last Admin: 10/01/17 09:57 Dose: Not Given Nystatin (Nystatin Cream*) 1 applic TOPICAL BID PRN PRN Reason: YEAST INFECTION Last Admin: 09/27/17 17:19 Dose: 1 apply Omeprazole (Prilosec Cap*) 20 mg PO DAILY [facility] Last Admin: 10/01/17 09:50 Dose: 20 mg Oxybutynin Chloride (Ditropan Xl Tab*) 10 mg PO DAILY [facility] Last Admin: 10/01/17 10:22 Dose: 10 mg Pharmacy Profile Note (Nicotine Patch Removal Note*) 1 note PATCH OFF 2100 [facility] Last Admin: 09/30/17 20:52 Dose: Not Given Quetiapine Fumarate (Seroquel Xr Tab*) 100 mg PO DAILY@21 [facility] Last Admin: 09/30/17 20:48 Dose: 100 mg Timolol Maleate (Timoptic 0.5% Opth*) 1 drop BOTH EYES BEDTIME [facility] Last Admin: 09/30/17 20:52 Dose: Not Given Tiotropium [place] (Spiriva Cap.Inh*) 1 cap INH DAILY [facility] Last Admin: 10/01/17 09:53 Dose: 1 cap Trazodone HCl (Desyrel Tab*) 50 mg PO BEDTIME PRN PRN Reason: SLEEP Last Admin: 09/29/17 23:37 Dose: 50 mg
[2017-10-01] MEDS: Atorvastatin* 20 MG TAB PO SCH (20:12)
[2017-10-01] MEDS: QUEtiapine XR TAB* 50 MG PO SCH (20:12)
[2017-10-01] MEDS: Divalproex ER TAB(*) 250 MG PO SCH (20:12)
[2017-10-01] MEDS: Albuterol HFA INHALER* 8 gm MDI INH SCH (20:13)
[2017-10-01] MEDS: Latanoprost 0.005%* 2.5 ml BTL BOTH EYES SCH (20:14)
[2017-10-01] MEDS: Timolol 0.5% OPTH.SOL* BTL BOTH EYES SCH (20:14)
[2017-10-01] MEDS: Nicotine Patch Removal NOTE PATCH OFF SCH (20:15)
[2017-10-02] MEDS: DULoxetine DR CAP* 60 MG CAP.DR PO SCH (09:42)
[2017-10-02] MEDS: amLODIPine TAB* 5 MG PO SCH (09:42)
[2017-10-02] MEDS: LACTASE ENZYME 3000 UNIT PO SCH ×3 (09:42→16:54)
[2017-10-02] MEDS: Aspirin EC TAB* 81 MG TAB.EC PO SCH (09:42)
[2017-10-02] MEDS: Gabapentin CAP(*) 100 MG PO SCH ×3 (09:43→21:46)
[2017-10-02] MEDS: Oxybutynin XL TAB* 5 MG PO SCH (09:44)
[2017-10-02] MEDS: Magnesium Oxide TAB* 400 MG PO SCH (09:44)
[2017-10-02] MEDS: Nicotine PATCH 14 MG/24 HR* PATCH TRANSDERM SCH (09:44)
[2017-10-02] MEDS: Omeprazole CAP* 20 MG PO SCH (09:44)
[2017-10-02] MEDS: Tiotropium CAP.INH* CAP.INH/18 MCG (USE ORDER SET !) INH SCH (09:45)
[2017-10-02] MEDS: Albuterol HFA INHALER* 8 gm MDI INH SCH (21:45)
[2017-10-02] MEDS: QUEtiapine XR TAB* 50 MG PO SCH (21:45)
[2017-10-02] MEDS: Divalproex ER TAB(*) 250 MG PO SCH (21:45)
[2017-10-02] MEDS: Nicotine Patch Removal NOTE PATCH OFF SCH (21:46)
[2017-10-02] MEDS: Atorvastatin* 20 MG TAB PO SCH (21:46)
[2017-10-02] MEDS: Latanoprost 0.005%* 2.5 ml BTL BOTH EYES SCH (21:46)
[2017-10-02] MEDS: Timolol 0.5% OPTH.SOL* BTL BOTH EYES SCH (21:47)
[2017-10-02] MEDS: traZODone TAB* 50 MG TAB PO PRN (22:06)
[2017-10-03] MEDS: DULoxetine DR CAP* 60 MG CAP.DR PO SCH (09:44)
[2017-10-03] MEDS: Aspirin EC TAB* 81 MG TAB.EC PO SCH (09:44)
[2017-10-03] MEDS: Magnesium Oxide TAB* 400 MG PO SCH (09:44)
[2017-10-03] MEDS: amLODIPine TAB* 5 MG PO SCH (09:45)
[2017-10-03] MEDS: Omeprazole CAP* 20 MG PO SCH (09:46)
[2017-10-03] MEDS: Tiotropium CAP.INH* CAP.INH/18 MCG (USE ORDER SET !) INH SCH (09:47)
[2017-10-03] MEDS: Oxybutynin XL TAB* 5 MG PO SCH (09:47)
[2017-10-03] MEDS: Nicotine PATCH 14 MG/24 HR* PATCH TRANSDERM SCH (09:47)
[2017-10-03] MEDS: LACTASE ENZYME 3000 UNIT PO SCH ×3 (09:48→17:02)
[2017-10-03] MEDS: Gabapentin CAP(*) 100 MG PO SCH ×3 (09:48→21:04)
[2017-10-03] MEDS: Atorvastatin* 20 MG TAB PO SCH (21:03)
[2017-10-03] MEDS: Acetaminophen TAB* 325 MG PO PRN (21:03)
[2017-10-03] MEDS: Divalproex ER TAB(*) 250 MG PO SCH (21:04)
[2017-10-03] MEDS: QUEtiapine XR TAB* 50 MG PO SCH (21:06)
[2017-10-03] MEDS: Latanoprost 0.005%* 2.5 ml BTL BOTH EYES SCH (21:10)
[2017-10-03] MEDS: Timolol 0.5% OPTH.SOL* BTL BOTH EYES SCH (21:10)
[2017-10-03] MEDS: Albuterol HFA INHALER* 8 gm MDI INH SCH (21:11)
[2017-10-03] MEDS: Nicotine Patch Removal NOTE PATCH OFF SCH (21:12)
[2017-10-03] MEDS: traZODone TAB* 50 MG TAB PO PRN (23:50)
[2017-10-04] MEDS: Omeprazole CAP* 20 MG PO SCH (09:20)
[2017-10-04] MEDS: Magnesium Oxide TAB* 400 MG PO SCH (09:20)
[2017-10-04] MEDS: Aspirin EC TAB* 81 MG TAB.EC PO SCH (09:20)
[2017-10-04] MEDS: amLODIPine TAB* 5 MG PO SCH (09:20)
[2017-10-04] MEDS: LACTASE ENZYME 3000 UNIT PO SCH ×3 (09:21→16:57)
[2017-10-04] MEDS: Gabapentin CAP(*) 100 MG PO SCH ×3 (09:21→20:12)
[2017-10-04] MEDS: DULoxetine DR CAP* 60 MG CAP.DR PO SCH (09:22)
[2017-10-04] MEDS: Oxybutynin XL TAB* 5 MG PO SCH (09:22)
[2017-10-04] MEDS: Tiotropium CAP.INH* CAP.INH/18 MCG (USE ORDER SET !) INH SCH (09:23)
[2017-10-04] MEDS: Nicotine PATCH 14 MG/24 HR* PATCH TRANSDERM SCH (09:24)
--- NOTE | 2017-10-04 15:24 | PN ---
Subjective - Subjective Subjective: Psychiatric Attending Progress Note: Patient had visitors over the weekend including her brothers who came down to see her for Mother's day. Patient very pleased. Bernadette continues to sleep till late in the morning and complains that she feels especially tired in the morning. I have reviewed her medications and do not believe this is a medication side effect but more age related need for Increased sleep (day time naps common when people get into late 70's and 80's. MSE: Bernadette's mood has been stable for several weeks now. euthyhmic with appropriate affect. Thought process organized and coherent. no parnaoia. denies auditory or visual hallucinations. continues to have some grandiose delusions (beieves she is writing a book about mental illness and that she will one day sell it and make alot of money to benefit mentlally ill). Her speech is not loud or pressured. She has been in excellent behavioral control on unit. we have seen no evidence of aggression, agitation or severe irritability. She is alert and oriented. She is able to manage her own ADL's incluidng toileting herself and bathing herself independently. She needs to have meals prepared and medications administered. She participates in groups, goes outside on staff pass. she does have chronic pain which limits her mobility but she ambulates short distances without walker and longer distances with walker. Insight/judgment are fair Assessment - Assessment Inpatient DSM-V Dx: F25.0 Clinical Impression: schizoaffective disorder bipolar type. current episode unspecified patient is currently euthymic. She has baseline grandiose belief that she is writing a novel but is not preoccupied all day long with this belief. Her affect is no longer laile. She has not exhibited irritability, aggression, or disruptive behavior since being admitted to out behavioral health unit 5 weeks ago. She is medication compliant. She is awaiting placement Plan - Plan Treatment Plan: Valproic acid level currently at 64 on 750 mg QHS of depakote ER. sleeping until late in the morning. reports she feels tired during day She is sleeping through the night so its not from inadequate sleep Will Lower Gabapenting to 100 mg TID several post discharge placement options are being explored by director social Almaz Delcid Medications: Current Medications Acetaminophen (Tylenol Tab*) 650 mg PO Q4H PRN PRN Reason: PAIN Last Admin: 10/03/17 21:03 Dose: 650 mg Al Hydrox/Mg Hydrox/Simethicone (Maalox Plus*) 30 ml PO Q4H PRN PRN Reason: INDIGESTION Last Admin: 09/12/17 22:52 Dose: 30 ml Albuterol (Ventolin Hfa Inhaler*) 2 puff INH BEDTIME [facility] Last Admin: 10/03/17 21:11 Dose: 2 puff Albuterol (Ventolin Hfa Inhaler*) 2 puff INH Q4H PRN PRN Reason: SOB/WHEEZING Amlodipine Besylate (Norvasc Tab*) 7.5 mg PO DAILY [facility] Last Admin: 10/04/17 09:20 Dose: 7.5 mg Aspirin (Aspirin Ec Tab*) 81 mg PO DAILY [facility] Last Admin: 10/04/17 09:20 Dose: 81 mg Atorvastatin Calcium (Lipitor*) 20 mg PO BEDTIME [facility] Last Admin: 10/03/17 21:03 Dose: 20 mg Device (Nicotine Mouth Piece*) 1 each INH .USE WITH NICOTROL PRN PRN Reason: CRAVING Last Admin: 09/02/17 16:38 Dose: 1 each Divalproex Sodium (Depakote Er Tab(*)) 750 mg PO BEDTIME [facility] Last Admin: 10/03/17 21:04 Dose: 750 mg Duloxetine HCl (Cymbalta Cap*) 60 mg PO DAILY [facility] Last Admin: 10/04/17 09:22 Dose: 60 mg Gabapentin (Neurontin Cap(*)) 200 mg PO TID [facility] Last Admin: 10/04/17 14:03 Dose: 200 mg Haloperidol (Haldol Tab*) 2 mg PO Q4H PRN PRN Reason: agitation/psychosis Last Admin: 09/03/17 23:55 Dose: 2 mg Lactase (Lactaid Fast Act (Nf)) 3,000 unit PO TID WITH MEALS [facility] Last Admin: 10/04/17 12:02 Dose: 3,000 unit Latanoprost (Xalatan 0.005%*) 1 drop BOTH EYES BEDTIME [facility] Last Admin: 10/03/17 21:10 Dose: 1 drop Magnesium Oxide (Magox 400 Tab*) 400 mg PO DAILY [facility] Last Admin: 10/04/17 09:20 Dose: 400 mg Nicotine (Nicotine Inhaler*) 10 mg INH Q2H PRN PRN Reason: CRAVING Last Admin: 09/04/17 10:42 Dose: 10 mg Nicotine (Nicotine Patch 14 Mg/24 Hr*) 1 patch TRANSDERM DAILY [facility] Last Admin: 10/04/17 09:24 Dose: Not Given Nystatin (Nystatin Cream*) 1 applic TOPICAL BID PRN PRN Reason: YEAST INFECTION Last Admin: 09/27/17 17:19 Dose: 1 apply Omeprazole (Prilosec Cap*) 20 mg PO DAILY [facility] Last Admin: 10/04/17 09:20 Dose: 20 mg Oxybutynin Chloride (Ditropan Xl Tab*) 10 mg PO DAILY [facility] Last Admin: 10/04/17 09:22 Dose: 10 mg Pharmacy Profile Note (Nicotine Patch Removal Note*) 1 note PATCH OFF 2100 [facility] Last Admin: 10/03/17 21:12 Dose: Not Given Quetiapine Fumarate (Seroquel Xr Tab*) 100 mg PO DAILY@21 [facility] Last Admin: 10/03/17 21:06 Dose: 100 mg Timolol Maleate (Timoptic 0.5% Opth*) 1 drop BOTH EYES BEDTIME [facility] Last Admin: 10/03/17 21:10 Dose: 1 drop Tiotropium [place] (Spiriva Cap.Inh*) 1 cap INH DAILY [facility] Last Admin: 10/04/17 09:23 Dose: 1 cap Trazodone HCl (Desyrel Tab*) 50 mg PO BEDTIME PRN PRN Reason: SLEEP Last Admin: 10/03/17 23:50 Dose: 50 mg
[2017-10-04] MEDS: Albuterol HFA INHALER* 8 gm MDI INH SCH (20:11)
[2017-10-04] MEDS: Atorvastatin* 20 MG TAB PO SCH (20:12)
[2017-10-04] MEDS: QUEtiapine XR TAB* 50 MG PO SCH (20:12)
[2017-10-04] MEDS: Divalproex ER TAB(*) 250 MG PO SCH (20:12)
[2017-10-04] MEDS: traZODone TAB* 50 MG TAB PO PRN (20:15)
[2017-10-04] MEDS: Latanoprost 0.005%* 2.5 ml BTL BOTH EYES SCH (20:16)
[2017-10-04] MEDS: Nicotine Patch Removal NOTE PATCH OFF SCH (20:16)
[2017-10-04] MEDS: Timolol 0.5% OPTH.SOL* BTL BOTH EYES SCH (20:16)
[2017-10-05] MEDS: Oxybutynin XL TAB* 5 MG PO SCH (11:16)
[2017-10-05] MEDS: LACTASE ENZYME 3000 UNIT PO SCH ×3 (11:16→17:01)
[2017-10-05] MEDS: Tiotropium CAP.INH* CAP.INH/18 MCG (USE ORDER SET !) INH SCH (11:16)
[2017-10-05] MEDS: Gabapentin CAP(*) 100 MG PO SCH ×3 (11:17→20:04)
[2017-10-05] MEDS: Omeprazole CAP* 20 MG PO SCH (11:17)
[2017-10-05] MEDS: Aspirin EC TAB* 81 MG TAB.EC PO SCH (11:17)
[2017-10-05] MEDS: DULoxetine DR CAP* 60 MG CAP.DR PO SCH (11:17)
[2017-10-05] MEDS: amLODIPine TAB* 5 MG PO SCH (11:17)
[2017-10-05] MEDS: Magnesium Oxide TAB* 400 MG PO SCH (11:17)
[2017-10-05] MEDS: Nicotine PATCH 14 MG/24 HR* PATCH TRANSDERM SCH (11:20)
[2017-10-05] MEDS: Nystatin CREAM* 15 GM TUBE TOPICAL PRN (12:12)
[2017-10-05] MEDS: Albuterol HFA INHALER* 8 gm MDI INH SCH (20:04)
[2017-10-05] MEDS: QUEtiapine XR TAB* 50 MG PO SCH (20:05)
[2017-10-05] MEDS: Latanoprost 0.005%* 2.5 ml BTL BOTH EYES SCH (20:05)
[2017-10-05] MEDS: Divalproex ER TAB(*) 250 MG PO SCH (20:05)
[2017-10-05] MEDS: Atorvastatin* 20 MG TAB PO SCH (20:05)
[2017-10-05] MEDS: Nicotine Patch Removal NOTE PATCH OFF SCH (20:06)
[2017-10-05] MEDS: Timolol 0.5% OPTH.SOL* BTL BOTH EYES SCH (20:06)
[2017-10-06] MEDS: LACTASE ENZYME 3000 UNIT PO SCH ×3 (09:25→16:57)
[2017-10-06] MEDS: Tiotropium CAP.INH* CAP.INH/18 MCG (USE ORDER SET !) INH SCH (09:26)
[2017-10-06] MEDS: Oxybutynin XL TAB* 5 MG PO SCH (09:26)
[2017-10-06] MEDS: DULoxetine DR CAP* 60 MG CAP.DR PO SCH (09:26)
[2017-10-06] MEDS: amLODIPine TAB* 5 MG PO SCH (09:26)
[2017-10-06] MEDS: Acetaminophen TAB* 325 MG PO PRN (09:27)
[2017-10-06] MEDS: Omeprazole CAP* 20 MG PO SCH (09:27)
[2017-10-06] MEDS: Nicotine PATCH 14 MG/24 HR* PATCH TRANSDERM SCH (09:27)
[2017-10-06] MEDS: Aspirin EC TAB* 81 MG TAB.EC PO SCH (09:29)
[2017-10-06] MEDS: Magnesium Oxide TAB* 400 MG PO SCH (09:29)
[2017-10-06] MEDS: Gabapentin CAP(*) 100 MG PO SCH ×3 (09:29→21:30)
[2017-10-06] MEDS: Atorvastatin* 20 MG TAB PO SCH (21:31)
[2017-10-06] MEDS: Divalproex ER TAB(*) 250 MG PO SCH (21:31)
[2017-10-06] MEDS: QUEtiapine XR TAB* 50 MG PO SCH (21:34)
[2017-10-06] MEDS: Albuterol HFA INHALER* 8 gm MDI INH SCH (21:37)
[2017-10-06] MEDS: Nicotine Patch Removal NOTE PATCH OFF SCH (21:39)
[2017-10-06] MEDS: Latanoprost 0.005%* 2.5 ml BTL BOTH EYES SCH (21:39)
[2017-10-06] MEDS: Timolol 0.5% OPTH.SOL* BTL BOTH EYES SCH (21:39)
[2017-10-07] MEDS: Acetaminophen TAB* 325 MG PO PRN ×3 (00:30→17:00)
[2017-10-07] MEDS: Al Hydrox/Mg Hydrox/Simet LIQ* 30 ML UDC PO PRN (00:50)
[2017-10-07] MEDS: Tiotropium CAP.INH* CAP.INH/18 MCG (USE ORDER SET !) INH SCH (09:30)
[2017-10-07] MEDS: DULoxetine DR CAP* 60 MG CAP.DR PO SCH (09:33)
[2017-10-07] MEDS: Omeprazole CAP* 20 MG PO SCH (09:33)
[2017-10-07] MEDS: Oxybutynin XL TAB* 5 MG PO SCH (09:33)
[2017-10-07] MEDS: Aspirin EC TAB* 81 MG TAB.EC PO SCH (09:34)
[2017-10-07] MEDS: amLODIPine TAB* 5 MG PO SCH (09:34)
[2017-10-07] MEDS: Gabapentin CAP(*) 100 MG PO SCH ×3 (09:36→21:27)
[2017-10-07] MEDS: Magnesium Oxide TAB* 400 MG PO SCH (09:36)
[2017-10-07] MEDS: LACTASE ENZYME 3000 UNIT PO SCH ×3 (09:37→16:59)
[2017-10-07] MEDS: Nicotine PATCH 14 MG/24 HR* PATCH TRANSDERM SCH (09:44)
--- NOTE | 2017-10-07 12:37 | PN ---
Subjective - Subjective Subjective: Psychiatric Attending Progress Note: Patient was given good news by team yesterday that she has been accepted at transitional living [facility] in [place]. She was extrememly pleased and thanked many of the team members. She continues to have daily naps. she particpates in groups, is friendly and appropriate in her interactions with staff and other patients. She offers no complaints. She is attending to her ADL's, feeds herself and enjoys participating in groups. Patient also likes to recite poetry that she has written. She sleeps through the night. Her vital signs remain stable and within normal limits. Objective - Appearance Appearance: Well Developed/Nourished Dysmorphic Features: No Hygiene: Normal Grooming: Fairly Well Kept - Behavior Psychomotor Activities: Normal Exhibits Abnormal Movement: No - Attitude and Relatedness Attitude and Relatedness: Cooperative Eye Contact: Good - Speech Quality: Unpressured Latencies: Normal Quantity: Appropriate - Mood Patient's Decription of Mood: "Good" - Affect Observed Affect: Good Affect Consistent with: Euthymia - Thought Process Patient's Thought Process: Coherent Thought Content: No Passive Wish, No Suicidal Planning, No Homicidal Ideation, No Paranoid Ideation - Sensorium Experiencing Hallucinations: No, Sensorium is Clear Type of Hallucinations: Visual: No, Auditory: No, Command: No - Level of Consciousness Level of Consciousness: Alert Orientation: Yes Orientated to Time, Yes Orientated to Place, Yes Orientated to Person, No Intact - knows month and year - Impulse Control Impulse Control: Intact - Insight and Judgement Insight and Judgement: Fair - Group Participation Particating in Group Activities: Yes - Medication Management Medication Management Adherence: Yes Assessment - Assessment Inpatient DSM-V Dx: F25.0 Clinical Impression: schizoaffective disorder bipolar type. current episode unspecified patient is currently euthymic. She has baseline grandiose belief that she is writing a novel but is not preoccupied all day long with this belief. Her affect is full range, odd at times She has not exhibited irritability, aggression, or disruptive behavior since being admitted to out behavioral health unit 6 weeks ago. She is medication compliant. She is awaiting placement Plan - Plan Treatment Plan: Valproic acid level currently at 64 on 750 mg QHS of depakote ER. Awaiting placement at transitional living [facility] in [place] continue current medication regimen unchanged. Medications: Current Medications Acetaminophen (Tylenol Tab*) 650 mg PO Q4H PRN PRN Reason: PAIN Last Admin: 10/07/17 11:51 Dose: 650 mg Al Hydrox/Mg Hydrox/Simethicone (Maalox Plus*) 30 ml PO Q4H PRN PRN Reason: INDIGESTION Last Admin: 10/07/17 00:50 Dose: 30 ml Albuterol (Ventolin Hfa Inhaler*) 2 puff INH BEDTIME [facility] Last Admin: 10/06/17 21:37 Dose: 2 puff Albuterol (Ventolin Hfa Inhaler*) 2 puff INH Q4H PRN PRN Reason: SOB/WHEEZING Amlodipine Besylate (Norvasc Tab*) 7.5 mg PO DAILY [facility] Last Admin: 10/07/17 09:34 Dose: 7.5 mg Aspirin (Aspirin Ec Tab*) 81 mg PO DAILY [facility] Last Admin: 10/07/17 09:34 Dose: 81 mg Atorvastatin Calcium (Lipitor*) 20 mg PO BEDTIME [facility] Last Admin: 10/06/17 21:31 Dose: 20 mg Device (Nicotine Mouth Piece*) 1 each INH .USE WITH NICOTROL PRN PRN Reason: CRAVING Last Admin: 09/02/17 16:38 Dose: 1 each Divalproex Sodium (Depakote Er Tab(*)) 750 mg PO BEDTIME [facility] Last Admin: 10/06/17 21:31 Dose: 750 mg Duloxetine HCl (Cymbalta Cap*) 60 mg PO DAILY [facility] Last Admin: 10/07/17 09:33 Dose: 60 mg Gabapentin (Neurontin Cap(*)) 100 mg PO TID [facility] Last Admin: 10/07/17 09:36 Dose: 100 mg Haloperidol (Haldol Tab*) 2 mg PO Q4H PRN PRN Reason: agitation/psychosis Last Admin: 09/03/17 23:55 Dose: 2 mg Lactase (Lactaid Fast Act (Nf)) 3,000 unit PO TID WITH MEALS [facility] Last Admin: 10/07/17 11:44 Dose: 3,000 unit Latanoprost (Xalatan 0.005%*) 1 drop BOTH EYES BEDTIME [facility] Last Admin: 10/06/17 21:39 Dose: Not Given Magnesium Oxide (Magox 400 Tab*) 400 mg PO DAILY [facility] Last Admin: 10/07/17 09:36 Dose: 400 mg Nicotine (Nicotine Inhaler*) 10 mg INH Q2H PRN PRN Reason: CRAVING Last Admin: 09/04/17 10:42 Dose: 10 mg Nicotine (Nicotine Patch 14 Mg/24 Hr*) 1 patch TRANSDERM DAILY [facility] Last Admin: 10/07/17 09:44 Dose: Not Given Nystatin (Nystatin Cream*) 1 applic TOPICAL BID PRN PRN Reason: YEAST INFECTION Last Admin: 10/05/17 12:12 Dose: 1 apply Omeprazole (Prilosec Cap*) 20 mg PO DAILY [facility] Last Admin: 10/07/17 09:33 Dose: 20 mg Oxybutynin Chloride (Ditropan Xl Tab*) 10 mg PO DAILY [facility] Last Admin: 10/07/17 09:33 Dose: 10 mg Pharmacy Profile Note (Nicotine Patch Removal Note*) 1 note PATCH OFF 2100 [facility] Last Admin: 10/06/17 21:39 Dose: Not Given Quetiapine Fumarate (Seroquel Xr Tab*) 100 mg PO DAILY@21 [facility] Last Admin: 10/06/17 21:34 Dose: 100 mg Timolol Maleate (Timoptic 0.5% Opth*) 1 drop BOTH EYES BEDTIME [facility] Last Admin: 10/06/17 21:39 Dose: Not Given Tiotropium [place] (Spiriva Cap.Inh*) 1 cap INH DAILY [facility] Last Admin: 10/07/17 09:30 Dose: 1 cap Trazodone HCl (Desyrel Tab*) 50 mg PO BEDTIME PRN PRN Reason: SLEEP Last Admin: 10/04/17 20:15 Dose: 50 mg
[2017-10-07] MEDS: Divalproex ER TAB(*) 250 MG PO SCH (21:26)
[2017-10-07] MEDS: Atorvastatin* 20 MG TAB PO SCH (21:26)
[2017-10-07] MEDS: QUEtiapine XR TAB* 50 MG PO SCH (21:28)
[2017-10-07] MEDS: Albuterol HFA INHALER* 8 gm MDI INH SCH (21:29)
[2017-10-07] MEDS: Nicotine Patch Removal NOTE PATCH OFF SCH (21:30)
[2017-10-07] MEDS: Latanoprost 0.005%* 2.5 ml BTL BOTH EYES SCH (21:30)
[2017-10-07] MEDS: Timolol 0.5% OPTH.SOL* BTL BOTH EYES SCH (21:30)
[2017-10-08] MEDS: Aspirin EC TAB* 81 MG TAB.EC PO SCH (10:16)
[2017-10-08] MEDS: amLODIPine TAB* 5 MG PO SCH (10:16)
[2017-10-08] MEDS: Gabapentin CAP(*) 100 MG PO SCH ×3 (10:17→21:22)
[2017-10-08] MEDS: Magnesium Oxide TAB* 400 MG PO SCH (10:17)
[2017-10-08] MEDS: Omeprazole CAP* 20 MG PO SCH (10:18)
[2017-10-08] MEDS: DULoxetine DR CAP* 60 MG CAP.DR PO SCH (10:18)
[2017-10-08] MEDS: LACTASE ENZYME 3000 UNIT PO SCH ×3 (10:18→19:19)
[2017-10-08] MEDS: Tiotropium CAP.INH* CAP.INH/18 MCG (USE ORDER SET !) INH SCH (10:20)
[2017-10-08] MEDS: Nicotine PATCH 14 MG/24 HR* PATCH TRANSDERM SCH (10:22)
[2017-10-08] MEDS: Oxybutynin XL TAB* 5 MG PO SCH (10:26)
--- NOTE | 2017-10-08 11:03 | PN ---
Objective - Appearance Appearance: Obese Dysmorphic Features: No Hygiene: Normal Grooming: Fairly Well Kept - Behavior Psychomotor Activities: Normal Exhibits Abnormal Movement: No - Attitude and Relatedness Attitude and Relatedness: Cooperative Eye Contact: Fair - Speech Quality: Unpressured Latencies: Normal Quantity: Appropriate - Mood Patient's Decription of Mood: "Good" - Affect Observed Affect: Good Affect Consistent with: Euthymia - Thought Process Patient's Thought Process: Coherent Thought Content: No Passive Wish, No Suicidal Planning, No Homicidal Ideation, No Paranoid Ideation - Sensorium Experiencing Hallucinations: No, Sensorium is Clear Type of Hallucinations: Visual: No, Auditory: No, Command: No - Level of Consciousness Level of Consciousness: Alert Orientation: Yes Intact, Yes Orientated to Time, Yes Orientated to Place, Yes Orientated to Person - Impulse Control Impulse Control: Intact - Insight and Judgement Insight and Judgement: Fair - Group Participation Particating in Group Activities: Yes - Medication Management Medication Management Adherence: Yes Assessment - Assessment Inpatient DSM-V Dx: F25.0 Clinical Impression: schizoaffective disorder bipolar type. current episode unspecified patient is currently euthymic. She has baseline grandiose belief that she is writing a novel but is not preoccupied all day long with this belief. Her affect is full range, odd at times She has not exhibited irritability, aggression, or disruptive behavior since being admitted to out behavioral health unit 6 weeks ago. She is medication compliant. She is awaiting placement Plan - Plan Treatment Plan: Valproic acid level currently at 64 on 750 mg QHS of depakote ER. Awaiting placement at transitional living program in [place] continue current medication regimen unchanged. Medications: Current Medications Acetaminophen (Tylenol Tab*) 650 mg PO Q4H PRN PRN Reason: PAIN Last Admin: 10/07/17 17:00 Dose: 650 mg Al Hydrox/Mg Hydrox/Simethicone (Maalox Plus*) 30 ml PO Q4H PRN PRN Reason: INDIGESTION Last Admin: 10/07/17 00:50 Dose: 30 ml Albuterol (Ventolin Hfa Inhaler*) 2 puff INH BEDTIME [facility] Last Admin: 10/07/17 21:29 Dose: 2 puff Albuterol (Ventolin Hfa Inhaler*) 2 puff INH Q4H PRN PRN Reason: SOB/WHEEZING Amlodipine Besylate (Norvasc Tab*) 7.5 mg PO DAILY [facility] Last Admin: 10/08/17 10:16 Dose: 7.5 mg Aspirin (Aspirin Ec Tab*) 81 mg PO DAILY [facility] Last Admin: 10/08/17 10:16 Dose: 81 mg Atorvastatin Calcium (Lipitor*) 20 mg PO BEDTIME [facility] Last Admin: 10/07/17 21:26 Dose: 20 mg Device (Nicotine Mouth Piece*) 1 each INH .USE WITH NICOTROL PRN PRN Reason: CRAVING Last Admin: 09/02/17 16:38 Dose: 1 each Divalproex Sodium (Depakote Er Tab(*)) 750 mg PO BEDTIME [facility] Last Admin: 10/07/17 21:26 Dose: 750 mg Duloxetine HCl (Cymbalta Cap*) 60 mg PO DAILY [facility] Last Admin: 10/08/17 10:18 Dose: 60 mg Gabapentin (Neurontin Cap(*)) 100 mg PO TID [facility] Last Admin: 10/08/17 10:17 Dose: 100 mg Haloperidol (Haldol Tab*) 2 mg PO Q4H PRN PRN Reason: agitation/psychosis Last Admin: 09/03/17 23:55 Dose: 2 mg Lactase (Lactaid Fast Act (Nf)) 3,000 unit PO TID WITH MEALS [facility] Last Admin: 10/08/17 10:18 Dose: 3,000 unit Latanoprost (Xalatan 0.005%*) 1 drop BOTH EYES BEDTIME [facility] Last Admin: 10/07/17 21:30 Dose: Not Given Magnesium Oxide (Magox 400 Tab*) 400 mg PO DAILY [facility] Last Admin: 10/08/17 10:17 Dose: 400 mg Nicotine (Nicotine Inhaler*) 10 mg INH Q2H PRN PRN Reason: CRAVING Last Admin: 09/04/17 10:42 Dose: 10 mg Nicotine (Nicotine Patch 14 Mg/24 Hr*) 1 patch TRANSDERM DAILY [facility] Last Admin: 10/08/17 10:22 Dose: Not Given Nystatin (Nystatin Cream*) 1 applic TOPICAL BID PRN PRN Reason: YEAST INFECTION Last Admin: 10/05/17 12:12 Dose: 1 apply Omeprazole (Prilosec Cap*) 20 mg PO DAILY [facility] Last Admin: 10/08/17 10:18 Dose: 20 mg Oxybutynin Chloride (Ditropan Xl Tab*) 10 mg PO DAILY [facility] Last Admin: 10/08/17 10:26 Dose: 10 mg Pharmacy Profile Note (Nicotine Patch Removal Note*) 1 note PATCH OFF 2099 [facility] Last Admin: 10/07/17 21:30 Dose: Not Given Quetiapine Fumarate (Seroquel Xr Tab*) 100 mg PO DAILY@21 [facility] Last Admin: 10/07/17 21:28 Dose: 100 mg Timolol Maleate (Timoptic 0.5% Opth*) 1 drop BOTH EYES BEDTIME [facility] Last Admin: 10/07/17 21:30 Dose: Not Given Tiotropium [place] (Spiriva Cap.Inh*) 1 cap INH DAILY [facility] Last Admin: 10/08/17 10:20 Dose: 1 cap Trazodone HCl (Desyrel Tab*) 50 mg PO BEDTIME PRN PRN Reason: SLEEP Last Admin: 10/04/17 20:15 Dose: 50 mg
[2017-10-08] MEDS: Atorvastatin* 20 MG TAB PO SCH (21:20)
[2017-10-08] MEDS: Divalproex ER TAB(*) 250 MG PO SCH (21:21)
[2017-10-08] MEDS: QUEtiapine XR TAB* 50 MG PO SCH (21:22)
[2017-10-08] MEDS: Nicotine Patch Removal NOTE PATCH OFF SCH (21:24)
[2017-10-08] MEDS: Timolol 0.5% OPTH.SOL* BTL BOTH EYES SCH (21:24)
[2017-10-08] MEDS: Latanoprost 0.005%* 2.5 ml BTL BOTH EYES SCH (21:24)
[2017-10-08] MEDS: Albuterol HFA INHALER* 8 gm MDI INH SCH (21:25)
[2017-10-09] MEDS: LACTASE ENZYME 3000 UNIT PO SCH ×3 (08:24→16:56)
[2017-10-09] MEDS: Tiotropium CAP.INH* CAP.INH/18 MCG (USE ORDER SET !) INH SCH (10:45)
[2017-10-09] MEDS: Omeprazole CAP* 20 MG PO SCH (10:46)
[2017-10-09] MEDS: DULoxetine DR CAP* 60 MG CAP.DR PO SCH (10:47)
[2017-10-09] MEDS: amLODIPine TAB* 5 MG PO SCH (10:47)
[2017-10-09] MEDS: Aspirin EC TAB* 81 MG TAB.EC PO SCH (10:47)
[2017-10-09] MEDS: Gabapentin CAP(*) 100 MG PO SCH ×3 (10:47→21:07)
[2017-10-09] MEDS: Magnesium Oxide TAB* 400 MG PO SCH (10:48)
[2017-10-09] MEDS: Acetaminophen TAB* 325 MG PO PRN (10:49)
[2017-10-09] MEDS: Nicotine PATCH 14 MG/24 HR* PATCH TRANSDERM SCH (11:11)
[2017-10-09] MEDS: Oxybutynin XL TAB* 5 MG PO SCH (11:38)
[2017-10-09] MEDS: Divalproex ER TAB(*) 250 MG PO SCH (21:07)
[2017-10-09] MEDS: Atorvastatin* 20 MG TAB PO SCH (21:07)
[2017-10-09] MEDS: QUEtiapine XR TAB* 50 MG PO SCH (21:10)
[2017-10-09] MEDS: Latanoprost 0.005%* 2.5 ml BTL BOTH EYES SCH (21:15)
[2017-10-09] MEDS: Timolol 0.5% OPTH.SOL* BTL BOTH EYES SCH (21:15)
[2017-10-09] MEDS: Nicotine Patch Removal NOTE PATCH OFF SCH (21:16)
[2017-10-09] MEDS: Albuterol HFA INHALER* 8 gm MDI INH SCH (21:16)
[2017-10-10] MEDS: LACTASE ENZYME 3000 UNIT PO SCH ×3 (08:21→16:30)
[2017-10-10] MEDS: Tiotropium CAP.INH* CAP.INH/18 MCG (USE ORDER SET !) INH SCH (11:45)
[2017-10-10] MEDS: DULoxetine DR CAP* 60 MG CAP.DR PO SCH (11:46)
[2017-10-10] MEDS: Omeprazole CAP* 20 MG PO SCH (11:46)
[2017-10-10] MEDS: Gabapentin CAP(*) 100 MG PO SCH ×3 (11:47→20:44)
[2017-10-10] MEDS: Oxybutynin XL TAB* 5 MG PO SCH (11:47)
[2017-10-10] MEDS: Magnesium Oxide TAB* 400 MG PO SCH (11:47)
[2017-10-10] MEDS: amLODIPine TAB* 5 MG PO SCH (11:48)
[2017-10-10] MEDS: Aspirin EC TAB* 81 MG TAB.EC PO SCH (11:48)
[2017-10-10] MEDS: Acetaminophen TAB* 325 MG PO PRN (11:51)
[2017-10-10] MEDS: Nicotine PATCH 14 MG/24 HR* PATCH TRANSDERM SCH (13:33)
[2017-10-10] MEDS: Divalproex ER TAB(*) 250 MG PO SCH (20:44)
[2017-10-10] MEDS: Atorvastatin* 20 MG TAB PO SCH (20:44)
[2017-10-10] MEDS: Albuterol HFA INHALER* 8 gm MDI INH SCH (20:45)
[2017-10-10] MEDS: Nicotine Patch Removal NOTE PATCH OFF SCH (20:46)
[2017-10-10] MEDS: Timolol 0.5% OPTH.SOL* BTL BOTH EYES SCH (20:46)
[2017-10-10] MEDS: Latanoprost 0.005%* 2.5 ml BTL BOTH EYES SCH (20:46)
[2017-10-10] MEDS: QUEtiapine XR TAB* 50 MG PO SCH (20:47)
[2017-10-11] MEDS: LACTASE ENZYME 3000 UNIT PO SCH ×3 (10:39→16:50)
[2017-10-11] MEDS: amLODIPine TAB* 5 MG PO SCH (11:55)
[2017-10-11] MEDS: Aspirin EC TAB* 81 MG TAB.EC PO SCH (11:56)
[2017-10-11] MEDS: DULoxetine DR CAP* 60 MG CAP.DR PO SCH (11:56)
[2017-10-11] MEDS: Magnesium Oxide TAB* 400 MG PO SCH (11:57)
[2017-10-11] MEDS: Nicotine PATCH 14 MG/24 HR* PATCH TRANSDERM SCH (11:57)
[2017-10-11] MEDS: Gabapentin CAP(*) 100 MG PO SCH ×4 (11:57→20:25)
[2017-10-11] MEDS: Tiotropium CAP.INH* CAP.INH/18 MCG (USE ORDER SET !) INH SCH (11:58)
[2017-10-11] MEDS: Oxybutynin XL TAB* 5 MG PO SCH (11:58)
[2017-10-11] MEDS: Omeprazole CAP* 20 MG PO SCH (11:58)
--- NOTE | 2017-10-11 13:06 | PN ---
Subjective - Subjective Subjective: Psychiatric Attending Progress Note: no physical complaints. sleeping and eating are both adequate. good behavioral control over the weekend. continues to be somewhat inpatient about her discharge. she wants very much to return to [facility] in order to have more regular contact with her siblings and daugher. Vital Signs: Temp Pulse Resp BP Pulse Ox 99.6 F 88 16 131/58 88 10/11/17 07:47 10/11/17 07:47 10/11/17 16:49 10/11/17 07:47 10/11/17 07:47 Objective - Appearance Appearance: Well Developed/Nourished Dysmorphic Features: No Hygiene: Normal Grooming: Fairly Well Kept - Behavior Psychomotor Activities: Normal Exhibits Abnormal Movement: No - Attitude and Relatedness Attitude and Relatedness: Cooperative Eye Contact: Fair - Speech Quality: Unpressured Latencies: Normal Quantity: Copious - Mood Patient's Decription of Mood: "Fine" - Affect Observed Affect: Expansive Affect Consistent with: Euthymia - Thought Process Patient's Thought Process: Coherent, Tangential, Circumstantial Thought Content: No Passive Wish, No Suicidal Planning, No Homicidal Ideation, No Paranoid Ideation - Sensorium Experiencing Hallucinations: No, Sensorium is Clear Type of Hallucinations: Visual: No, Auditory: No, Command: No - Level of Consciousness Level of Consciousness: Alert Orientation: Yes Intact, Yes Orientated to Time, Yes Orientated to Place, Yes Orientated to Person - Impulse Control Impulse Control: Intact - Insight and Judgement Insight and Judgement: Fair - Group Participation Particating in Group Activities: Yes - Medication Management Medication Management Adherence: Yes Assessment - Assessment Inpatient DSM-V Dx: F25.0 Clinical Impression: schizoaffective disorder bipolar type. current episode unspecified patient is currently euthymic. She has baseline grandiose belief that she is writing a novel but is not preoccupied all day long with this belief. Her affect is full range to expansive. She has not exhibited irritability, aggression, or disruptive behavior since being admitted to out behavioral health unit 7 weeks ago. She is medication compliant. She is awaiting placement Plan - Plan Treatment Plan: Valproic acid level currently at 64 on 750 mg QHS of depakote ER. Awaiting placement at transitional living program in [place] continue current medication regimen unchanged. Medications: Current Medications Acetaminophen (Tylenol Tab*) 650 mg PO Q4H PRN PRN Reason: PAIN Last Admin: 10/10/17 11:51 Dose: 650 mg Al Hydrox/Mg Hydrox/Simethicone (Maalox Plus*) 30 ml PO Q4H PRN PRN Reason: INDIGESTION Last Admin: 10/07/17 00:50 Dose: 30 ml Albuterol (Ventolin Hfa Inhaler*) 2 puff INH BEDTIME [facility] Last Admin: 10/10/17 20:45 Dose: Not Given Albuterol (Ventolin Hfa Inhaler*) 2 puff INH Q4H PRN PRN Reason: SOB/WHEEZING Amlodipine Besylate (Norvasc Tab*) 7.5 mg PO DAILY [facility] Last Admin: 10/11/17 11:55 Dose: 7.5 mg Aspirin (Aspirin Ec Tab*) 81 mg PO DAILY [facility] Last Admin: 10/11/17 11:56 Dose: 81 mg Atorvastatin Calcium (Lipitor*) 20 mg PO BEDTIME [facility] Last Admin: 10/10/17 20:44 Dose: 20 mg Device (Nicotine Mouth Piece*) 1 each INH .USE WITH NICOTROL PRN PRN Reason: CRAVING Last Admin: 09/02/17 16:38 Dose: 1 each Divalproex Sodium (Depakote Er Tab(*)) 750 mg PO BEDTIME [facility] Last Admin: 10/10/17 20:44 Dose: 750 mg Duloxetine HCl (Cymbalta Cap*) 60 mg PO DAILY [facility] Last Admin: 10/11/17 11:56 Dose: 60 mg Gabapentin (Neurontin Cap(*)) 100 mg PO TID@,, [facility] Haloperidol (Haldol Tab*) 2 mg PO Q4H PRN PRN Reason: agitation/psychosis Last Admin: 09/03/17 23:55 Dose: 2 mg Lactase (Lactaid Fast Act (Nf)) 3,000 unit PO TID WITH MEALS [facility] Last Admin: 10/11/17 11:58 Dose: 3,000 unit Latanoprost (Xalatan 0.005%*) 1 drop BOTH EYES BEDTIME [facility] Last Admin: 10/10/17 20:46 Dose: Not Given Magnesium Oxide (Magox 400 Tab*) 400 mg PO DAILY [facility] Last Admin: 10/11/17 11:57 Dose: 400 mg Nicotine (Nicotine Inhaler*) 10 mg INH Q2H PRN PRN Reason: CRAVING Last Admin: 09/04/17 10:42 Dose: 10 mg Nicotine (Nicotine Patch 14 Mg/24 Hr*) 1 patch TRANSDERM DAILY [facility] Last Admin: 10/11/17 11:57 Dose: Not Given Nystatin (Nystatin Cream*) 1 applic TOPICAL BID PRN PRN Reason: YEAST INFECTION Last Admin: 10/05/17 12:12 Dose: 1 apply Omeprazole (Prilosec Cap*) 20 mg PO DAILY [facility] Last Admin: 10/11/17 11:58 Dose: 20 mg Oxybutynin Chloride (Ditropan Xl Tab*) 10 mg PO DAILY [facility] Last Admin: 10/11/17 11:58 Dose: 10 mg Pharmacy Profile Note (Nicotine Patch Removal Note*) 1 note PATCH OFF 2100 [facility] Last Admin: 10/10/17 20:46 Dose: Not Given Quetiapine Fumarate (Seroquel Xr Tab*) 100 mg PO DAILY@21 [facility] Last Admin: 10/10/17 20:47 Dose: 100 mg Timolol Maleate (Timoptic 0.5% Opth*) 1 drop BOTH EYES BEDTIME [facility] Last Admin: 10/10/17 20:46 Dose: Not Given Tiotropium [place] (Spiriva Cap.Inh*) 1 cap INH DAILY [facility] Last Admin: 10/11/17 11:58 Dose: 1 cap Trazodone HCl (Desyrel Tab*) 50 mg PO BEDTIME PRN PRN Reason: SLEEP Last Admin: 10/04/17 20:15 Dose: 50 mg
[2017-10-11] MEDS: Acetaminophen TAB* 325 MG PO PRN ×2 (16:51→20:24)
[2017-10-11] MEDS: Albuterol HFA INHALER* 8 gm MDI INH SCH (20:24)
[2017-10-11] MEDS: QUEtiapine XR TAB* 50 MG PO SCH (20:24)
[2017-10-11] MEDS: Atorvastatin* 20 MG TAB PO SCH (20:24)
[2017-10-11] MEDS: Nicotine Patch Removal NOTE PATCH OFF SCH (20:26)
[2017-10-11] MEDS: Timolol 0.5% OPTH.SOL* BTL BOTH EYES SCH (20:26)
[2017-10-11] MEDS: Divalproex ER TAB(*) 250 MG PO SCH (20:26)
[2017-10-11] MEDS: Latanoprost 0.005%* 2.5 ml BTL BOTH EYES SCH (20:26)
[2017-10-12] MEDS: LACTASE ENZYME 3000 UNIT PO SCH ×3 (10:52→16:55)
[2017-10-12] MEDS: Nicotine PATCH 14 MG/24 HR* PATCH TRANSDERM SCH (10:53)
[2017-10-12] MEDS: Magnesium Oxide TAB* 400 MG PO SCH (10:55)
[2017-10-12] MEDS: Aspirin EC TAB* 81 MG TAB.EC PO SCH (10:55)
[2017-10-12] MEDS: Oxybutynin XL TAB* 5 MG PO SCH (10:55)
[2017-10-12] MEDS: Omeprazole CAP* 20 MG PO SCH (10:55)
[2017-10-12] MEDS: Tiotropium CAP.INH* CAP.INH/18 MCG (USE ORDER SET !) INH SCH (10:55)
[2017-10-12] MEDS: amLODIPine TAB* 5 MG PO SCH (10:55)
[2017-10-12] MEDS: DULoxetine DR CAP* 60 MG CAP.DR PO SCH (10:56)
[2017-10-12] MEDS: Gabapentin CAP(*) 100 MG PO SCH ×3 (10:57→21:09)
[2017-10-12] MEDS: Atorvastatin* 20 MG TAB PO SCH (21:09)
[2017-10-12] MEDS: Albuterol HFA INHALER* 8 gm MDI INH SCH (21:09)
[2017-10-12] MEDS: Divalproex ER TAB(*) 250 MG PO SCH (21:09)
[2017-10-12] MEDS: QUEtiapine XR TAB* 50 MG PO SCH (21:10)
[2017-10-12] MEDS: Timolol 0.5% OPTH.SOL* BTL BOTH EYES SCH (21:10)
[2017-10-12] MEDS: Nicotine Patch Removal NOTE PATCH OFF SCH (21:10)
[2017-10-12] MEDS: Latanoprost 0.005%* 2.5 ml BTL BOTH EYES SCH (21:10)
--- NOTE | 2017-10-13 10:47 | PN ---
Subjective - Subjective Subjective: Psychiatric Attending Progress Note: Patient offers no physical complaints. She is functioning quite well at this time. mood has been stable. She particpates in groups when she isnt napping. She does go out on staff pass daily with use of wheel chair. She really enjoys her time outside She picks [place] and interacts with other patient. She is medication comliant and looks forward to placement in transitional living program in [place] Vital Signs: Temp Pulse Resp BP Pulse Ox 98.3 F 101 16 160/67 95 10/13/17 07:51 10/13/17 07:51 10/13/17 13:38 10/13/17 07:51 10/13/17 07:51 Objective - Appearance Appearance: Obese Dysmorphic Features: No Hygiene: Normal Grooming: Fairly Well Kept - Behavior Psychomotor Activities: Normal Exhibits Abnormal Movement: No - Attitude and Relatedness Attitude and Relatedness: Cooperative Eye Contact: Good - Speech Quality: Unpressured Latencies: Normal Quantity: Appropriate - Mood Patient's Decription of Mood: "Fine" - Affect Observed Affect: Expansive Affect Consistent with: Euthymia - Thought Process Patient's Thought Process: Coherent, Circumstantial Thought Content: No Passive Wish, No Suicidal Planning, No Homicidal Ideation, No Paranoid Ideation - Sensorium Experiencing Hallucinations: No, Sensorium is Clear Type of Hallucinations: Visual: No, Auditory: No, Command: No - Level of Consciousness Orientation: Yes Orientated to Time, Yes Orientated to Place, Yes Orientated to Person, No Intact - Impulse Control Impulse Control: Intact - Insight and Judgement Insight and Judgement: Poor - Group Participation Particating in Group Activities: Yes - Medication Management Medication Management Adherence: Yes Assessment - Assessment Merits Inpatient Hospitalization: [facility], For Discharge Planning, Pending Safe DC Plan Inpatient DSM-V Dx: F25.0 Clinical Impression: schizoaffective disorder bipolar type. current episode unspecified patient is currently euthymic. She has baseline grandiose belief that she is writing a novel but is not preoccupied all day long with this belief. Her affect is full range to expansive. She has not exhibited irritability, aggression, or disruptive behavior since being admitted to out behavioral health unit 6 weeks ago. She is medication compliant. She is awaiting placement Plan - Plan Treatment Plan: Valproic acid level currently at 64 on 750 mg QHS of depakote ER. Awaiting placement at transitional living program in [place] continue current medication regimen unchanged. Medications: Current Medications Acetaminophen (Tylenol Tab*) 650 mg PO Q4H PRN PRN Reason: PAIN Last Admin: 10/11/17 20:24 Dose: 650 mg Al Hydrox/Mg Hydrox/Simethicone (Maalox Plus*) 30 ml PO Q4H PRN PRN Reason: INDIGESTION Last Admin: 10/07/17 00:50 Dose: 30 ml Albuterol (Ventolin Hfa Inhaler*) 2 puff INH BEDTIME [facility] Last Admin: 10/12/17 21:09 Dose: 2 puff Albuterol (Ventolin Hfa Inhaler*) 2 puff INH Q4H PRN PRN Reason: SOB/WHEEZING Amlodipine Besylate (Norvasc Tab*) 7.5 mg PO DAILY [facility] Last Admin: 10/12/17 10:55 Dose: 7.5 mg Aspirin (Aspirin Ec Tab*) 81 mg PO DAILY [facility] Last Admin: 10/12/17 10:55 Dose: 81 mg Atorvastatin Calcium (Lipitor*) 20 mg PO BEDTIME [facility] Last Admin: 10/12/17 21:09 Dose: 20 mg Device (Nicotine Mouth Piece*) 1 each INH .USE WITH NICOTROL PRN PRN Reason: CRAVING Last Admin: 09/02/17 16:38 Dose: 1 each Divalproex Sodium (Depakote Er Tab(*)) 750 mg PO BEDTIME [facility] Last Admin: 10/12/17 21:09 Dose: 750 mg Duloxetine HCl (Cymbalta Cap*) 60 mg PO DAILY [facility] Last Admin: 10/12/17 10:56 Dose: 60 mg Gabapentin (Neurontin Cap(*)) 100 mg PO TID@,16,21 [facility] Last Admin: 10/12/17 21:09 Dose: 100 mg Haloperidol (Haldol Tab*) 2 mg PO Q4H PRN PRN Reason: agitation/psychosis Last Admin: 09/03/17 23:55 Dose: 2 mg Lactase (Lactaid Fast Act (Nf)) 3,000 unit PO TID WITH MEALS [facility] Last Admin: 10/12/17 16:55 Dose: 3,000 unit Latanoprost (Xalatan 0.005%*) 1 drop BOTH EYES BEDTIME [facility] Last Admin: 10/12/17 21:10 Dose: Not Given Magnesium Oxide (Magox 400 Tab*) 400 mg PO DAILY [facility] Last Admin: 10/12/17 10:55 Dose: 400 mg Nicotine (Nicotine Inhaler*) 10 mg INH Q2H PRN PRN Reason: CRAVING Last Admin: 09/04/17 10:42 Dose: 10 mg Nicotine (Nicotine Patch 14 Mg/24 Hr*) 1 patch TRANSDERM DAILY [facility] Last Admin: 10/12/17 10:53 Dose: Not Given Nystatin (Nystatin Cream*) 1 applic TOPICAL BID PRN PRN Reason: YEAST INFECTION Last Admin: 10/05/17 12:12 Dose: 1 apply Omeprazole (Prilosec Cap*) 20 mg PO DAILY [facility] Last Admin: 10/12/17 10:55 Dose: 20 mg Oxybutynin Chloride (Ditropan Xl Tab*) 10 mg PO DAILY [facility] Last Admin: 10/12/17 10:55 Dose: 10 mg Pharmacy Profile Note (Nicotine Patch Removal Note*) 1 note PATCH OFF 2100 [facility] Last Admin: 10/12/17 21:10 Dose: Not Given Quetiapine Fumarate (Seroquel Xr Tab*) 100 mg PO DAILY@21 [facility] Last Admin: 10/12/17 21:10 Dose: 100 mg Timolol Maleate (Timoptic 0.5% Opth*) 1 drop BOTH EYES BEDTIME [facility] Last Admin: 10/12/17 21:10 Dose: Not Given Tiotropium [place] (Spiriva Cap.Inh*) 1 cap INH DAILY [facility] Last Admin: 10/12/17 10:55 Dose: 1 cap Trazodone HCl (Desyrel Tab*) 50 mg PO BEDTIME PRN PRN Reason: SLEEP Last Admin: 10/04/17 20:15 Dose: 50 mg
[2017-10-13] MEDS: Aspirin EC TAB* 81 MG TAB.EC PO SCH (11:23)
[2017-10-13] MEDS: Nicotine PATCH 14 MG/24 HR* PATCH TRANSDERM SCH (11:23)
[2017-10-13] MEDS: LACTASE ENZYME 3000 UNIT PO SCH ×3 (11:23→17:21)
[2017-10-13] MEDS: amLODIPine TAB* 5 MG PO SCH (11:24)
[2017-10-13] MEDS: Magnesium Oxide TAB* 400 MG PO SCH (11:24)
[2017-10-13] MEDS: Omeprazole CAP* 20 MG PO SCH (11:25)
[2017-10-13] MEDS: DULoxetine DR CAP* 60 MG CAP.DR PO SCH (11:25)
[2017-10-13] MEDS: Oxybutynin XL TAB* 5 MG PO SCH (11:25)
[2017-10-13] MEDS: Tiotropium CAP.INH* CAP.INH/18 MCG (USE ORDER SET !) INH SCH (11:25)
[2017-10-13] MEDS: Gabapentin CAP(*) 100 MG PO SCH ×3 (11:31→21:25)
[2017-10-13] MEDS: Albuterol HFA INHALER* 8 gm MDI INH SCH (21:25)
[2017-10-13] MEDS: QUEtiapine XR TAB* 50 MG PO SCH (21:25)
[2017-10-13] MEDS: Atorvastatin* 20 MG TAB PO SCH (21:25)
[2017-10-13] MEDS: Divalproex ER TAB(*) 250 MG PO SCH (21:25)
[2017-10-13] MEDS: Nicotine Patch Removal NOTE PATCH OFF SCH (21:32)
[2017-10-13] MEDS: Latanoprost 0.005%* 2.5 ml BTL BOTH EYES SCH (21:32)
[2017-10-13] MEDS: Timolol 0.5% OPTH.SOL* BTL BOTH EYES SCH (21:51)
[2017-10-14] MEDS: LACTASE ENZYME 3000 UNIT PO SCH ×3 (09:55→17:19)
[2017-10-14] MEDS: DULoxetine DR CAP* 60 MG CAP.DR PO SCH (11:08)
[2017-10-14] MEDS: Aspirin EC TAB* 81 MG TAB.EC PO SCH (11:08)
[2017-10-14] MEDS: Gabapentin CAP(*) 100 MG PO SCH (11:08)
[2017-10-14] MEDS: Oxybutynin XL TAB* 5 MG PO SCH (11:08)
[2017-10-14] MEDS: Omeprazole CAP* 20 MG PO SCH (11:08)
[2017-10-14] MEDS: Magnesium Oxide TAB* 400 MG PO SCH (11:08)
[2017-10-14] MEDS: amLODIPine TAB* 5 MG PO SCH (11:09)
[2017-10-14] MEDS: Tiotropium CAP.INH* CAP.INH/18 MCG (USE ORDER SET !) INH SCH (11:10)
[2017-10-14] MEDS: Nicotine PATCH 14 MG/24 HR* PATCH TRANSDERM SCH (11:13)
[2017-10-14 18:11] LABS: ABS Basophils 0.1 10^3/ul (0-0.2); ABS Eosinophils 0.1 10^3/ul (0-0.6); ABS Lymphocytes 3.3 10^3/ul (1.0-4.8); ABS Monocytes 1.1 10^3/ul (0-0.8); ABS Neutrophils 6.1 10^3/ul (1.5-7.7); ABS Nucleated RBC 0 10^3/ul; Eosinophil % 0.9 % (0-6); Hematocrit 38 % (35-47); Hemoglobin 12.8 g/dl (12.0-16.0); Lymphocyte % 30.9 % (25-47); Mean Corpuscular HGB Conc 33 g/dl (31-36); Mean Corpuscular Hemoglobin 34 pg (27-31); Mean Corpuscular Volume 103 fL (80-97); Nucleated Red Blood Cells % 0; Platelet Count 281 10^3/ul (150-450); Red Blood Count 3.73 10^6/ul (4.0-5.4); Red Cell Distribution Width 14 % (10.5-15); White Blood Count 10.8 10^3/ul (3.5-10.8)
[2017-10-14 18:33] LABS: EGFR Non-African American 70.1 (>60)
[2017-10-14] MEDS: Atorvastatin* 20 MG TAB PO SCH (20:33)
[2017-10-14] MEDS: QUEtiapine TAB* 25 MG PO PRN (20:33)
[2017-10-14] MEDS: traZODone TAB* 50 MG TAB PO PRN (20:33)
[2017-10-14] MEDS: Albuterol HFA INHALER* 8 gm MDI INH SCH (20:35)
[2017-10-14] MEDS: Timolol 0.5% OPTH.SOL* BTL BOTH EYES SCH (20:36)
[2017-10-14] MEDS: Nicotine Patch Removal NOTE PATCH OFF SCH (20:36)
[2017-10-14] MEDS: Latanoprost 0.005%* 2.5 ml BTL BOTH EYES SCH (20:36)
[2017-10-15] MEDS: Acetaminophen TAB* 325 MG PO PRN (01:05)
[2017-10-15] MEDS: Tiotropium CAP.INH* CAP.INH/18 MCG (USE ORDER SET !) INH SCH (09:32)
[2017-10-15] MEDS: Multivitamins/Minerals TAB PO SCH (09:33)
[2017-10-15] MEDS: amLODIPine TAB* 5 MG PO SCH (09:34)
[2017-10-15] MEDS: DULoxetine DR CAP* 60 MG CAP.DR PO SCH (09:34)
[2017-10-15] MEDS: Magnesium Oxide TAB* 400 MG PO SCH (09:34)
[2017-10-15] MEDS: Omeprazole CAP* 20 MG PO SCH (09:34)
[2017-10-15] MEDS: Aspirin EC TAB* 81 MG TAB.EC PO SCH (09:34)
[2017-10-15] MEDS: LACTASE ENZYME 3000 UNIT PO SCH ×3 (09:36→17:50)
[2017-10-15] MEDS: Oxybutynin XL TAB* 5 MG PO SCH (09:36)
[2017-10-15] MEDS: Nicotine PATCH 14 MG/24 HR* PATCH TRANSDERM SCH (09:38)
--- NOTE | 2017-10-15 10:24 | PN ---
Subjective - Subjective Subjective: pscyhiatric attending progress note more alert less lethargic after holding psych. meds (depakote, gabapentin and seroquel) x 24 hours. depakote level was 66 urinalysis shows leukoesterase + patient denies side effects Objective - Appearance Appearance: Obese Dysmorphic Features: No Hygiene: Normal Grooming: Disheveled - Behavior Psychomotor Activities: Normal Exhibits Abnormal Movement: No - Attitude and Relatedness Attitude and Relatedness: Cooperative Eye Contact: Good - Speech Quality: Unpressured Latencies: Normal Quantity: Appropriate - Mood Patient's Decription of Mood: "Fine" - Affect Observed Affect: Good Affect Consistent with: Euthymia - Thought Process Patient's Thought Process: Circumstantial Thought Content: No Passive Wish, No Suicidal Planning, No Homicidal Ideation, No Paranoid Ideation - Sensorium Experiencing Hallucinations: No, Sensorium is Clear Type of Hallucinations: Visual: No, Auditory: No, Command: No - Level of Consciousness Orientation: Yes Orientated to Time, Yes Orientated to Place, Yes Orientated to Person, No Intact - Impulse Control Impulse Control: Intact - Insight and Judgement Insight and Judgement: Poor - Group Participation Particating in Group Activities: Yes - Medication Management Medication Management Adherence: Yes Assessment - Assessment Inpatient DSM-V Dx: F25.0 Clinical Impression: schizoaffective disorder bipolar type. current episode unspecified patient is currently euthymic. She has baseline grandiose belief that she is writing a novel but is not preoccupied all day long with this belief. Her affect is full range to expansive. She has not exhibited irritability, aggression, or disruptive behavior since being admitted to out behavioral health unit 6 weeks ago. She is medication compliant. She is awaiting placement Plan - Plan Treatment Plan: medication induced side effects of sedation likely from depakote and seroquel and gabapentin combined effect restart Depakote ER at 500 mg qhs (was at 750 mg qhs) d/c gabapentin restart seroquel 25 mg qhs. may repeat x 1 prn insomnia continue duloxetine 60 mg qam awaiting placement next week urine c and s today Medications: Current Medications Acetaminophen (Tylenol Tab*) 650 mg PO Q4H PRN PRN Reason: PAIN Last Admin: 10/15/17 01:05 Dose: 650 mg Al Hydrox/Mg Hydrox/Simethicone (Maalox Plus*) 30 ml PO Q4H PRN PRN Reason: INDIGESTION Last Admin: 10/07/17 00:50 Dose: 30 ml Albuterol (Ventolin Hfa Inhaler*) 2 puff INH BEDTIME [facility] Last Admin: 10/14/17 20:35 Dose: 2 puff Albuterol (Ventolin Hfa Inhaler*) 2 puff INH Q4H PRN PRN Reason: SOB/WHEEZING Amlodipine Besylate (Norvasc Tab*) 7.5 mg PO DAILY [facility] Last Admin: 10/15/17 09:34 Dose: 7.5 mg Aspirin (Aspirin Ec Tab*) 81 mg PO DAILY [facility] Last Admin: 10/15/17 09:34 Dose: 81 mg Atorvastatin Calcium (Lipitor*) 20 mg PO BEDTIME [facility] Last Admin: 10/14/17 20:33 Dose: 20 mg Device (Nicotine Mouth Piece*) 1 each INH .USE WITH NICOTROL PRN PRN Reason: CRAVING Last Admin: 09/02/17 16:38 Dose: 1 each Divalproex Sodium (Depakote Er Tab(*)) 500 mg PO BEDTIME [facility] Duloxetine HCl (Cymbalta Cap*) 60 mg PO DAILY [facility] Last Admin: 10/15/17 09:34 Dose: 60 mg Lactase (Lactaid Fast Act (Nf)) 3,000 unit PO TID WITH MEALS [facility] Last Admin: 10/15/17 09:36 Dose: 3,000 unit Latanoprost (Xalatan 0.005%*) 1 drop BOTH EYES BEDTIME [facility] Last Admin: 10/14/17 20:36 Dose: Not Given Magnesium Oxide (Magox 400 Tab*) 400 mg PO DAILY [facility] Last Admin: 10/15/17 09:34 Dose: 400 mg Multivitamins/Minerals (Theragran/Minerals Tab*) 1 tab PO DAILY [facility] Last Admin: 10/15/17 09:33 Dose: 1 tab Nicotine (Nicotine Inhaler*) 10 mg INH Q2H PRN PRN Reason: CRAVING Last Admin: 09/04/17 10:42 Dose: 10 mg Nicotine (Nicotine Patch 14 Mg/24 Hr*) 1 patch TRANSDERM DAILY [facility] Last Admin: 10/15/17 09:38 Dose: Not Given Nystatin (Nystatin Cream*) 1 applic TOPICAL BID PRN PRN Reason: YEAST INFECTION Last Admin: 10/05/17 12:12 Dose: 1 apply Omeprazole (Prilosec Cap*) 20 mg PO DAILY [facility] Last Admin: 10/15/17 09:34 Dose: 20 mg Oxybutynin Chloride (Ditropan Xl Tab*) 10 mg PO DAILY [facility] Last Admin: 10/15/17 09:36 Dose: 10 mg Pharmacy Profile Note (Nicotine Patch Removal Note*) 1 note PATCH OFF 2100 [facility] Last Admin: 10/14/17 20:36 Dose: Not Given Quetiapine Fumarate (Seroquel Tab*) 25 mg PO BEDTIME PRN PRN Reason: insomnia Last Admin: 10/14/17 20:33 Dose: 25 mg Quetiapine Fumarate (Seroquel Xr Tab*) 50 mg PO DAILY@17 [facility] Timolol Maleate (Timoptic 0.5% Opth*) 1 drop BOTH EYES BEDTIME [facility] Last Admin: 10/14/17 20:36 Dose: Not Given Tiotropium [place] (Spiriva Cap.Inh*) 1 cap INH DAILY [facility] Last Admin: 10/15/17 09:32 Dose: 1 cap Trazodone HCl (Desyrel Tab*) 50 mg PO BEDTIME PRN PRN Reason: SLEEP Last Admin: 10/14/17 20:33 Dose: 50 mg
[2017-10-15] MEDS: QUEtiapine XR TAB* 50 MG PO SCH (16:35)
[2017-10-16] MEDS: Divalproex ER TAB(*) 500 MG PO SCH ×2 (07:28→21:10)
[2017-10-16] MEDS: Latanoprost 0.005%* 2.5 ml BTL BOTH EYES SCH ×2 (07:28→21:14)
[2017-10-16] MEDS: Atorvastatin* 20 MG TAB PO SCH ×2 (07:28→21:10)
[2017-10-16] MEDS: Albuterol HFA INHALER* 8 gm MDI INH SCH ×2 (07:28→21:13)
[2017-10-16] MEDS: Nicotine Patch Removal NOTE PATCH OFF SCH ×2 (07:29→21:14)
[2017-10-16] MEDS: Timolol 0.5% OPTH.SOL* BTL BOTH EYES SCH ×2 (07:29→21:14)
[2017-10-16] MEDS: Acetaminophen TAB* 325 MG PO PRN (08:14)
[2017-10-16] MEDS: LACTASE ENZYME 3000 UNIT PO SCH ×3 (08:14→17:11)
[2017-10-16] MEDS ORDERED: traMADol TAB* 50 MG ONE (09:40)
[2017-10-16] MEDS: Nicotine PATCH 14 MG/24 HR* PATCH TRANSDERM SCH (09:42)
[2017-10-16] MEDS ORDERED: traMADol TAB* 50 MG PO ONE (10:00)
[2017-10-16] MEDS: amLODIPine TAB* 5 MG PO SCH (10:19)
[2017-10-16] MEDS: Multivitamins/Minerals TAB PO SCH (10:20)
[2017-10-16] MEDS: Omeprazole CAP* 20 MG PO SCH (10:20)
[2017-10-16] MEDS: DULoxetine DR CAP* 60 MG CAP.DR PO SCH (10:20)
[2017-10-16] MEDS: Aspirin EC TAB* 81 MG TAB.EC PO SCH (10:20)
[2017-10-16] MEDS: Magnesium Oxide TAB* 400 MG PO SCH (10:20)
[2017-10-16] MEDS: Oxybutynin XL TAB* 5 MG PO SCH (10:21)
[2017-10-16] MEDS: Tiotropium CAP.INH* CAP.INH/18 MCG (USE ORDER SET !) INH SCH (10:21)
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
[2017-10-16] MEDS: QUEtiapine XR TAB* 50 MG PO SCH (17:11)
--- NOTE | 2017-10-16 18:27 | RAD ---
HISTORY: Right calf pain and ankle edema COMPARISONS: None relevant TECHNIQUE: Multiple transverse and longitudinal ultrasound images were obtained of the right lower extremity from the level of the common femoral vein inferiorly through to the infrapopliteal veins using grayscale, color Doppler, and spectral Doppler imaging with and without compression and with augmentation. Comparison images were obtained of the contralateral common femoral vein. FINDINGS: VEINS: The venous system of the right lower extremity is compressible throughout its course, with normal flow on color Doppler imaging and normal response to augmentation on spectral Doppler imaging. SOFT TISSUES: Unremarkable. OTHER FINDINGS: None. IMPRESSION: NO RIGHT LOWER EXTREMITY DEEP VEIN THROMBOSIS
[2017-10-16] MEDS: traMADol TAB* 50 MG PO PRN (18:41)
[2017-10-17] MEDS: Tiotropium CAP.INH* CAP.INH/18 MCG (USE ORDER SET !) INH SCH (09:44)
[2017-10-17] MEDS: amLODIPine TAB* 5 MG PO SCH (09:46)
[2017-10-17] MEDS: Omeprazole CAP* 20 MG PO SCH (09:46)
[2017-10-17] MEDS: DULoxetine DR CAP* 60 MG CAP.DR PO SCH (09:46)
[2017-10-17] MEDS: Oxybutynin XL TAB* 5 MG PO SCH (09:46)
[2017-10-17] MEDS: LACTASE ENZYME 3000 UNIT PO SCH ×3 (09:46→16:18)
[2017-10-17] MEDS: Multivitamins/Minerals TAB PO SCH (09:48)
[2017-10-17] MEDS: Aspirin EC TAB* 81 MG TAB.EC PO SCH (09:49)
[2017-10-17] MEDS: Magnesium Oxide TAB* 400 MG PO SCH (09:49)
[2017-10-17] MEDS: Nicotine PATCH 14 MG/24 HR* PATCH TRANSDERM SCH (10:07)
--- NOTE | 2017-10-17 12:58 | PN ---
Subjective Date of Service: 10/17/17 Interval History: Patient continue to have left "armpit and shoulder pain", reports its worse with movement. She reports its difficult to raise her arm and uses her left hand to move her arm around. Denies fall but then states "I dont know. No fevers or chills. No wound. Reports this has been going on for "several weeks". Objective Active Medications: Acetaminophen (Tylenol Tab*) 650 mg PO Q4H PRN PRN Reason: PAIN Last Admin: 10/16/17 08:14 Dose: 650 mg Al Hydrox/Mg Hydrox/Simethicone (Maalox Plus*) 30 ml PO Q4H PRN PRN Reason: INDIGESTION Last Admin: 10/07/17 00:50 Dose: 30 ml Albuterol (Ventolin Hfa Inhaler*) 2 puff INH BEDTIME [facility] Last Admin: 10/16/17 21:13 Dose: 2 puff Albuterol (Ventolin Hfa Inhaler*) 2 puff INH Q4H PRN PRN Reason: SOB/WHEEZING Amlodipine Besylate (Norvasc Tab*) 7.5 mg PO DAILY [facility] Last Admin: 10/17/17 09:46 Dose: 7.5 mg Aspirin (Aspirin Ec Tab*) 81 mg PO DAILY [facility] Last Admin: 10/17/17 09:49 Dose: 81 mg Atorvastatin Calcium (Lipitor*) 20 mg PO BEDTIME [facility] Last Admin: 10/16/17 21:10 Dose: 20 mg Device (Nicotine Mouth Piece*) 1 each INH .USE WITH NICOTROL PRN PRN Reason: CRAVING Last Admin: 09/02/17 16:38 Dose: 1 each Divalproex Sodium (Depakote Er Tab(*)) 500 mg PO BEDTIME [facility] Last Admin: 10/16/17 21:10 Dose: 500 mg Duloxetine HCl (Cymbalta Cap*) 60 mg PO DAILY [facility] Last Admin: 10/17/17 09:46 Dose: 60 mg Lactase (Lactaid Fast Act (Nf)) 3,000 unit PO TID WITH MEALS [facility] Last Admin: 10/17/17 12:08 Dose: 3,000 unit Latanoprost (Xalatan 0.005%*) 1 drop BOTH EYES BEDTIME [facility] Last Admin: 10/16/17 21:14 Dose: Not Given Magnesium Oxide (Magox 400 Tab*) 400 mg PO DAILY [facility] Last Admin: 10/17/17 09:49 Dose: 400 mg Multivitamins/Minerals (Theragran/Minerals Tab*) 1 tab PO DAILY [facility] Last Admin: 10/17/17 09:48 Dose: 1 tab Nicotine (Nicotine Inhaler*) 10 mg INH Q2H PRN PRN Reason: CRAVING Last Admin: 09/04/17 10:42 Dose: 10 mg Nicotine (Nicotine Patch 14 Mg/24 Hr*) 1 patch TRANSDERM DAILY [facility] Last Admin: 10/17/17 10:07 Dose: Not Given Nystatin (Nystatin Cream*) 1 applic TOPICAL BID PRN PRN Reason: YEAST INFECTION Last Admin: 10/05/17 12:12 Dose: 1 apply Omeprazole (Prilosec Cap*) 20 mg PO DAILY [facility] Last Admin: 10/17/17 09:46 Dose: 20 mg Oxybutynin Chloride (Ditropan Xl Tab*) 10 mg PO DAILY [facility] Last Admin: 10/17/17 09:46 Dose: 10 mg Pharmacy Profile Note (Nicotine Patch Removal Note*) 1 note PATCH OFF 2100 [facility] Last Admin: 10/16/17 21:14 Dose: Not Given Quetiapine Fumarate (Seroquel Tab*) 25 mg PO BEDTIME PRN PRN Reason: insomnia Last Admin: 10/14/17 20:33 Dose: 25 mg Quetiapine Fumarate (Seroquel Xr Tab*) 50 mg PO DAILY@17 [facility] Last Admin: 10/16/17 17:11 Dose: 50 mg Timolol Maleate (Timoptic 0.5% Opth*) 1 drop BOTH EYES BEDTIME [facility] Last Admin: 10/16/17 21:14 Dose: Not Given Tiotropium [place] (Spiriva Cap.Inh*) 1 cap INH DAILY [facility] Last Admin: 10/17/17 09:44 Dose: 1 cap Tramadol HCl (Ultram*) 50 mg PO Q6H PRN PRN Reason: PAIN Last Admin: 10/16/17 18:41 Dose: 50 mg Trazodone HCl (Desyrel Tab*) 50 mg PO BEDTIME PRN PRN Reason: SLEEP Last Admin: 10/14/17 20:33 Dose: 50 mg Vital Signs - 8 hr 10/17/17 10/17/17 07:32 09:10 Temperature 98.4 F Pulse Rate 78 Respiratory 20 18 Rate Blood Pressure 108/50 (mmHg) O2 Sat by Pulse 90 Oximetry Oxygen Devices in Use Now: None Appearance: alert and oriented 76 yo female in NAD Eyes: No Scleral Icterus, PERRLA Ears/Nose/Mouth/Throat: NL Teeth, Lips, Gums, Mucous Membranes Moist Neck: NL Appearance and Movements; NL JVP Respiratory: Symmetrical Chest Expansion and Respiratory Effort, Clear to Auscultation Cardiovascular: NL Sounds; No Murmurs; No JVD, RRR, No Edema Abdominal: NL Sounds; No Tenderness; No Distention Lymphatic: No Cervical Adenopathy, No Axillary Adenopathy Extremities: - - full ROM with passive ROM but is limited with movement on her own. Left upper pectoris and R axillary in is tender to touch, no noted opne areas, abscess or nodules/masses noted. Neurological: NL Sensation, NL Muscle Strength and Tone, - - alert & Oriented Nutrition: Taking PO's Result Diagrams: 10/14/17 17:57 10/14/17 17:57 Microbiology and Other Data: Microbiology 09/12/17 14:30 Urine Culture - Final Urine Assess/Plan/Problems-Billing Assessment: Ms. Trotter is a 76 yo female with schizoaffective disorder and bipolar and hx of R breast cancer s/p mastectomy who c/o right axillary and upper chest wall tenderness. - Patient Problems (1) Tenderness of left axilla Comment: - Unclear etiology. Pt is a poor historian, it is possible she had a fall?? She is very tender in her right upper pec and axillary area without any noted mass/ nodule. Most likely musculoskeletal but am concerned about her limited ROM in her right arm. Plan to obtain xray and ultrasound. She may need an ortho consult , and PT but will hold off and review imagaing. - continue Tramadol, heat packs - will follow up tomorrow. (2) DVT prophylaxis Comment: ambulation (3) Full code status Status and Disposition: inpatient [facility]
--- NOTE | 2017-10-17 13:42 | RAD ---
INDICATION: Right shoulder pain COMPARISON: None TECHNIQUE: Routine frontal, Y and axial views were obtained. FINDINGS: There is advanced glenohumeral osteoarthritis. The AC joint is preserved. There are findings of calcific tendinitis. There clips in the right axilla. IMPRESSION: ADVANCED GLENOHUMERAL OSTEOARTHRITIS. CALCIFIC TENDINITIS.
[2017-10-17] MEDS: traMADol TAB* 50 MG PO PRN ×2 (13:45→21:08)
[2017-10-17] MEDS: QUEtiapine XR TAB* 50 MG PO SCH (16:17)
[2017-10-17] MEDS: Acetaminophen TAB* 325 MG PO PRN (16:17)
--- NOTE | 2017-10-17 16:41 | RAD ---
INDICATION: Right chest wall tenderness. History of right mastectomy and axilla dissection COMPARISON: None TECHNIQUE: Transverse and longitudinal scans of the right chest wall were performed utilizing grayscale and color Doppler imaging. FINDINGS: There is no sonographic evidence of a chest wall mass. Clinical management is required. IMPRESSION: NO SONOGRAPHIC ABNORMALITIES.
[2017-10-17] MEDS: Atorvastatin* 20 MG TAB PO SCH (21:06)
[2017-10-17] MEDS: Divalproex ER TAB(*) 500 MG PO SCH (21:07)
[2017-10-17] MEDS: traZODone TAB* 50 MG TAB PO PRN (21:07)
[2017-10-17] MEDS: Albuterol HFA INHALER* 8 gm MDI INH SCH (21:10)
[2017-10-17] MEDS: Nicotine Patch Removal NOTE PATCH OFF SCH (21:11)
[2017-10-17] MEDS: Latanoprost 0.005%* 2.5 ml BTL BOTH EYES SCH (21:11)
[2017-10-17] MEDS: Timolol 0.5% OPTH.SOL* BTL BOTH EYES SCH (21:11)
[2017-10-18] MEDS: traMADol TAB* 50 MG PO PRN (09:20)
[2017-10-18] MEDS: Omeprazole CAP* 20 MG PO SCH (09:22)
[2017-10-18] MEDS: Oxybutynin XL TAB* 5 MG PO SCH (09:22)
[2017-10-18] MEDS: LACTASE ENZYME 3000 UNIT PO SCH ×3 (09:22→17:09)
[2017-10-18] MEDS: Magnesium Oxide TAB* 400 MG PO SCH (09:22)
[2017-10-18] MEDS: DULoxetine DR CAP* 60 MG CAP.DR PO SCH (09:22)
[2017-10-18] MEDS: Tiotropium CAP.INH* CAP.INH/18 MCG (USE ORDER SET !) INH SCH (09:23)
[2017-10-18] MEDS: Multivitamins/Minerals TAB PO SCH (09:23)
[2017-10-18] MEDS: amLODIPine TAB* 5 MG PO SCH (09:23)
[2017-10-18] MEDS: Aspirin EC TAB* 81 MG TAB.EC PO SCH (09:23)
[2017-10-18] MEDS: Nicotine PATCH 14 MG/24 HR* PATCH TRANSDERM SCH (09:27)
--- NOTE | 2017-10-18 14:01 | PN ---
Subjective Date of Service: 10/18/17 Interval History: Patient reports he right shoulder feels better today and has better ROM. She reports the pain 06/02. Discussed that this is suspected to be osteoarthritis and she could see an orthopedic surgeon and PT as an outpt and to follow up with PCP. Objective Active Medications: Acetaminophen (Tylenol Tab*) 650 mg PO Q4H PRN PRN Reason: PAIN Last Admin: 10/17/17 16:17 Dose: 650 mg Al Hydrox/Mg Hydrox/Simethicone (Maalox Plus*) 30 ml PO Q4H PRN PRN Reason: INDIGESTION Last Admin: 10/07/17 00:50 Dose: 30 ml Albuterol (Ventolin Hfa Inhaler*) 2 puff INH BEDTIME [facility] Last Admin: 10/17/17 21:10 Dose: 2 puff Albuterol (Ventolin Hfa Inhaler*) 2 puff INH Q4H PRN PRN Reason: SOB/WHEEZING Amlodipine Besylate (Norvasc Tab*) 7.5 mg PO DAILY [facility] Last Admin: 10/18/17 09:23 Dose: 7.5 mg Aspirin (Aspirin Ec Tab*) 81 mg PO DAILY [facility] Last Admin: 10/18/17 09:23 Dose: 81 mg Atorvastatin Calcium (Lipitor*) 20 mg PO BEDTIME [facility] Last Admin: 10/17/17 21:06 Dose: 20 mg Device (Nicotine Mouth Piece*) 1 each INH .USE WITH NICOTROL PRN PRN Reason: CRAVING Last Admin: 09/02/17 16:38 Dose: 1 each Divalproex Sodium (Depakote Er Tab(*)) 500 mg PO BEDTIME [facility] Last Admin: 10/17/17 21:07 Dose: 500 mg Duloxetine HCl (Cymbalta Cap*) 60 mg PO DAILY [facility] Last Admin: 10/18/17 09:22 Dose: 60 mg Lactase (Lactaid Fast Act (Nf)) 3,000 unit PO TID WITH MEALS [facility] Last Admin: 10/18/17 11:30 Dose: Not Given Latanoprost (Xalatan 0.005%*) 1 drop BOTH EYES BEDTIME [facility] Last Admin: 10/17/17 21:11 Dose: Not Given Magnesium Oxide (Magox 400 Tab*) 400 mg PO DAILY [facility] Last Admin: 05/28/18 09:22 Dose: 400 mg Multivitamins/Minerals (Theragran/Minerals Tab*) 1 tab PO DAILY [facility] Last Admin: 10/18/17 09:23 Dose: 1 tab Nicotine (Nicotine Inhaler*) 10 mg INH Q2H PRN PRN Reason: CRAVING Last Admin: 09/04/17 10:42 Dose: 10 mg Nicotine (Nicotine Patch 14 Mg/24 Hr*) 1 patch TRANSDERM DAILY [facility] Last Admin: 10/18/17 09:27 Dose: Not Given Nystatin (Nystatin Cream*) 1 applic TOPICAL BID PRN PRN Reason: YEAST INFECTION Last Admin: 10/05/17 12:12 Dose: 1 apply Omeprazole (Prilosec Cap*) 20 mg PO DAILY [facility] Last Admin: 10/18/17 09:22 Dose: 20 mg Oxybutynin Chloride (Ditropan Xl Tab*) 10 mg PO DAILY [facility] Last Admin: 10/18/17 09:22 Dose: 10 mg Pharmacy Profile Note (Nicotine Patch Removal Note*) 1 note PATCH OFF 2100 [facility] Last Admin: 10/17/17 21:11 Dose: Not Given Quetiapine Fumarate (Seroquel Tab*) 25 mg PO BEDTIME PRN PRN Reason: insomnia Last Admin: 10/14/17 20:33 Dose: 25 mg Quetiapine Fumarate (Seroquel Xr Tab*) 50 mg PO DAILY@17 [facility] Last Admin: 10/17/17 16:17 Dose: 50 mg Timolol Maleate (Timoptic 0.5% Opth*) 1 drop BOTH EYES BEDTIME [facility] Last Admin: 10/17/17 21:11 Dose: Not Given Tiotropium [place] (Spiriva Cap.Inh*) 1 cap INH DAILY [facility] Last Admin: 10/18/17 09:23 Dose: 1 cap Tramadol HCl (Ultram*) 50 mg PO Q6H PRN PRN Reason: PAIN Last Admin: 10/18/17 09:20 Dose: 50 mg Trazodone HCl (Desyrel Tab*) 50 mg PO BEDTIME PRN PRN Reason: SLEEP Last Admin: 10/17/17 21:07 Dose: 50 mg Vital Signs - 8 hr 10/18/17 10/18/17 10/18/17 07:33 09:20 11:15 Temperature 98.2 F Pulse Rate 83 Respiratory 22 16 16 Rate Blood Pressure 127/60 (mmHg) O2 Sat by Pulse 92 Oximetry 10/18/17 11:16 Temperature Pulse Rate Respiratory 16 Rate Blood Pressure (mmHg) O2 Sat by Pulse Oximetry Oxygen Devices in Use Now: None Appearance: 76 yo female sitting up at at table A+O in NAD, friendly, appropriate Ears/Nose/Mouth/Throat: Mucous Membranes Moist Extremities: - - is able to do full ROM on her own, strength 5/5 throughout Neurological: Alert and Oriented x 3, NL Sensation Nutrition: Taking PO's Result Diagrams: 10/14/17 17:57 10/14/17 17:57 Microbiology and Other Data: Microbiology 09/12/17 14:30 Urine Culture - Final Urine Assess/Plan/Problems-Billing Assessment: Ms. Trotter is a 76 yo female with schizoaffective disorder and bipolar and hx of R breast cancer s/p mastectomy who c/o right axillary and upper chest wall tenderness. - Patient Problems (1) Tenderness of left axilla Comment: - suspect osteoarthritis of the right shoulder. She has a negative chest ultrasound, no noted mass on exam or u/s. Right shoulder xray shows significant osteoarthrtitis. Discussed with patient she may benefit form a outpatient ortho consult, possible steroid injection and/or PT. Today she reports improvement and appears to be in less discomfort. - Switch APAP to scheduled, heat packs, Tramadol prn. (2) DVT prophylaxis Comment: ambulation (3) Full code status Status and Disposition: inpatient [facility]. Hospital Medicine will sign off for now. If the patient has increased right shoulder pain consider Ortho consult. Today she appears improved , will continue conservative treatment at this time.
--- NOTE | 2017-10-18 15:47 | PN ---
Subjective - Subjective Date of Service: 10/18/17 Service Type: 07170 Hosp care 15 min low complexity Subjective: Was on the milieu happily sitting in the groups. Reports that she was doing fine and not experiencing any side effects from her reduced amount of meds. She is looking forwards to go to [facility] home that she had lived before. Objective - Appearance Appearance: Healthy Appearing Dysmorphic Features: No Hygiene: Normal Grooming: Fairly Well Kept - Behavior Psychomotor Activities: Normal Exhibits Abnormal Movement: No - Attitude and Relatedness Attitude and Relatedness: Appropriate Eye Contact: Good - Speech Quality: Unpressured Latencies: Normal Quantity: Appropriate - Mood Patient's Decription of Mood: "Good" - Affect Observed Affect: Non-labile Affect Consistent with: Euthymia - Thought Process Patient's Thought Process: Coherent, Goal Directed Thought Content: No Passive Wish, No Suicidal Planning, No Homicidal Ideation, No Paranoid Ideation - Sensorium Experiencing Hallucinations: No, Sensorium is Clear Type of Hallucinations: Visual: No, Auditory: No, Command: No - Level of Consciousness Level of Consciousness: Alert Orientation: Yes Intact, Yes Orientated to Time, Yes Orientated to Place, Yes Orientated to Person - Impulse Control Impulse Control: Intact - Insight and Judgement Insight and Judgement: Good - Group Participation Particating in Group Activities: Yes - Medication Management Medication Management Adherence: Yes Assessment - Assessment Merits Inpatient Hospitalization: Consolidate Improvements, Pending Safe DC Plan Inpatient DSM-V Dx: F25.0 Clinical Impression: Still hypomanic and will need more time on the unit. Plan - Plan Treatment Plan: Name: ZAKIYA LESTER Birthdate: 1940 [id number] Continued Medication Management: Continue Outpt Medication Medications: Current Medications Acetaminophen (Tylenol Tab*) 975 mg PO BID [facility] Al Hydrox/Mg Hydrox/Simethicone (Maalox Plus*) 30 ml PO Q4H PRN PRN Reason: INDIGESTION Last Admin: 10/07/17 00:50 Dose: 30 ml Albuterol (Ventolin Hfa Inhaler*) 2 puff INH BEDTIME [facility] Last Admin: 10/17/17 21:10 Dose: 2 puff Albuterol (Ventolin Hfa Inhaler*) 2 puff INH Q4H PRN PRN Reason: SOB/WHEEZING Amlodipine Besylate (Norvasc Tab*) 7.5 mg PO DAILY [facility] Last Admin: 10/18/17 09:23 Dose: 7.5 mg Aspirin (Aspirin Ec Tab*) 81 mg PO DAILY [facility] Last Admin: 10/18/17 09:23 Dose: 81 mg Atorvastatin Calcium (Lipitor*) 20 mg PO BEDTIME [facility] Last Admin: 10/17/17 21:06 Dose: 20 mg Device (Nicotine Mouth Piece*) 1 each INH .USE WITH NICOTROL PRN PRN Reason: CRAVING Last Admin: 09/02/17 16:38 Dose: 1 each Divalproex Sodium (Depakote Er Tab(*)) 500 mg PO BEDTIME [facility] Last Admin: 10/17/17 21:07 Dose: 500 mg Duloxetine HCl (Cymbalta Cap*) 60 mg PO DAILY [facility] Last Admin: 10/18/17 09:22 Dose: 60 mg Lactase (Lactaid Fast Act (Nf)) 3,000 unit PO TID WITH MEALS [facility] Last Admin: 10/18/17 11:30 Dose: Not Given Latanoprost (Xalatan 0.005%*) 1 drop BOTH EYES BEDTIME [facility] Last Admin: 10/17/17 21:11 Dose: Not Given Magnesium Oxide (Magox 400 Tab*) 400 mg PO DAILY [facility] Last Admin: 10/18/17 09:22 Dose: 400 mg Multivitamins/Minerals (Theragran/Minerals Tab*) 1 tab PO DAILY [facility] Last Admin: 10/18/17 09:23 Dose: 1 tab Nicotine (Nicotine Inhaler*) 10 mg INH Q2H PRN PRN Reason: CRAVING Last Admin: 09/04/17 10:42 Dose: 10 mg Nicotine (Nicotine Patch 14 Mg/24 Hr*) 1 patch TRANSDERM DAILY [facility] Last Admin: 10/18/17 09:27 Dose: Not Given Nystatin (Nystatin Cream*) 1 applic TOPICAL BID PRN PRN Reason: YEAST INFECTION Last Admin: 10/05/17 12:12 Dose: 1 apply Omeprazole (Prilosec Cap*) 20 mg PO DAILY [facility] Last Admin: 10/18/17 09:22 Dose: 20 mg Oxybutynin Chloride (Ditropan Xl Tab*) 10 mg PO DAILY [facility] Last Admin: 10/18/17 09:22 Dose: 10 mg Pharmacy Profile Note (Nicotine Patch Removal Note*) 1 note PATCH OFF 2100 [facility] Last Admin: 10/17/17 21:11 Dose: Not Given Quetiapine Fumarate (Seroquel Tab*) 25 mg PO BEDTIME PRN PRN Reason: insomnia Last Admin: 10/14/17 20:33 Dose: 25 mg Quetiapine Fumarate (Seroquel Xr Tab*) 50 mg PO DAILY@17 [facility] Last Admin: 10/17/17 16:17 Dose: 50 mg Timolol Maleate (Timoptic 0.5% Opth*) 1 drop BOTH EYES BEDTIME [facility] Last Admin: 10/17/17 21:11 Dose: Not Given Tiotropium [place] (Spiriva Cap.Inh*) 1 cap INH DAILY [facility] Last Admin: 10/18/17 09:23 Dose: 1 cap Tramadol HCl (Ultram*) 50 mg PO Q6H PRN PRN Reason: PAIN Last Admin: 10/18/17 09:20 Dose: 50 mg Trazodone HCl (Desyrel Tab*) 50 mg PO BEDTIME PRN PRN Reason: SLEEP Last Admin: 10/17/17 21:07 Dose: 50 mg - Discharge Plan Discharge Plan: Outpatient Follow Up Outpatient Program: [facility]
[2017-10-18] MEDS: QUEtiapine XR TAB* 50 MG PO SCH (17:38)
[2017-10-18] MEDS: Acetaminophen TAB* 325 MG PO SCH (23:13)
[2017-10-18] MEDS: Albuterol HFA INHALER* 8 gm MDI INH SCH (23:13)
[2017-10-18] MEDS: Latanoprost 0.005%* 2.5 ml BTL BOTH EYES SCH (23:14)
[2017-10-18] MEDS: Divalproex ER TAB(*) 500 MG PO SCH (23:14)
[2017-10-18] MEDS: Atorvastatin* 20 MG TAB PO SCH (23:14)
[2017-10-18] MEDS: Nicotine Patch Removal NOTE PATCH OFF SCH (23:14)
[2017-10-18] MEDS: Timolol 0.5% OPTH.SOL* BTL BOTH EYES SCH (23:14)
[2017-10-19] MEDS: Tiotropium CAP.INH* CAP.INH/18 MCG (USE ORDER SET !) INH SCH (11:26)
[2017-10-19] MEDS: Acetaminophen TAB* 325 MG PO SCH ×2 (11:27→22:07)
[2017-10-19] MEDS: amLODIPine TAB* 5 MG PO SCH (11:29)
[2017-10-19] MEDS: Omeprazole CAP* 20 MG PO SCH (11:29)
[2017-10-19] MEDS: DULoxetine DR CAP* 60 MG CAP.DR PO SCH (11:29)
[2017-10-19] MEDS: Magnesium Oxide TAB* 400 MG PO SCH (11:29)
[2017-10-19] MEDS: Multivitamins/Minerals TAB PO SCH (11:29)
[2017-10-19] MEDS: Aspirin EC TAB* 81 MG TAB.EC PO SCH (11:29)
[2017-10-19] MEDS: Oxybutynin XL TAB* 5 MG PO SCH (11:30)
[2017-10-19] MEDS: LACTASE ENZYME 3000 UNIT PO SCH ×3 (11:31→17:03)
[2017-10-19] MEDS: traMADol TAB* 50 MG PO PRN ×2 (11:32→19:36)
[2017-10-19] MEDS: Nicotine PATCH 14 MG/24 HR* PATCH TRANSDERM SCH (11:35)
--- NOTE | 2017-10-19 12:02 | PN ---
Subjective - Subjective Subjective: Psychiatric Attending Progress Note: much less sedated since reducing psychotropic medications continues to await for bed to open up at transitional living [facility] in [place]. Objective - Appearance Appearance: Obese Dysmorphic Features: No Hygiene: Normal Grooming: Disheveled - Behavior Psychomotor Activities: Normal Exhibits Abnormal Movement: No - Attitude and Relatedness Attitude and Relatedness: Needy Eye Contact: Fair - Speech Quality: Unpressured Latencies: Normal Quantity: Appropriate - Mood Patient's Decription of Mood: "Anxious" - Affect Observed Affect: Good Affect Consistent with: Euphoria - Thought Process Patient's Thought Process: Coherent Thought Content: No Passive Wish, No Suicidal Planning, No Homicidal Ideation, No Paranoid Ideation - Sensorium Experiencing Hallucinations: No, Sensorium is Clear Type of Hallucinations: Visual: No, Auditory: No, Command: No - Level of Consciousness Level of Consciousness: Alert Orientation: Yes Orientated to Time, Yes Orientated to Place, Yes Orientated to Person, No Intact - Impulse Control Impulse Control: Intact - Insight and Judgement Insight and Judgement: Fair - Group Participation Particating in Group Activities: Yes - Medication Management Medication Management Adherence: Yes Assessment - Assessment Clinical Impression: schizoaffective disorder bipolar type. current episode unspecified patient is currently euthymic. She has baseline grandiose belief that she is writing a novel but is not preoccupied all day long with this belief. Her affect is full range to expansive. She has not exhibited irritability, aggression, or disruptive behavior since being admitted to out behavioral health unit 7 weeks ago. She is medication compliant. She is awaiting placement Plan - Plan Treatment Plan: Patient is much less sedated on lower dosage of depakote and seroquel and discontinuation of gabapentin Continue medication regimen unchanged. Medications: Current Medications Acetaminophen (Tylenol Tab*) 975 mg PO BID [facility] Last Admin: 10/19/17 11:27 Dose: 975 mg Al Hydrox/Mg Hydrox/Simethicone (Maalox Plus*) 30 ml PO Q4H PRN PRN Reason: INDIGESTION Last Admin: 10/07/17 00:50 Dose: 30 ml Albuterol (Ventolin Hfa Inhaler*) 2 puff INH BEDTIME [facility] Last Admin: 10/18/17 23:13 Dose: Not Given Albuterol (Ventolin Hfa Inhaler*) 2 puff INH Q4H PRN PRN Reason: SOB/WHEEZING Amlodipine Besylate (Norvasc Tab*) 7.5 mg PO DAILY [facility] Last Admin: 10/19/17 11:29 Dose: 7.5 mg Aspirin (Aspirin Ec Tab*) 81 mg PO DAILY [facility] Last Admin: 10/19/17 11:29 Dose: 81 mg Atorvastatin Calcium (Lipitor*) 20 mg PO BEDTIME [facility] Last Admin: 10/18/17 23:14 Dose: Not Given Device (Nicotine Mouth Piece*) 1 each INH .USE WITH NICOTROL PRN PRN Reason: CRAVING Last Admin: 09/02/17 16:38 Dose: 1 each Divalproex Sodium (Depakote Er Tab(*)) 500 mg PO BEDTIME [facility] Last Admin: 10/18/17 23:14 Dose: Not Given Duloxetine HCl (Cymbalta Cap*) 60 mg PO DAILY [facility] Last Admin: 10/19/17 11:29 Dose: 60 mg Lactase (Lactaid Fast Act (Nf)) 3,000 unit PO TID WITH MEALS [facility] Last Admin: 10/19/17 11:31 Dose: 3,000 unit Latanoprost (Xalatan 0.005%*) 1 drop BOTH EYES BEDTIME [facility] Last Admin: 10/18/17 23:14 Dose: Not Given Magnesium Oxide (Magox 400 Tab*) 400 mg PO DAILY [facility] Last Admin: 10/19/17 11:29 Dose: 400 mg Multivitamins/Minerals (Theragran/Minerals Tab*) 1 tab PO DAILY [facility] Last Admin: 10/19/17 11:29 Dose: 1 tab Nicotine (Nicotine Inhaler*) 10 mg INH Q2H PRN PRN Reason: CRAVING Last Admin: 09/04/17 10:42 Dose: 10 mg Nicotine (Nicotine Patch 14 Mg/24 Hr*) 1 patch TRANSDERM DAILY [facility] Last Admin: 10/19/17 11:35 Dose: Not Given Nystatin (Nystatin Cream*) 1 applic TOPICAL BID PRN PRN Reason: YEAST INFECTION Last Admin: 10/05/17 12:12 Dose: 1 apply Omeprazole (Prilosec Cap*) 20 mg PO DAILY [facility] Last Admin: 10/19/17 11:29 Dose: 20 mg Oxybutynin Chloride (Ditropan Xl Tab*) 10 mg PO DAILY [facility] Last Admin: 10/19/17 11:30 Dose: 10 mg Pharmacy Profile Note (Nicotine Patch Removal Note*) 1 note PATCH OFF 2100 [facility] Last Admin: 10/18/17 23:14 Dose: Not Given Quetiapine Fumarate (Seroquel Tab*) 25 mg PO BEDTIME PRN PRN Reason: insomnia Last Admin: 10/14/17 20:33 Dose: 25 mg Quetiapine Fumarate (Seroquel Xr Tab*) 50 mg PO DAILY@17 [facility] Last Admin: 10/18/17 17:38 Dose: 50 mg Timolol Maleate (Timoptic 0.5% Opth*) 1 drop BOTH EYES BEDTIME [facility] Last Admin: 10/18/17 23:14 Dose: Not Given Tiotropium [place] (Spiriva Cap.Inh*) 1 cap INH DAILY [facility] Last Admin: 10/19/17 11:26 Dose: 1 cap Tramadol HCl (Ultram*) 50 mg PO Q6H PRN PRN Reason: PAIN Last Admin: 10/19/17 11:32 Dose: 50 mg Trazodone HCl (Desyrel Tab*) 50 mg PO BEDTIME PRN PRN Reason: SLEEP Last Admin: 10/17/17 21:07 Dose: 50 mg
[2017-10-19] MEDS: QUEtiapine XR TAB* 50 MG PO SCH (17:03)
[2017-10-19] MEDS: Nicotine Patch Removal NOTE PATCH OFF SCH (22:05)
[2017-10-19] MEDS: Divalproex ER TAB(*) 500 MG PO SCH (22:07)
[2017-10-19] MEDS: Albuterol HFA INHALER* 8 gm MDI INH SCH (22:07)
[2017-10-19] MEDS: Atorvastatin* 20 MG TAB PO SCH (22:08)
[2017-10-19] MEDS: QUEtiapine TAB* 25 MG PO PRN (22:09)
[2017-10-19] MEDS: Timolol 0.5% OPTH.SOL* BTL BOTH EYES SCH (22:11)
[2017-10-19] MEDS: Latanoprost 0.005%* 2.5 ml BTL BOTH EYES SCH (22:11)
[2017-10-20] MEDS: Acetaminophen TAB* 325 MG PO SCH ×2 (09:53→21:32)
[2017-10-20] MEDS: LACTASE ENZYME 3000 UNIT PO SCH ×4 (09:54→16:51)
[2017-10-20] MEDS: Tiotropium CAP.INH* CAP.INH/18 MCG (USE ORDER SET !) INH SCH (09:54)
[2017-10-20] MEDS: traMADol TAB* 50 MG PO PRN (09:55)
[2017-10-20] MEDS: Oxybutynin XL TAB* 5 MG PO SCH (09:55)
[2017-10-20] MEDS: Aspirin EC TAB* 81 MG TAB.EC PO SCH (09:55)
[2017-10-20] MEDS: Multivitamins/Minerals TAB PO SCH (09:56)
[2017-10-20] MEDS: Magnesium Oxide TAB* 400 MG PO SCH (09:56)
[2017-10-20] MEDS: amLODIPine TAB* 5 MG PO SCH (09:56)
[2017-10-20] MEDS: Omeprazole CAP* 20 MG PO SCH (09:58)
[2017-10-20] MEDS: Nicotine PATCH 14 MG/24 HR* PATCH TRANSDERM SCH (09:58)
[2017-10-20] MEDS: DULoxetine DR CAP* 60 MG CAP.DR PO SCH (09:58)
[2017-10-20] MEDS: QUEtiapine XR TAB* 50 MG PO SCH (16:50)
[2017-10-20] MEDS: Albuterol HFA INHALER* 8 gm MDI INH SCH (21:32)
[2017-10-20] MEDS: Divalproex ER TAB(*) 500 MG PO SCH (21:32)
[2017-10-20] MEDS: Atorvastatin* 20 MG TAB PO SCH (21:32)
[2017-10-20] MEDS: Timolol 0.5% OPTH.SOL* BTL BOTH EYES SCH (21:33)
[2017-10-20] MEDS: Latanoprost 0.005%* 2.5 ml BTL BOTH EYES SCH (21:33)
[2017-10-20] MEDS: Nicotine Patch Removal NOTE PATCH OFF SCH (21:33)
--- NOTE | 2017-10-21 10:08 | PN ---
Subjective - Subjective Subjective: Psychiatric Attending Progress Note: no complaints. slept well mood has been euthymic cooperative and respectful to staff and other patients Objective - Appearance Appearance: Obese Dysmorphic Features: No Hygiene: Normal Grooming: Fairly Well Kept - Behavior Psychomotor Activities: Normal Exhibits Abnormal Movement: No - Attitude and Relatedness Attitude and Relatedness: Cooperative Eye Contact: Fair - Speech Quality: Unpressured Latencies: Normal Quantity: Appropriate - Mood Patient's Decription of Mood: "Fine" - Affect Observed Affect: Non-labile - Thought Process Patient's Thought Process: Coherent Thought Content: No Passive Wish, No Suicidal Planning, No Homicidal Ideation, No Paranoid Ideation - Sensorium Type of Hallucinations: Visual: No, Auditory: No, Command: No - Level of Consciousness Level of Consciousness: Alert Orientation: Yes Intact, Yes Orientated to Time, Yes Orientated to Place, Yes Orientated to Person - Impulse Control Impulse Control: Intact - Insight and Judgement Insight and Judgement: Fair - Group Participation Particating in Group Activities: Yes - Medication Management Medication Management Adherence: Yes Assessment - Assessment Inpatient DSM-V Dx: F25.0 Clinical Impression: schizoaffective disorder bipolar type. current episode unspecified patient is currently euthymic. She has baseline grandiose belief that she is writing a novel but is not preoccupied all day long with this belief. Her affect is full range to expansive. She has not exhibited irritability, aggression, or disruptive behavior since being admitted to out behavioral health unit 7 weeks ago. She is medication compliant. She is awaiting placement Plan - Plan Treatment Plan: Patient is much less sedated on lower dosage of depakote and seroquel and discontinuation of gabapentin Continue medication regimen unchanged. Medications: Current Medications Acetaminophen (Tylenol Tab*) 975 mg PO BID [facility] Last Admin: 10/20/17 21:32 Dose: 975 mg Al Hydrox/Mg Hydrox/Simethicone (Maalox Plus*) 30 ml PO Q4H PRN PRN Reason: INDIGESTION Last Admin: 10/07/17 00:50 Dose: 30 ml Albuterol (Ventolin Hfa Inhaler*) 2 puff INH BEDTIME [facility] Last Admin: 10/20/17 21:32 Dose: Not Given Albuterol (Ventolin Hfa Inhaler*) 2 puff INH Q4H PRN PRN Reason: SOB/WHEEZING Amlodipine Besylate (Norvasc Tab*) 7.5 mg PO DAILY [facility] Last Admin: 10/20/17 09:56 Dose: 7.5 mg Aspirin (Aspirin Ec Tab*) 81 mg PO DAILY [facility] Last Admin: 10/20/17 09:55 Dose: 81 mg Atorvastatin Calcium (Lipitor*) 20 mg PO BEDTIME [facility] Last Admin: 10/20/17 21:32 Dose: 20 mg Device (Nicotine Mouth Piece*) 1 each INH .USE WITH NICOTROL PRN PRN Reason: CRAVING Last Admin: 09/02/17 16:38 Dose: 1 each Divalproex Sodium (Depakote Er Tab(*)) 500 mg PO BEDTIME [facility] Last Admin: 10/20/17 21:32 Dose: 500 mg Duloxetine HCl (Cymbalta Cap*) 60 mg PO DAILY [facility] Last Admin: 10/20/17 09:58 Dose: 60 mg Lactase (Lactaid Fast Act (Nf)) 3,000 unit PO TID WITH MEALS [facility] Last Admin: 10/20/17 16:51 Dose: 3,000 unit Latanoprost (Xalatan 0.005%*) 1 drop BOTH EYES BEDTIME [facility] Last Admin: 10/20/17 21:33 Dose: Not Given Magnesium Oxide (Magox 400 Tab*) 400 mg PO DAILY [facility] Last Admin: 10/20/17 09:56 Dose: 400 mg Multivitamins/Minerals (Theragran/Minerals Tab*) 1 tab PO DAILY [facility] Last Admin: 10/20/17 09:56 Dose: 1 tab Nicotine (Nicotine Inhaler*) 10 mg INH Q2H PRN PRN Reason: CRAVING Last Admin: 09/04/17 10:42 Dose: 10 mg Nicotine (Nicotine Patch 14 Mg/24 Hr*) 1 patch TRANSDERM DAILY [facility] Last Admin: 10/20/17 09:58 Dose: Not Given Nystatin (Nystatin Cream*) 1 applic TOPICAL BID PRN PRN Reason: YEAST INFECTION Last Admin: 10/05/17 12:12 Dose: 1 apply Omeprazole (Prilosec Cap*) 20 mg PO DAILY [facility] Last Admin: 10/20/17 09:58 Dose: 20 mg Oxybutynin Chloride (Ditropan Xl Tab*) 10 mg PO DAILY [facility] Last Admin: 10/20/17 09:55 Dose: 10 mg Pharmacy Profile Note (Nicotine Patch Removal Note*) 1 note PATCH OFF 2100 [facility] Last Admin: 10/20/17 21:33 Dose: Not Given Quetiapine Fumarate (Seroquel Tab*) 25 mg PO BEDTIME PRN PRN Reason: insomnia Last Admin: 10/19/17 22:09 Dose: 25 mg Quetiapine Fumarate (Seroquel Xr Tab*) 50 mg PO DAILY@17 [facility] Last Admin: 10/20/17 16:50 Dose: 50 mg Timolol Maleate (Timoptic 0.5% Opth*) 1 drop BOTH EYES BEDTIME [facility] Last Admin: 10/20/17 21:33 Dose: Not Given Tiotropium [place] (Spiriva Cap.Inh*) 1 cap INH DAILY [facility] Last Admin: 10/20/17 09:54 Dose: 1 cap Tramadol HCl (Ultram*) 50 mg PO Q6H PRN PRN Reason: PAIN Last Admin: 10/20/17 09:55 Dose: 50 mg Trazodone HCl (Desyrel Tab*) 50 mg PO BEDTIME PRN PRN Reason: SLEEP Last Admin: 10/17/17 21:07 Dose: 50 mg
[2017-10-21] MEDS: Oxybutynin XL TAB* 5 MG PO SCH (10:51)
[2017-10-21] MEDS: LACTASE ENZYME 3000 UNIT PO SCH ×3 (10:51→18:27)
[2017-10-21] MEDS: Tiotropium CAP.INH* CAP.INH/18 MCG (USE ORDER SET !) INH SCH (10:51)
[2017-10-21] MEDS: Aspirin EC TAB* 81 MG TAB.EC PO SCH (10:52)
[2017-10-21] MEDS: amLODIPine TAB* 5 MG PO SCH (10:52)
[2017-10-21] MEDS: Multivitamins/Minerals TAB PO SCH (10:52)
[2017-10-21] MEDS: DULoxetine DR CAP* 60 MG CAP.DR PO SCH (10:53)
[2017-10-21] MEDS: Omeprazole CAP* 20 MG PO SCH (10:54)
[2017-10-21] MEDS: Acetaminophen TAB* 325 MG PO SCH ×2 (10:54→20:57)
[2017-10-21] MEDS: Magnesium Oxide TAB* 400 MG PO SCH (10:55)
[2017-10-21] MEDS: traMADol TAB* 50 MG PO PRN (10:55)
[2017-10-21] MEDS: Nicotine PATCH 14 MG/24 HR* PATCH TRANSDERM SCH (11:23)
--- NOTE | 2017-10-21 16:10 | PN ---
[facility]: Group Therapy Note - Service Type Service Type: [id number] Group Psychotherapy - Medication Education Group: Patient was attentive and participatory in group, and remained in good behavioral control. Patient expressed positive insights regarding relevant treatment interventions. Patient stated understanding of material discussed and had appropriate questions.
[2017-10-21] MEDS: QUEtiapine XR TAB* 50 MG PO SCH (18:27)
[2017-10-21] MEDS: Divalproex ER TAB(*) 500 MG PO SCH (20:56)
[2017-10-21] MEDS: Atorvastatin* 20 MG TAB PO SCH (20:57)
[2017-10-21] MEDS: Albuterol HFA INHALER* 8 gm MDI INH SCH (20:58)
[2017-10-21] MEDS: Nicotine Patch Removal NOTE PATCH OFF SCH (20:58)
[2017-10-21] MEDS: Timolol 0.5% OPTH.SOL* BTL BOTH EYES SCH (20:58)
[2017-10-21] MEDS: Latanoprost 0.005%* 2.5 ml BTL BOTH EYES SCH (20:58)
[2017-10-22] MEDS: DULoxetine DR CAP* 60 MG CAP.DR PO SCH (10:43)
[2017-10-22] MEDS: Aspirin EC TAB* 81 MG TAB.EC PO SCH (10:43)
[2017-10-22] MEDS: amLODIPine TAB* 5 MG PO SCH (10:43)
[2017-10-22] MEDS: Multivitamins/Minerals TAB PO SCH (10:43)
[2017-10-22] MEDS: Acetaminophen TAB* 325 MG PO SCH ×2 (10:44→22:18)
[2017-10-22] MEDS: Omeprazole CAP* 20 MG PO SCH (10:45)
[2017-10-22] MEDS: Oxybutynin XL TAB* 5 MG PO SCH (10:45)
[2017-10-22] MEDS: Tiotropium CAP.INH* CAP.INH/18 MCG (USE ORDER SET !) INH SCH (10:46)
[2017-10-22] MEDS: Magnesium Oxide TAB* 400 MG PO SCH (10:46)
[2017-10-22] MEDS: LACTASE ENZYME 3000 UNIT PO SCH ×3 (10:46→16:54)
[2017-10-22] MEDS: Nicotine PATCH 14 MG/24 HR* PATCH TRANSDERM SCH (10:47)
--- NOTE | 2017-10-22 10:49 | PN ---
Subjective - Subjective Subjective: psychiatric progress note no complaints good appetite sleeping well in good behavioral control MSE: mood euthymic affect full range alert and oriented to month and year TP coherent, tangential at times TC not delusional or paranoid, no SI, no hallucinations Impression: schizoaffective d/o stable on ALC Plan: awaiting placement continue medication regimen unchanged Assessment - Assessment Inpatient DSM-V Dx: F25.0 Clinical Impression: schizoaffective disorder bipolar type. current episode unspecified patient is currently euthymic. She has baseline grandiose belief that she is writing a novel but is not preoccupied all day long with this belief. Her affect is full range to expansive. She has not exhibited irritability, aggression, or disruptive behavior since being admitted to out behavioral health unit 7 weeks ago. She is medication compliant. She is awaiting placement Plan - Plan Treatment Plan: Patient is much less sedated on lower dosage of depakote and seroquel and discontinuation of gabapentin Continue medication regimen unchanged. Medications: Current Medications Acetaminophen (Tylenol Tab*) 975 mg PO BID [facility] Last Admin: 10/22/17 10:44 Dose: 975 mg Al Hydrox/Mg Hydrox/Simethicone (Maalox Plus*) 30 ml PO Q4H PRN PRN Reason: INDIGESTION Last Admin: 10/07/17 00:50 Dose: 30 ml Albuterol (Ventolin Hfa Inhaler*) 2 puff INH BEDTIME [facility] Last Admin: 10/21/17 20:58 Dose: Not Given Albuterol (Ventolin Hfa Inhaler*) 2 puff INH Q4H PRN PRN Reason: SOB/WHEEZING Amlodipine Besylate (Norvasc Tab*) 7.5 mg PO DAILY [facility] Last Admin: 10/22/17 10:43 Dose: 7.5 mg Aspirin (Aspirin Ec Tab*) 81 mg PO DAILY [facility] Last Admin: 10/22/17 10:43 Dose: 81 mg Atorvastatin Calcium (Lipitor*) 20 mg PO BEDTIME [facility] Last Admin: 10/21/17 20:57 Dose: 20 mg Device (Nicotine Mouth Piece*) 1 each INH .USE WITH NICOTROL PRN PRN Reason: CRAVING Last Admin: 09/02/17 16:38 Dose: 1 each Divalproex Sodium (Depakote Er Tab(*)) 500 mg PO BEDTIME [facility] Last Admin: 10/21/17 20:56 Dose: 500 mg Duloxetine HCl (Cymbalta Cap*) 60 mg PO DAILY [facility] Last Admin: 10/22/17 10:43 Dose: 60 mg Lactase (Lactaid Fast Act (Nf)) 3,000 unit PO TID WITH MEALS [facility] Last Admin: 10/22/17 10:46 Dose: 3,000 unit Latanoprost (Xalatan 0.005%*) 1 drop BOTH EYES BEDTIME [facility] Last Admin: 10/21/17 20:58 Dose: Not Given Magnesium Oxide (Magox 400 Tab*) 400 mg PO DAILY [facility] Last Admin: 10/22/17 10:46 Dose: 400 mg Multivitamins/Minerals (Theragran/Minerals Tab*) 1 tab PO DAILY [facility] Last Admin: 10/22/17 10:43 Dose: 1 tab Nicotine (Nicotine Inhaler*) 10 mg INH Q2H PRN PRN Reason: CRAVING Last Admin: 09/04/17 10:42 Dose: 10 mg Nicotine (Nicotine Patch 14 Mg/24 Hr*) 1 patch TRANSDERM DAILY [facility] Last Admin: 10/22/17 10:47 Dose: Not Given Nystatin (Nystatin Cream*) 1 applic TOPICAL BID PRN PRN Reason: YEAST INFECTION Last Admin: 10/05/17 12:12 Dose: 1 apply Omeprazole (Prilosec Cap*) 20 mg PO DAILY [facility] Last Admin: 10/22/17 10:45 Dose: 20 mg Oxybutynin Chloride (Ditropan Xl Tab*) 10 mg PO DAILY [facility] Last Admin: 10/22/17 10:45 Dose: 10 mg Pharmacy Profile Note (Nicotine Patch Removal Note*) 1 note PATCH OFF 2100 [facility] Last Admin: 10/21/17 20:58 Dose: Not Given Quetiapine Fumarate (Seroquel Tab*) 25 mg PO BEDTIME PRN PRN Reason: insomnia Last Admin: 10/19/17 22:09 Dose: 25 mg Quetiapine Fumarate (Seroquel Xr Tab*) 50 mg PO DAILY@17 [facility] Last Admin: 10/21/17 18:27 Dose: 50 mg Timolol Maleate (Timoptic 0.5% Opth*) 1 drop BOTH EYES BEDTIME [facility] Last Admin: 10/21/17 20:58 Dose: Not Given Tiotropium [place] (Spiriva Cap.Inh*) 1 cap INH DAILY [facility] Last Admin: 10/22/17 10:46 Dose: 1 cap Tramadol HCl (Ultram*) 50 mg PO Q6H PRN PRN Reason: PAIN Last Admin: 10/21/17 10:55 Dose: 50 mg Trazodone HCl (Desyrel Tab*) 50 mg PO BEDTIME PRN PRN Reason: SLEEP Last Admin: 10/17/17 21:07 Dose: 50 mg
[2017-10-22] MEDS: QUEtiapine XR TAB* 50 MG PO SCH (16:54)
[2017-10-22] MEDS: Divalproex ER TAB(*) 500 MG PO SCH (22:17)
[2017-10-22] MEDS: Atorvastatin* 20 MG TAB PO SCH (22:17)
[2017-10-22] MEDS: Timolol 0.5% OPTH.SOL* BTL BOTH EYES SCH (22:19)
[2017-10-22] MEDS: Latanoprost 0.005%* 2.5 ml BTL BOTH EYES SCH (22:19)
[2017-10-22] MEDS: Nicotine Patch Removal NOTE PATCH OFF SCH (22:19)
[2017-10-22] MEDS: Albuterol HFA INHALER* 8 gm MDI INH SCH (22:21)
[2017-10-23] MEDS: Omeprazole CAP* 20 MG PO SCH (10:34)
[2017-10-23] MEDS: DULoxetine DR CAP* 60 MG CAP.DR PO SCH (10:34)
[2017-10-23] MEDS: Oxybutynin XL TAB* 5 MG PO SCH (10:34)
[2017-10-23] MEDS: Acetaminophen TAB* 325 MG PO SCH ×2 (10:37→21:44)
[2017-10-23] MEDS: amLODIPine TAB* 5 MG PO SCH (10:38)
[2017-10-23] MEDS: Aspirin EC TAB* 81 MG TAB.EC PO SCH (10:38)
[2017-10-23] MEDS: Magnesium Oxide TAB* 400 MG PO SCH (10:39)
[2017-10-23] MEDS: Multivitamins/Minerals TAB PO SCH (10:39)
[2017-10-23] MEDS: LACTASE ENZYME 3000 UNIT PO SCH ×3 (10:39→17:10)
[2017-10-23] MEDS: Nicotine PATCH 14 MG/24 HR* PATCH TRANSDERM SCH (10:39)
[2017-10-23] MEDS: Tiotropium CAP.INH* CAP.INH/18 MCG (USE ORDER SET !) INH SCH (10:40)
[2017-10-23] MEDS: traMADol TAB* 50 MG PO PRN (14:01)
[2017-10-23] MEDS: QUEtiapine XR TAB* 50 MG PO SCH (18:01)
[2017-10-23] MEDS: Atorvastatin* 20 MG TAB PO SCH (21:44)
[2017-10-23] MEDS: Divalproex ER TAB(*) 500 MG PO SCH (21:45)
[2017-10-23] MEDS: Albuterol HFA INHALER* 8 gm MDI INH SCH (21:45)
[2017-10-23] MEDS: Nicotine Patch Removal NOTE PATCH OFF SCH (21:51)
[2017-10-23] MEDS: Latanoprost 0.005%* 2.5 ml BTL BOTH EYES SCH (21:51)
[2017-10-23] MEDS: Timolol 0.5% OPTH.SOL* BTL BOTH EYES SCH (21:51)
[2017-10-24] MEDS: Tiotropium CAP.INH* CAP.INH/18 MCG (USE ORDER SET !) INH SCH (10:30)
[2017-10-24] MEDS: Nicotine PATCH 14 MG/24 HR* PATCH TRANSDERM SCH (10:31)
[2017-10-24] MEDS: LACTASE ENZYME 3000 UNIT PO SCH ×3 (10:38→17:14)
[2017-10-24] MEDS: Oxybutynin XL TAB* 5 MG PO SCH (10:58)
[2017-10-24] MEDS: Omeprazole CAP* 20 MG PO SCH (10:58)
[2017-10-24] MEDS: Acetaminophen TAB* 325 MG PO SCH ×2 (10:58→20:46)
[2017-10-24] MEDS: Multivitamins/Minerals TAB PO SCH (10:58)
[2017-10-24] MEDS: DULoxetine DR CAP* 60 MG CAP.DR PO SCH (10:58)
[2017-10-24] MEDS: Magnesium Oxide TAB* 400 MG PO SCH (10:58)
[2017-10-24] MEDS: Aspirin EC TAB* 81 MG TAB.EC PO SCH (10:58)
[2017-10-24] MEDS: amLODIPine TAB* 5 MG PO SCH (10:58)
[2017-10-24] MEDS: QUEtiapine XR TAB* 50 MG PO SCH (17:14)
[2017-10-24] MEDS: Divalproex ER TAB(*) 500 MG PO SCH (20:45)
[2017-10-24] MEDS: Atorvastatin* 20 MG TAB PO SCH (20:45)
[2017-10-24] MEDS: Nicotine Patch Removal NOTE PATCH OFF SCH (20:46)
[2017-10-24] MEDS: Timolol 0.5% OPTH.SOL* BTL BOTH EYES SCH (20:46)
[2017-10-24] MEDS: Albuterol HFA INHALER* 8 gm MDI INH SCH (20:46)
[2017-10-24] MEDS: Latanoprost 0.005%* 2.5 ml BTL BOTH EYES SCH (20:46)
[2017-10-25] MEDS: LACTASE ENZYME 3000 UNIT PO SCH ×3 (09:37→16:27)
[2017-10-25] MEDS: Tiotropium CAP.INH* CAP.INH/18 MCG (USE ORDER SET !) INH SCH (11:00)
[2017-10-25] MEDS: Omeprazole CAP* 20 MG PO SCH (11:02)
[2017-10-25] MEDS: Multivitamins/Minerals TAB PO SCH (11:02)
[2017-10-25] MEDS: Oxybutynin XL TAB* 5 MG PO SCH (11:03)
[2017-10-25] MEDS: DULoxetine DR CAP* 60 MG CAP.DR PO SCH (11:03)
[2017-10-25] MEDS: Magnesium Oxide TAB* 400 MG PO SCH (11:03)
[2017-10-25] MEDS: amLODIPine TAB* 5 MG PO SCH (11:04)
[2017-10-25] MEDS: Aspirin EC TAB* 81 MG TAB.EC PO SCH (11:04)
[2017-10-25] MEDS: Nicotine PATCH 14 MG/24 HR* PATCH TRANSDERM SCH (11:05)
[2017-10-25] MEDS: Acetaminophen TAB* 325 MG PO SCH (11:07)
--- NOTE | 2017-10-25 12:19 | PN ---
Subjective - Subjective Date of Service: 10/25/17 Service Type: [id number] Hosp care 15 min low complexity Subjective: Bernadette is seen in coverage for Dr. Perry. She is in good spirits and smiles broadly when informing me that she is set for discharge to a nursing facility in [place] on November 03. She denies SI or HI and has no acute complaints. Staff reports indicate that she has been calm and under behavioral control throughout the weekend. Objective - Appearance Appearance: Well Developed/Nourished, Obese Dysmorphic Features: No Hygiene: Normal Grooming: Fairly Well Kept - Behavior Psychomotor Activities: Normal Exhibits Abnormal Movement: No - Attitude and Relatedness Attitude and Relatedness: Cooperative Eye Contact: Good - Speech Quality: Unpressured Latencies: Normal Quantity: Appropriate - Mood Patient's Decription of Mood: "Good" - Affect Observed Affect: Good Affect Consistent with: Euthymia - Thought Process Patient's Thought Process: Coherent Thought Content: No Passive Wish, No Suicidal Planning, No Homicidal Ideation, No Paranoid Ideation - Sensorium Experiencing Hallucinations: No, Sensorium is Clear Type of Hallucinations: Visual: No, Auditory: No, Command: No - Level of Consciousness Level of Consciousness: Alert Orientation: Yes Intact, Yes Orientated to Time, Yes Orientated to Place, Yes Orientated to Person - Impulse Control Impulse Control: Poor - Insight and Judgement Insight and Judgement: Impaired - Group Participation Particating in Group Activities: Yes - Medication Management Medication Management Adherence: Yes Assessment - Assessment Merits Inpatient Hospitalization: Consolidate Improvements, Pending Safe DC Plan Inpatient DSM-V Dx: F25.0 Clinical Impression: 76 y.o. single, white female with a history of schizoaffective disorder, bipolar type, sent by [facility] due to assaultive and agitated behavior towards staff. Plan - Plan Treatment Plan: Name: BERNADETTE LESTER Birthdate: 1940 [id number] The patient is improving on a regimen of Depakote, duloxetine, gabapentin, quetiapine and prn trazodone. PT and OT assessments have been completed and she is pending placement in an assisted living facility somewhere near her family in [place], [place] on November 03 when the bed is open. Continued Medication Management: Continue Outpt Medication Medications: Current Medications Acetaminophen (Tylenol Tab*) 975 mg PO BID [facility] Last Admin: 10/25/17 11:07 Dose: 975 mg Al Hydrox/Mg Hydrox/Simethicone (Maalox Plus*) 30 ml PO Q4H PRN PRN Reason: INDIGESTION Last Admin: 10/07/17 00:50 Dose: 30 ml Albuterol (Ventolin Hfa Inhaler*) 2 puff INH BEDTIME [facility] Last Admin: 10/24/17 20:46 Dose: 2 puff Albuterol (Ventolin Hfa Inhaler*) 2 puff INH Q4H PRN PRN Reason: SOB/WHEEZING Amlodipine Besylate (Norvasc Tab*) 7.5 mg PO DAILY [facility] Last Admin: 10/25/17 11:04 Dose: 7.5 mg Aspirin (Aspirin Ec Tab*) 81 mg PO DAILY [facility] Last Admin: 10/25/17 11:04 Dose: 81 mg Atorvastatin Calcium (Lipitor*) 20 mg PO BEDTIME [facility] Last Admin: 10/24/17 20:45 Dose: 20 mg Device (Nicotine Mouth Piece*) 1 each INH .USE WITH NICOTROL PRN PRN Reason: CRAVING Last Admin: 09/02/17 16:38 Dose: 1 each Divalproex Sodium (Depakote Er Tab(*)) 500 mg PO BEDTIME [facility] Last Admin: 10/24/17 20:45 Dose: 500 mg Duloxetine HCl (Cymbalta Cap*) 60 mg PO DAILY [facility] Last Admin: 10/25/17 11:03 Dose: 60 mg Lactase (Lactaid Fast Act (Nf)) 3,000 unit PO TID WITH MEALS [facility] Last Admin: 10/25/17 11:05 Dose: 3,000 unit Latanoprost (Xalatan 0.005%*) 1 drop BOTH EYES BEDTIME [facility] Last Admin: 10/24/17 20:46 Dose: Not Given Magnesium Oxide (Magox 400 Tab*) 400 mg PO DAILY [facility] Last Admin: 10/25/17 11:03 Dose: 400 mg Multivitamins/Minerals (Theragran/Minerals Tab*) 1 tab PO DAILY [facility] Last Admin: 10/25/17 11:02 Dose: 1 tab Nicotine (Nicotine Inhaler*) 10 mg INH Q2H PRN PRN Reason: CRAVING Last Admin: 09/04/17 10:42 Dose: 10 mg Nicotine (Nicotine Patch 14 Mg/24 Hr*) 1 patch TRANSDERM DAILY [facility] Last Admin: 10/25/17 11:05 Dose: Not Given Nystatin (Nystatin Cream*) 1 applic TOPICAL BID PRN PRN Reason: YEAST INFECTION Last Admin: 10/05/17 12:12 Dose: 1 apply Omeprazole (Prilosec Cap*) 20 mg PO DAILY [facility] Last Admin: 10/25/17 11:02 Dose: 20 mg Oxybutynin Chloride (Ditropan Xl Tab*) 10 mg PO DAILY [facility] Last Admin: 10/25/17 11:03 Dose: 10 mg Pharmacy Profile Note (Nicotine Patch Removal Note*) 1 note PATCH OFF 2100 [facility] Last Admin: 10/24/17 20:46 Dose: Not Given Quetiapine Fumarate (Seroquel Tab*) 25 mg PO BEDTIME PRN PRN Reason: insomnia Last Admin: 10/19/17 22:09 Dose: 25 mg Quetiapine Fumarate (Seroquel Xr Tab*) 50 mg PO DAILY@17 [facility] Last Admin: 10/24/17 17:14 Dose: 50 mg Timolol Maleate (Timoptic 0.5% Opth*) 1 drop BOTH EYES BEDTIME [facility] Last Admin: 10/24/17 20:46 Dose: Not Given Tiotropium [place] (Spiriva Cap.Inh*) 1 cap INH DAILY [facility] Last Admin: 10/25/17 11:00 Dose: 1 cap Tramadol HCl (Ultram*) 50 mg PO Q6H PRN PRN Reason: PAIN Last Admin: 10/23/17 14:01 Dose: 50 mg Trazodone HCl (Desyrel Tab*) 50 mg PO BEDTIME PRN PRN Reason: SLEEP Last Admin: 10/17/17 21:07 Dose: 50 mg - Discharge Plan Discharge Plan: Outpatient Follow Up
[2017-10-25] MEDS: QUEtiapine XR TAB* 50 MG PO SCH (16:27)
[2017-10-26] MEDS: Omeprazole CAP* 20 MG PO SCH (12:10)
[2017-10-26] MEDS: Tiotropium CAP.INH* CAP.INH/18 MCG (USE ORDER SET !) INH SCH (12:10)
[2017-10-26] MEDS: Multivitamins/Minerals TAB PO SCH (12:11)
[2017-10-26] MEDS: LACTASE ENZYME 3000 UNIT PO SCH ×3 (12:11→17:15)
[2017-10-26] MEDS: amLODIPine TAB* 5 MG PO SCH (12:11)
[2017-10-26] MEDS: Acetaminophen TAB* 325 MG PO SCH ×3 (12:12→20:21)
[2017-10-26] MEDS: Magnesium Oxide TAB* 400 MG PO SCH (12:13)
[2017-10-26] MEDS: DULoxetine DR CAP* 60 MG CAP.DR PO SCH (12:13)
[2017-10-26] MEDS: Oxybutynin XL TAB* 5 MG PO SCH (12:13)
[2017-10-26] MEDS: traMADol TAB* 50 MG PO PRN (12:14)
[2017-10-26] MEDS: Aspirin EC TAB* 81 MG TAB.EC PO SCH (12:14)
[2017-10-26] MEDS: Nicotine PATCH 14 MG/24 HR* PATCH TRANSDERM SCH (12:15)
[2017-10-26] MEDS: QUEtiapine XR TAB* 50 MG PO SCH (17:15)
[2017-10-26] MEDS: Atorvastatin* 20 MG TAB PO SCH ×2 (20:23)
[2017-10-26] MEDS: Divalproex ER TAB(*) 500 MG PO SCH ×2 (20:23)
[2017-10-26] MEDS: Albuterol HFA INHALER* 8 gm MDI INH SCH ×2 (20:26)
[2017-10-26] MEDS: Nicotine Patch Removal NOTE PATCH OFF SCH ×2 (20:28)
[2017-10-26] MEDS: Timolol 0.5% OPTH.SOL* BTL BOTH EYES SCH ×2 (20:28)
[2017-10-26] MEDS: Latanoprost 0.005%* 2.5 ml BTL BOTH EYES SCH ×2 (20:28)
[2017-10-27] MEDS: Oxybutynin XL TAB* 5 MG PO SCH (10:06)
[2017-10-27] MEDS: LACTASE ENZYME 3000 UNIT PO SCH ×3 (10:06→17:02)
[2017-10-27] MEDS: Acetaminophen TAB* 325 MG PO SCH ×2 (10:07→20:23)
[2017-10-27] MEDS: Multivitamins/Minerals TAB PO SCH (10:07)
[2017-10-27] MEDS: Omeprazole CAP* 20 MG PO SCH (10:07)
[2017-10-27] MEDS: Magnesium Oxide TAB* 400 MG PO SCH (10:07)
[2017-10-27] MEDS: DULoxetine DR CAP* 60 MG CAP.DR PO SCH (10:07)
[2017-10-27] MEDS: Tiotropium CAP.INH* CAP.INH/18 MCG (USE ORDER SET !) INH SCH (10:07)
[2017-10-27] MEDS: Aspirin EC TAB* 81 MG TAB.EC PO SCH (10:07)
[2017-10-27] MEDS: amLODIPine TAB* 5 MG PO SCH (10:08)
[2017-10-27] MEDS: Nicotine PATCH 14 MG/24 HR* PATCH TRANSDERM SCH (10:10)
--- NOTE | 2017-10-27 10:43 | PN ---
Subjective - Subjective Date of Service: 10/27/17 Subjective: Psychiatric Attending Progress Note: Bernadette continues to look forward to her discharge on the 03 of November She remains in excellent behavioral control. She denies suicidal and homicidal thoughts or impulses. She attends groups during the day and takes a daytime nap as well. She has a good appetite and has been sleeping throught the night. She is no longer having excess sedation since lowering her psychotropic medications. Objective - Appearance Appearance: Well Developed/Nourished Dysmorphic Features: No Hygiene: Normal Grooming: Fairly Well Kept - Behavior Psychomotor Activities: Normal Exhibits Abnormal Movement: No - Attitude and Relatedness Attitude and Relatedness: Cooperative Eye Contact: Good - Speech Quality: Unpressured Latencies: Normal Quantity: Appropriate - Mood Patient's Decription of Mood: "Good" - Affect Observed Affect: Good Affect Consistent with: Euthymia - Thought Process Patient's Thought Process: Coherent, Tangential Thought Content: No Passive Wish, No Suicidal Planning, No Homicidal Ideation, No Paranoid Ideation - Sensorium Type of Hallucinations: Visual: No, Auditory: No, Command: No - Level of Consciousness Level of Consciousness: Alert Orientation: Yes Intact - year and month only, Yes Orientated to Time, Yes Orientated to Place, Yes Orientated to Person - Impulse Control Impulse Control: Intact - Insight and Judgement Insight and Judgement: Fair - Group Participation Particating in Group Activities: Yes - Medication Management Medication Management Adherence: Yes Assessment - Assessment Inpatient DSM-V Dx: F25.0 Clinical Impression: schizoaffective disorder bipolar type. current episode unspecified patient is currently euthymic. She has baseline grandiose belief that she is writing a novel but is not preoccupied all day long with this belief. Her affect is full range to expansive. She has not exhibited irritability, aggression, or disruptive behavior since being admitted to out behavioral health unit 7 weeks ago. She is medication compliant. She is awaiting placement Plan - Plan Treatment Plan: Plan: Continue medication regimen unchanged. To be transferred to transitional living program on 11/03/2017 Medications: Current Medications Acetaminophen (Tylenol Tab*) 975 mg PO BID [facility] Last Admin: 10/27/17 10:07 Dose: 975 mg Al Hydrox/Mg Hydrox/Simethicone (Maalox Plus*) 30 ml PO Q4H PRN PRN Reason: INDIGESTION Last Admin: 10/07/17 00:50 Dose: 30 ml Albuterol (Ventolin Hfa Inhaler*) 2 puff INH BEDTIME [facility] Last Admin: 10/26/17 20:26 Dose: 2 puff Albuterol (Ventolin Hfa Inhaler*) 2 puff INH Q4H PRN PRN Reason: SOB/WHEEZING Amlodipine Besylate (Norvasc Tab*) 7.5 mg PO DAILY [facility] Last Admin: 10/27/17 10:08 Dose: 7.5 mg Aspirin (Aspirin Ec Tab*) 81 mg PO DAILY [facility] Last Admin: 10/27/17 10:07 Dose: 81 mg Atorvastatin Calcium (Lipitor*) 20 mg PO BEDTIME [facility] Last Admin: 10/26/17 20:23 Dose: 20 mg Device (Nicotine Mouth Piece*) 1 each INH .USE WITH NICOTROL PRN PRN Reason: CRAVING Last Admin: 09/02/17 16:38 Dose: 1 each Divalproex Sodium (Depakote Er Tab(*)) 500 mg PO BEDTIME [facility] Last Admin: 10/26/17 20:23 Dose: 500 mg Duloxetine HCl (Cymbalta Cap*) 60 mg PO DAILY [facility] Last Admin: 10/27/17 10:07 Dose: 60 mg Lactase (Lactaid Fast Act (Nf)) 3,000 unit PO TID WITH MEALS [facility] Last Admin: 10/27/17 10:06 Dose: Not Given Latanoprost (Xalatan 0.005%*) 1 drop BOTH EYES BEDTIME [facility] Last Admin: 10/26/17 20:28 Dose: Not Given Magnesium Oxide (Magox 400 Tab*) 400 mg PO DAILY [facility] Last Admin: 10/27/17 10:07 Dose: 400 mg Multivitamins/Minerals (Theragran/Minerals Tab*) 1 tab PO DAILY [facility] Last Admin: 10/27/17 10:07 Dose: 1 tab Nicotine (Nicotine Inhaler*) 10 mg INH Q2H PRN PRN Reason: CRAVING Last Admin: 09/04/17 10:42 Dose: 10 mg Nicotine (Nicotine Patch 14 Mg/24 Hr*) 1 patch TRANSDERM DAILY [facility] Last Admin: 10/27/17 10:10 Dose: Not Given Nystatin (Nystatin Cream*) 1 applic TOPICAL BID PRN PRN Reason: YEAST INFECTION Last Admin: 05/15/18 12:12 Dose: 1 apply Omeprazole (Prilosec Cap*) 20 mg PO DAILY [facility] Last Admin: 10/27/17 10:07 Dose: 20 mg Oxybutynin Chloride (Ditropan Xl Tab*) 10 mg PO DAILY [facility] Last Admin: 10/27/17 10:06 Dose: 10 mg Pharmacy Profile Note (Nicotine Patch Removal Note*) 1 note PATCH OFF 2100 [facility] Last Admin: 10/26/17 20:28 Dose: Not Given Quetiapine Fumarate (Seroquel Tab*) 25 mg PO BEDTIME PRN PRN Reason: insomnia Last Admin: 10/19/17 22:09 Dose: 25 mg Quetiapine Fumarate (Seroquel Xr Tab*) 50 mg PO DAILY@17 [facility] Last Admin: 10/26/17 17:15 Dose: 50 mg Timolol Maleate (Timoptic 0.5% Opth*) 1 drop BOTH EYES BEDTIME [facility] Last Admin: 10/26/17 20:28 Dose: Not Given Tiotropium [place] (Spiriva Cap.Inh*) 1 cap INH DAILY [facility] Last Admin: 10/27/17 10:07 Dose: 1 cap Tramadol HCl (Ultram*) 50 mg PO Q6H PRN PRN Reason: PAIN Last Admin: 10/26/17 12:14 Dose: 50 mg Trazodone HCl (Desyrel Tab*) 50 mg PO BEDTIME PRN PRN Reason: SLEEP Last Admin: 10/17/17 21:07 Dose: 50 mg
[2017-10-27] MEDS: traMADol TAB* 50 MG PO PRN (17:03)
[2017-10-27] MEDS: QUEtiapine XR TAB* 50 MG PO SCH (17:03)
[2017-10-27] MEDS: Divalproex ER TAB(*) 500 MG PO SCH (20:22)
[2017-10-27] MEDS: Atorvastatin* 20 MG TAB PO SCH (20:22)
[2017-10-27] MEDS: Timolol 0.5% OPTH.SOL* BTL BOTH EYES SCH (20:26)
[2017-10-27] MEDS: Nicotine Patch Removal NOTE PATCH OFF SCH (20:26)
[2017-10-27] MEDS: Latanoprost 0.005%* 2.5 ml BTL BOTH EYES SCH (20:26)
[2017-10-27] MEDS: Albuterol HFA INHALER* 8 gm MDI INH SCH (20:26)
[2017-10-28] MEDS: LACTASE ENZYME 3000 UNIT PO SCH ×3 (11:29→16:53)
[2017-10-28] MEDS: Nicotine PATCH 14 MG/24 HR* PATCH TRANSDERM SCH (11:30)
[2017-10-28] MEDS: amLODIPine TAB* 5 MG PO SCH (11:46)
[2017-10-28] MEDS: Acetaminophen TAB* 325 MG PO SCH ×2 (11:46→21:02)
[2017-10-28] MEDS: Magnesium Oxide TAB* 400 MG PO SCH (11:47)
[2017-10-28] MEDS: Multivitamins/Minerals TAB PO SCH (11:47)
[2017-10-28] MEDS: Omeprazole CAP* 20 MG PO SCH (11:47)
[2017-10-28] MEDS: DULoxetine DR CAP* 60 MG CAP.DR PO SCH (11:47)
[2017-10-28] MEDS: Aspirin EC TAB* 81 MG TAB.EC PO SCH (11:47)
[2017-10-28] MEDS: Oxybutynin XL TAB* 5 MG PO SCH (11:48)
[2017-10-28] MEDS: Tiotropium CAP.INH* CAP.INH/18 MCG (USE ORDER SET !) INH SCH (11:48)
--- NOTE | 2017-10-28 16:20 | PN ---
[facility]: Group Therapy Note - Service Type Service Type: [id number] Group Psychotherapy - Medication Education Group: Patient attended group and presented with flat affect that did not vary with discussion. Although responsive to direct prompts to respond to questions, patient did not engage in spontaneous conversation.
[2017-10-28] MEDS: QUEtiapine XR TAB* 50 MG PO SCH (16:53)
[2017-10-28] MEDS: Atorvastatin* 20 MG TAB PO SCH (21:03)
[2017-10-28] MEDS: Divalproex ER TAB(*) 500 MG PO SCH (21:03)
[2017-10-28] MEDS: Albuterol HFA INHALER* 8 gm MDI INH SCH (21:03)
[2017-10-28] MEDS: Nicotine Patch Removal NOTE PATCH OFF SCH (21:04)
[2017-10-28] MEDS: Timolol 0.5% OPTH.SOL* BTL BOTH EYES SCH (21:04)
[2017-10-28] MEDS: Latanoprost 0.005%* 2.5 ml BTL BOTH EYES SCH (21:04)
[2017-10-29] MEDS: traMADol TAB* 50 MG PO PRN ×2 (07:29→13:08)
[2017-10-29] MEDS: LACTASE ENZYME 3000 UNIT PO SCH ×3 (11:01→16:46)
[2017-10-29] MEDS: Magnesium Oxide TAB* 400 MG PO SCH (13:03)
[2017-10-29] MEDS: Omeprazole CAP* 20 MG PO SCH (13:03)
[2017-10-29] MEDS: DULoxetine DR CAP* 60 MG CAP.DR PO SCH (13:03)
[2017-10-29] MEDS: Oxybutynin XL TAB* 5 MG PO SCH (13:04)
[2017-10-29] MEDS: Acetaminophen TAB* 325 MG PO SCH ×2 (13:04→21:43)
[2017-10-29] MEDS: Multivitamins/Minerals TAB PO SCH (13:05)
[2017-10-29] MEDS: Aspirin EC TAB* 81 MG TAB.EC PO SCH (13:05)
[2017-10-29] MEDS: amLODIPine TAB* 5 MG PO SCH (13:05)
[2017-10-29] MEDS: Nicotine PATCH 14 MG/24 HR* PATCH TRANSDERM SCH (13:06)
[2017-10-29] MEDS: Tiotropium CAP.INH* CAP.INH/18 MCG (USE ORDER SET !) INH SCH (13:06)
--- NOTE | 2017-10-29 14:36 | PN ---
Subjective - Subjective Subjective: Psychiatric Attending Progress Note: patient offers no somatic comlaints. She remains in good behavioral control. She denies suicidal or homicidal ideation. she has good appetite. she looks forward to discharge to transitional living on November 03, 2017 Objective - Appearance Appearance: Well Developed/Nourished Dysmorphic Features: No Hygiene: Normal Grooming: Fairly Well Kept - Behavior Psychomotor Activities: Normal Exhibits Abnormal Movement: No - Attitude and Relatedness Attitude and Relatedness: Cooperative - Speech Quality: Unpressured Latencies: Normal Quantity: Appropriate - Mood Patient's Decription of Mood: "Good" - Affect Observed Affect: Expansive Affect Consistent with: Euthymia - Thought Process Patient's Thought Process: Coherent Thought Content: No Passive Wish, No Suicidal Planning, No Homicidal Ideation, No Paranoid Ideation - Sensorium Type of Hallucinations: Visual: No, Auditory: No, Command: No - Level of Consciousness Orientation: Yes Intact, Yes Orientated to Time, Yes Orientated to Place, Yes Orientated to Person - Impulse Control Impulse Control: Intact - Insight and Judgement Insight and Judgement: Fair - Group Participation Particating in Group Activities: Yes - Medication Management Medication Management Adherence: Yes Assessment - Assessment Inpatient DSM-V Dx: F25.0 Clinical Impression: schizoaffective disorder bipolar type. current episode unspecified patient is currently euthymic. She has baseline grandiose belief that she is writing a novel but is not preoccupied all day long with this belief. Her affect is full range to expansive. She has not exhibited irritability, aggression, or disruptive behavior since being admitted to out behavioral health unit 7 weeks ago. She is medication compliant. She is awaiting placement Plan - Plan Treatment Plan: Plan: Continue medication regimen unchanged. To be transferred to transitional living program on 11/03/2017 Medications: Current Medications Acetaminophen (Tylenol Tab*) 975 mg PO BID [facility] Last Admin: 10/29/17 13:04 Dose: 975 mg Al Hydrox/Mg Hydrox/Simethicone (Maalox Plus*) 30 ml PO Q4H PRN PRN Reason: INDIGESTION Last Admin: 10/07/17 00:50 Dose: 30 ml Albuterol (Ventolin Hfa Inhaler*) 2 puff INH BEDTIME [facility] Last Admin: 10/28/17 21:03 Dose: 2 puff Albuterol (Ventolin Hfa Inhaler*) 2 puff INH Q4H PRN PRN Reason: SOB/WHEEZING Amlodipine Besylate (Norvasc Tab*) 7.5 mg PO DAILY [facility] Last Admin: 10/29/17 13:05 Dose: 7.5 mg Aspirin (Aspirin Ec Tab*) 81 mg PO DAILY [facility] Last Admin: 10/29/17 13:05 Dose: 81 mg Atorvastatin Calcium (Lipitor*) 20 mg PO BEDTIME [facility] Last Admin: 10/28/17 21:03 Dose: 20 mg Device (Nicotine Mouth Piece*) 1 each INH .USE WITH NICOTROL PRN PRN Reason: CRAVING Last Admin: 09/02/17 16:38 Dose: 1 each Divalproex Sodium (Depakote Er Tab(*)) 500 mg PO BEDTIME [facility] Last Admin: 10/28/17 21:03 Dose: 500 mg Duloxetine HCl (Cymbalta Cap*) 60 mg PO DAILY [facility] Last Admin: 10/29/17 13:03 Dose: 60 mg Lactase (Lactaid Fast Act (Nf)) 3,000 unit PO TID WITH MEALS [facility] Last Admin: 10/29/17 13:04 Dose: 3,000 unit Latanoprost (Xalatan 0.005%*) 1 drop BOTH EYES BEDTIME [facility] Last Admin: 10/28/17 21:04 Dose: Not Given Magnesium Oxide (Magox 400 Tab*) 400 mg PO DAILY [facility] Last Admin: 10/29/17 13:03 Dose: 400 mg Multivitamins/Minerals (Theragran/Minerals Tab*) 1 tab PO DAILY [facility] Last Admin: 10/29/17 13:05 Dose: 1 tab Nicotine (Nicotine Inhaler*) 10 mg INH Q2H PRN PRN Reason: CRAVING Last Admin: 09/04/17 10:42 Dose: 10 mg Nicotine (Nicotine Patch 14 Mg/24 Hr*) 1 patch TRANSDERM DAILY [facility] Last Admin: 10/29/17 13:06 Dose: Not Given Nystatin (Nystatin Cream*) 1 applic TOPICAL BID PRN PRN Reason: YEAST INFECTION Last Admin: 10/05/17 12:12 Dose: 1 apply Omeprazole (Prilosec Cap*) 20 mg PO DAILY [facility] Last Admin: 10/29/17 13:03 Dose: 20 mg Oxybutynin Chloride (Ditropan Xl Tab*) 10 mg PO DAILY [facility] Last Admin: 10/29/17 13:04 Dose: 10 mg Pharmacy Profile Note (Nicotine Patch Removal Note*) 1 note PATCH OFF 2100 [facility] Last Admin: 10/28/17 21:04 Dose: Not Given Quetiapine Fumarate (Seroquel Tab*) 25 mg PO BEDTIME PRN PRN Reason: insomnia Last Admin: 10/19/17 22:09 Dose: 25 mg Quetiapine Fumarate (Seroquel Xr Tab*) 50 mg PO DAILY@17 [facility] Last Admin: 10/28/17 16:53 Dose: 50 mg Timolol Maleate (Timoptic 0.5% Opth*) 1 drop BOTH EYES BEDTIME [facility] Last Admin: 10/28/17 21:04 Dose: Not Given Tiotropium [place] (Spiriva Cap.Inh*) 1 cap INH DAILY [facility] Last Admin: 10/29/17 13:06 Dose: 1 cap Tramadol HCl (Ultram*) 50 mg PO Q6H PRN PRN Reason: PAIN Last Admin: 10/29/17 13:08 Dose: 50 mg Trazodone HCl (Desyrel Tab*) 50 mg PO BEDTIME PRN PRN Reason: SLEEP Last Admin: 10/17/17 21:07 Dose: 50 mg
[2017-10-29] MEDS: QUEtiapine XR TAB* 50 MG PO SCH (16:47)
[2017-10-29] MEDS: Atorvastatin* 20 MG TAB PO SCH (21:44)
[2017-10-29] MEDS: Latanoprost 0.005%* 2.5 ml BTL BOTH EYES SCH (21:45)
[2017-10-29] MEDS: Nicotine Patch Removal NOTE PATCH OFF SCH (21:45)
[2017-10-29] MEDS: Timolol 0.5% OPTH.SOL* BTL BOTH EYES SCH (21:45)
[2017-10-29] MEDS: Divalproex ER TAB(*) 500 MG PO SCH (21:45)
[2017-10-29] MEDS: Albuterol HFA INHALER* 8 gm MDI INH SCH (21:47)
[2017-10-30] MEDS: Oxybutynin XL TAB* 5 MG PO SCH (12:24)
[2017-10-30] MEDS: Acetaminophen TAB* 325 MG PO SCH ×2 (12:24→21:06)
[2017-10-30] MEDS: DULoxetine DR CAP* 60 MG CAP.DR PO SCH (12:24)
[2017-10-30] MEDS: Aspirin EC TAB* 81 MG TAB.EC PO SCH (12:25)
[2017-10-30] MEDS: Magnesium Oxide TAB* 400 MG PO SCH (12:25)
[2017-10-30] MEDS: Multivitamins/Minerals TAB PO SCH (12:25)
[2017-10-30] MEDS: LACTASE ENZYME 3000 UNIT PO SCH ×3 (12:26→17:13)
[2017-10-30] MEDS: amLODIPine TAB* 5 MG PO SCH (12:26)
[2017-10-30] MEDS: Omeprazole CAP* 20 MG PO SCH (12:26)
[2017-10-30] MEDS: Nicotine PATCH 14 MG/24 HR* PATCH TRANSDERM SCH (12:26)
[2017-10-30] MEDS: traMADol TAB* 50 MG PO PRN (12:27)
[2017-10-30] MEDS: Tiotropium CAP.INH* CAP.INH/18 MCG (USE ORDER SET !) INH SCH (12:28)
[2017-10-30] MEDS: QUEtiapine XR TAB* 50 MG PO SCH (17:13)
[2017-10-30] MEDS: Albuterol HFA INHALER* 8 gm MDI INH SCH (21:05)
[2017-10-30] MEDS: Atorvastatin* 20 MG TAB PO SCH (21:06)
[2017-10-30] MEDS: Divalproex ER TAB(*) 500 MG PO SCH (21:06)
[2017-10-30] MEDS: Nicotine Patch Removal NOTE PATCH OFF SCH (21:07)
[2017-10-30] MEDS: Timolol 0.5% OPTH.SOL* BTL BOTH EYES SCH (21:07)
[2017-10-30] MEDS: Latanoprost 0.005%* 2.5 ml BTL BOTH EYES SCH (21:07)
[2017-10-31] MEDS: Aspirin EC TAB* 81 MG TAB.EC PO SCH (11:36)
[2017-10-31] MEDS: Oxybutynin XL TAB* 5 MG PO SCH (11:37)
[2017-10-31] MEDS: LACTASE ENZYME 3000 UNIT PO SCH ×3 (11:37→17:04)
[2017-10-31] MEDS: Multivitamins/Minerals TAB PO SCH (11:37)
[2017-10-31] MEDS: DULoxetine DR CAP* 60 MG CAP.DR PO SCH (11:38)
[2017-10-31] MEDS: Acetaminophen TAB* 325 MG PO SCH ×2 (11:38→20:06)
[2017-10-31] MEDS: Magnesium Oxide TAB* 400 MG PO SCH (11:38)
[2017-10-31] MEDS: traMADol TAB* 50 MG PO PRN (11:39)
[2017-10-31] MEDS: Omeprazole CAP* 20 MG PO SCH (11:39)
[2017-10-31] MEDS: Nicotine PATCH 14 MG/24 HR* PATCH TRANSDERM SCH (11:39)
[2017-10-31] MEDS: Tiotropium CAP.INH* CAP.INH/18 MCG (USE ORDER SET !) INH SCH (11:39)
[2017-10-31] MEDS: amLODIPine TAB* 5 MG PO SCH (11:40)
[2017-10-31] MEDS: QUEtiapine XR TAB* 50 MG PO SCH (17:04)
[2017-10-31] MEDS: Albuterol HFA INHALER* 8 gm MDI INH SCH (20:05)
[2017-10-31] MEDS: Atorvastatin* 20 MG TAB PO SCH (20:06)
[2017-10-31] MEDS: Divalproex ER TAB(*) 500 MG PO SCH (20:06)
[2017-10-31] MEDS: Nicotine Patch Removal NOTE PATCH OFF SCH (20:08)
[2017-10-31] MEDS: Latanoprost 0.005%* 2.5 ml BTL BOTH EYES SCH (20:08)
[2017-10-31] MEDS: Timolol 0.5% OPTH.SOL* BTL BOTH EYES SCH (20:08)
[2017-11-01] MEDS: Omeprazole CAP* 20 MG PO SCH (11:22)
[2017-11-01] MEDS: Aspirin EC TAB* 81 MG TAB.EC PO SCH (11:23)
[2017-11-01] MEDS: Tiotropium CAP.INH* CAP.INH/18 MCG (USE ORDER SET !) INH SCH ×2 (11:23→14:42)
[2017-11-01] MEDS: DULoxetine DR CAP* 60 MG CAP.DR PO SCH (11:24)
[2017-11-01] MEDS: Oxybutynin XL TAB* 5 MG PO SCH (11:24)
[2017-11-01] MEDS: Multivitamins/Minerals TAB PO SCH (11:25)
[2017-11-01] MEDS: Magnesium Oxide TAB* 400 MG PO SCH (11:25)
[2017-11-01] MEDS: LACTASE ENZYME 3000 UNIT PO SCH ×3 (11:25→16:58)
[2017-11-01] MEDS: Acetaminophen TAB* 325 MG PO SCH ×2 (11:26→21:57)
[2017-11-01] MEDS: traMADol TAB* 50 MG PO PRN (11:26)
[2017-11-01] MEDS: amLODIPine TAB* 5 MG PO SCH (11:27)
[2017-11-01] MEDS: Nicotine PATCH 14 MG/24 HR* PATCH TRANSDERM SCH (11:28)
--- NOTE | 2017-11-01 11:54 | PN ---
Subjective - Subjective Subjective: Psychiatric Attending Progress Note: patient is very enthusiastic about upcoming discharge this Wednesday. no somatic complaints. vitals remain stable appetite good. sleeping well. patient denies SI,HI, psychotic symptoms. Objective - Appearance Appearance: Well Developed/Nourished Dysmorphic Features: No Hygiene: Normal Grooming: Fairly Well Kept - Behavior Psychomotor Activities: Normal Exhibits Abnormal Movement: No - Attitude and Relatedness Attitude and Relatedness: Cooperative Eye Contact: Fair - Speech Quality: Unpressured Latencies: Normal Quantity: Appropriate - Mood Patient's Decription of Mood: "Good" - Affect Observed Affect: Expansive - Thought Process Patient's Thought Process: Coherent Thought Content: No Passive Wish, No Suicidal Planning, No Homicidal Ideation, No Paranoid Ideation - Sensorium Experiencing Hallucinations: No, Sensorium is Clear Type of Hallucinations: Visual: No, Auditory: No, Command: No - Level of Consciousness Orientation: Yes Intact, Yes Orientated to Time, Yes Orientated to Place, Yes Orientated to Person - Impulse Control Impulse Control: Intact - Insight and Judgement Insight and Judgement: Good - Group Participation Particating in Group Activities: Yes - Medication Management Medication Management Adherence: Yes Assessment - Assessment Inpatient DSM-V Dx: F25.0 Clinical Impression: schizoaffective disorder bipolar type. current episode unspecified patient is currently euthymic. She has baseline grandiose belief that she is writing a novel but is not preoccupied all day long with this belief. Her affect is full range to expansive. She has not exhibited irritability, aggression, or disruptive behavior since being admitted to out behavioral health unit 7 weeks ago. She is medication compliant. She is awaiting placement Plan - Plan Treatment Plan: Plan: Continue medication regimen unchanged. To be transferred to transitional living program on 11/03/2017 Medications: Current Medications Acetaminophen (Tylenol Tab*) 975 mg PO BID [facility] Last Admin: 11/01/17 11:26 Dose: 975 mg Al Hydrox/Mg Hydrox/Simethicone (Maalox Plus*) 30 ml PO Q4H PRN PRN Reason: INDIGESTION Last Admin: 10/07/17 00:50 Dose: 30 ml Albuterol (Ventolin Hfa Inhaler*) 2 puff INH BEDTIME [facility] Last Admin: 10/31/17 20:05 Dose: 2 puff Albuterol (Ventolin Hfa Inhaler*) 2 puff INH Q4H PRN PRN Reason: SOB/WHEEZING Amlodipine Besylate (Norvasc Tab*) 7.5 mg PO DAILY [facility] Last Admin: 11/01/17 11:27 Dose: 7.5 mg Aspirin (Aspirin Ec Tab*) 81 mg PO DAILY [facility] Last Admin: 11/01/17 11:23 Dose: 81 mg Atorvastatin Calcium (Lipitor*) 20 mg PO BEDTIME [facility] Last Admin: 10/31/17 20:06 Dose: 20 mg Device (Nicotine Mouth Piece*) 1 each INH .USE WITH NICOTROL PRN PRN Reason: CRAVING Last Admin: 09/02/17 16:38 Dose: 1 each Divalproex Sodium (Depakote Er Tab(*)) 500 mg PO BEDTIME [facility] Last Admin: 10/31/17 20:06 Dose: 500 mg Duloxetine HCl (Cymbalta Cap*) 60 mg PO DAILY [facility] Last Admin: 11/01/17 11:24 Dose: 60 mg Lactase (Lactaid Fast Act (Nf)) 3,000 unit PO TID WITH MEALS [facility] Last Admin: 11/01/17 11:26 Dose: Not Given Latanoprost (Xalatan 0.005%*) 1 drop BOTH EYES BEDTIME [facility] Last Admin: 10/31/17 20:08 Dose: Not Given Magnesium Oxide (Magox 400 Tab*) 400 mg PO DAILY [facility] Last Admin: 11/01/17 11:25 Dose: 400 mg Multivitamins/Minerals (Theragran/Minerals Tab*) 1 tab PO DAILY [facility] Last Admin: 11/01/17 11:25 Dose: 1 tab Nicotine (Nicotine Inhaler*) 10 mg INH Q2H PRN PRN Reason: CRAVING Last Admin: 09/04/17 10:42 Dose: 10 mg Nicotine (Nicotine Patch 14 Mg/24 Hr*) 1 patch TRANSDERM DAILY [facility] Last Admin: 11/01/17 11:28 Dose: Not Given Nystatin (Nystatin Cream*) 1 applic TOPICAL BID PRN PRN Reason: YEAST INFECTION Last Admin: 10/05/17 12:12 Dose: 1 apply Omeprazole (Prilosec Cap*) 20 mg PO DAILY [facility] Last Admin: 11/01/17 11:22 Dose: 20 mg Oxybutynin Chloride (Ditropan Xl Tab*) 10 mg PO DAILY [facility] Last Admin: 11/01/17 11:24 Dose: 10 mg Pharmacy Profile Note (Nicotine Patch Removal Note*) 1 note PATCH OFF 2100 [facility] Last Admin: 10/31/17 20:08 Dose: Not Given Quetiapine Fumarate (Seroquel Tab*) 25 mg PO BEDTIME PRN PRN Reason: insomnia Last Admin: 10/19/17 22:09 Dose: 25 mg Quetiapine Fumarate (Seroquel Xr Tab*) 50 mg PO DAILY@17 [facility] Last Admin: 10/31/17 17:04 Dose: 50 mg Timolol Maleate (Timoptic 0.5% Opth*) 1 drop BOTH EYES BEDTIME [facility] Last Admin: 10/31/17 20:08 Dose: Not Given Tiotropium [place] (Spiriva Cap.Inh*) 1 cap INH DAILY [facility] Last Admin: 10/31/17 11:39 Dose: 1 cap Tramadol HCl (Ultram*) 50 mg PO Q6H PRN PRN Reason: PAIN Last Admin: 11/01/17 11:26 Dose: 50 mg Trazodone HCl (Desyrel Tab*) 50 mg PO BEDTIME PRN PRN Reason: SLEEP Last Admin: 10/17/17 21:07 Dose: 50 mg
[2017-11-01] MEDS: QUEtiapine XR TAB* 50 MG PO SCH (16:58)
[2017-11-01] MEDS: Divalproex ER TAB(*) 500 MG PO SCH (21:57)
[2017-11-01] MEDS: Atorvastatin* 20 MG TAB PO SCH (21:57)
[2017-11-01] MEDS: Albuterol HFA INHALER* 8 gm MDI INH SCH (21:58)
[2017-11-01] MEDS: Latanoprost 0.005%* 2.5 ml BTL BOTH EYES SCH (22:02)
[2017-11-01] MEDS: Timolol 0.5% OPTH.SOL* BTL BOTH EYES SCH (22:03)
[2017-11-01] MEDS: Nicotine Patch Removal NOTE PATCH OFF SCH (22:03)
[2017-11-02] MEDS: traMADol TAB* 50 MG PO PRN ×2 (07:42→17:51)
[2017-11-02] MEDS: Oxybutynin XL TAB* 5 MG PO SCH (09:53)
[2017-11-02] MEDS: Magnesium Oxide TAB* 400 MG PO SCH (09:53)
[2017-11-02] MEDS: DULoxetine DR CAP* 60 MG CAP.DR PO SCH (09:53)
[2017-11-02] MEDS: LACTASE ENZYME 3000 UNIT PO SCH ×3 (09:53→17:46)
[2017-11-02] MEDS: Aspirin EC TAB* 81 MG TAB.EC PO SCH (09:53)
[2017-11-02] MEDS: Multivitamins/Minerals TAB PO SCH (09:54)
[2017-11-02] MEDS: Acetaminophen TAB* 325 MG PO SCH ×2 (09:54→19:50)
[2017-11-02] MEDS: amLODIPine TAB* 5 MG PO SCH (09:54)
[2017-11-02] MEDS: Omeprazole CAP* 20 MG PO SCH (09:54)
[2017-11-02] MEDS: Tiotropium CAP.INH* CAP.INH/18 MCG (USE ORDER SET !) INH SCH (09:55)
[2017-11-02] MEDS: Nicotine PATCH 14 MG/24 HR* PATCH TRANSDERM SCH (10:26)
[2017-11-02] MEDS: QUEtiapine XR TAB* 50 MG PO SCH (17:47)
[2017-11-02] MEDS: Divalproex ER TAB(*) 500 MG PO SCH (19:49)
[2017-11-02] MEDS: Atorvastatin* 20 MG TAB PO SCH (19:49)
[2017-11-02] MEDS: Albuterol HFA INHALER* 8 gm MDI INH SCH (19:51)
[2017-11-02] MEDS: QUEtiapine TAB* 25 MG PO PRN (19:52)
[2017-11-02] MEDS: Timolol 0.5% OPTH.SOL* BTL BOTH EYES SCH (19:53)
[2017-11-02] MEDS: Latanoprost 0.005%* 2.5 ml BTL BOTH EYES SCH (19:53)
[2017-11-03] MEDS: Nicotine Patch Removal NOTE PATCH OFF SCH (00:53)
[2017-11-03] MEDS: Nicotine PATCH 14 MG/24 HR* PATCH TRANSDERM SCH (07:44)
[2017-11-03] MEDS: Tiotropium CAP.INH* CAP.INH/18 MCG (USE ORDER SET !) INH SCH (07:48)
[2017-11-03 07:51] VITALS: BP 155/78
[2017-11-03] MEDS: amLODIPine TAB* 5 MG PO SCH (07:52)
[2017-11-03] MEDS: Multivitamins/Minerals TAB PO SCH (07:52)
[2017-11-03] MEDS: Omeprazole CAP* 20 MG PO SCH (07:52)
[2017-11-03] MEDS: Magnesium Oxide TAB* 400 MG PO SCH (07:52)
[2017-11-03] MEDS: DULoxetine DR CAP* 60 MG CAP.DR PO SCH (07:52)
[2017-11-03] MEDS: Aspirin EC TAB* 81 MG TAB.EC PO SCH (07:53)
[2017-11-03] MEDS: Acetaminophen TAB* 325 MG PO SCH (07:54)
[2017-11-03] MEDS: Oxybutynin XL TAB* 5 MG PO SCH (07:55)
[2017-11-03] MEDS: LACTASE ENZYME 3000 UNIT PO SCH (08:00)
--- NOTE | 2017-11-03 11:33 | DS ---
Treatment Course & Assessment Clinical Course & Impression: schizoaffective disorder bipolar type. current episode unspecified patient is currently euthymic. She has baseline grandiose belief that she is writing a novel but is not preoccupied all day long with this belief. Her affect is full range to expansive. She has not exhibited irritability, aggression, or disruptive behavior since being admitted to out behavioral health unit 7 weeks ago. She is medication compliant. She is awaiting placement Inpatient DSM-V Dx: F25.0 Discharge Planning - Discharge Planning Discharge Planning: Prescriptions provided for discharge [] Yes [] No Follow up care details as per social work arrangements. Patient response to discharge plan: [] eager for discharge [] agreeable with discharge plan [] ambivalent about discharge [] disagrees with discharge today
== END 2017-11-03 08:15 | DRG 885 ==
LOC: ED 18:06 → BSU 08-30 18:01
PROVIDERS: ADMIT Psychiatry & Neurology Psychiatry; ATTEND Psychiatry & Neurology Psychiatry
PROC: GZHZZZZ Group Psychotherapy (ICD-10-PCS; principal; 2017-10-28)
DX: F25.0 Schizoaffective disorder, bipolar type (principal); Z91.5 Personal history of self-harm; I10 Essential (primary) hypertension; E78.5 Hyperlipidemia, unspecified; K21.9 Gastro-esophageal reflux disease without esophagitis; H40.9 Unspecified glaucoma; J44.9 Chronic obstructive pulmonary disease, unspecified; Z81.8 Family history of other mental and behavioral disorders; G89.29 Other chronic pain; M54.5 Low back pain; R32 Unspecified urinary incontinence; M54.2 Cervicalgia; G31.84 Mild cognitive impairment of uncertain or unknown etiology; Z85.3 Personal history of malignant neoplasm of breast; Z90.11 Acquired absence of right breast and nipple; Z92.21 Personal history of antineoplastic chemotherapy; Z92.3 Personal history of irradiation; Z83.3 Family history of diabetes mellitus; Z82.49 Family history of ischemic heart disease and other diseases of the circulatory system; Z86.19 Personal history of other infectious and parasitic diseases; F17.210 Nicotine dependence, cigarettes, uncomplicated; M19.011 Primary osteoarthritis, right shoulder; E66.9 Obesity, unspecified; Z68.30 Body mass index [BMI] 30.0-30.9, adult; R20.8 Other disturbances of skin sensation
CPT/HCPCS: 36415; 71046; 76604; 80053; 80061; 80164; 80307; 80320; 80329; 81003; 81015; 82565; 83036; 83605; 84443; 85025; 87086; 90853; 93005; 99222; 99231; 99232; 99238; 99284; A9270-GY; G0480; G8978-GP-CI; G8979-GP-CI; G8980-GP-CI; G8987-GO-CI; G8988-GO-CI; G8989-GO-CI